=== PATIENT | male | born 1930 | race Caucasian/White ===

== ENCOUNTER → 2016-12-07 | Outpatient (CLI) | payer MEDICARE, MEDICAID | LOC: RAD 12:40 | PROVIDERS: ATTEND Internal Medicine | DX: D41.02 Neoplasm of uncertain behavior of left kidney (principal) | CPT/HCPCS: 74177; 82565 ==

== ENCOUNTER 2017-02-22 13:03 | Observation (INO) | payer MEDICARE, MEDICAID ==
[2017-02-22 14:39] LABS: ALANINE AMINOTRANSFERASE 21 U/L (21-72); ALBUMIN 3.6 g/dL (3.5-5.0); ALKALINE PHOSPHATASE 105 U/L (38-126); ANION GAP 10 (5-19); ASPARTATE AMINO TRANSFERASE 20 U/L (17-59); BILIRUBIN,DIRECT 0.3 mg/dL (0.0-0.4); BILIRUBIN,TOTAL 0.6 mg/dL (0.2-1.3); BLOOD UREA NITROGEN 12 mg/dL (7-20); CALCIUM 8.3 mg/dL (8.4-10.2); CARBON DIOXIDE 22 mmol/L (22-30); CHLORIDE 107 mmol/L (98-107); CREATINE KINASE 66 U/L (55-170); CREATININE RESULT 0.98 mg/dL (0.52-1.25); GLUCOSE 129 mg/dL (75-110); POTASSIUM 4.2 mmol/L (3.6-5.0); SODIUM 138.8 mmol/L (137-145); TOTAL PROTEIN 6.8 g/dL (6.3-8.2)
[2017-02-22 14:41] LABS: ABSOLUTE BASOPHILS # (AUTO) 0.1 10^3/uL (0.0-0.2); ABSOLUTE EOSINOPHILS # (AUTO) 0.3 10^3/uL (0.0-0.6); ABSOLUTE LYMPHOCYTES (AUTO) 1.8 10^3/uL (0.5-4.7); ABSOLUTE MONOCYTES (AUTO) 0.8 10^3/uL (0.1-1.4); ABSOLUTE NEUT (AUTO) 5.7 10^3/uL (1.7-8.2); BASOPHILS % (AUTO) 0.7 % (0-2); EOSINOPHILS % (AUTO) 3.5 % (0-6); HEMATOCRIT 38.1 % (37.9-51.0); HEMOGLOBIN 13.4 g/dL (13.5-17.0); HGB HCT DIFFERENCE 2.1; LYMPHOCYTES % (AUTO) 21.3 % (13-45); MEAN CORPUSCULAR HEMOGLOBIN 32.1 pg (27.0-33.4); MEAN CORPUSCULAR HGB CONC 35.3 g/dL (32.0-36.0); MEAN CORPUSCULAR VOLUME 91 fl (80-97); MONOCYTES % (AUTO) 8.6 % (3-13); RED BLOOD COUNT 4.19 10^6/uL (4.35-5.55); RED CELL DISTRIBUTION WIDTH 13.9 % (11.5-14.0); SEGMENTED NEUTROPHILS % (AUTO) 65.9 % (42-78); WHITE BLOOD COUNT 8.7 10^3/uL (4.0-10.5)
--- NOTE | 2017-02-22 14:58 | RADIOLOGY REPORT (SQ) ---
EXAM DESCRIPTION: CHEST SINGLE VIEW COMPLETED DATE/TIME: 02/22/2017 2:43 pm REASON FOR STUDY: chest pain COMPARISON: July 2016 EXAM PARAMETERS: NUMBER OF VIEWS: One view. TECHNIQUE: Single frontal radiographic view of the chest acquired. RADIATION DOSE: NA LIMITATIONS: None. FINDINGS: LUNGS AND PLEURA: No opacities, masses or pneumothorax. No pleural effusion. MEDIASTINUM AND HILAR STRUCTURES: No masses. Contour normal. HEART AND VASCULAR STRUCTURES: Heart normal in size. Normal vasculature. BONES: No acute findings. HARDWARE: None in the chest. OTHER: No other significant finding. IMPRESSION: NO ACUTE RADIOGRAPHIC FINDING IN THE CHEST. TECHNICAL DOCUMENTATION: JOB ID: [id number]
--- NOTE | 2017-02-22 15:31 | ER Document Report ---
ED General - General Chief Complaint: Chest Pain Stated Complaint: CHEST PAIN Time Seen by Provider: 02/22/17 13:17 Mode of Arrival: Ambulatory Information source: Patient Notes: 86-year-old male history of 4 previous cardiac stents presents with complaints of chest pain. Patient also notes that he has a buttocks abscess on the right. Patient notes his chest pain is what brought him in a while is here he would like his abscess evaluated as well. Patient denies any shortness of breath difficulty breathing denies this feeling like previous heart attacks TRAVEL OUTSIDE OF THE [place] IN LAST 30 DAYS: No - HPI Onset: Just prior to arrival Onset/Duration: Persistent Quality of pain: Achy Severity: Mild Pain Level: 1 Associated symptoms: Chest pain, Other Exacerbated by: Movement, Walking - Puts pressure on his right buttocks abscess Relieved by: Other - Chest pain improved with nitroglycerin Similar symptoms previously: Yes Recently seen / treated by doctor: Yes - Related Data Allergies/Adverse Reactions: Sulfa (Sulfonamide Antibiotics) Allergy (Unknown, Verified 02/22/17 13:23) RASH Past Medical History - Social History Smoking Status: Current Some Day Smoker Cigarette use (# per day): Yes Chew tobacco use (# tins/day): No Smoking Education Provided: No Frequency of alcohol use: "former drinker" Drug Abuse: None Family History: Reviewed & Not Pertinent, CAD - Past Medical History Cardiac Medical History: Reports: Hx Coronary Artery Disease, Hx Heart Attack, Hx Hypercholesterolemia, Hx Hypertension Denies: Hx Atrial Fibrillation, Hx Congestive Heart Failure, Hx Peripheral Vascular Disease, Hx Pulmonary Embolism, Hx Heart Murmur Pulmonary Medical History: Reports: Hx Bronchitis, Hx Pneumonia Denies: Hx Asthma, Hx COPD, Hx Respiratory Failure, Hx Sleep Apnea, Hx Tuberculosis Neurological Medical History: Reports: Hx Cerebrovascular Accident - L SIDE WEAKNESS. Denies: Hx Seizures Endocrine Medical History: Denies: Hx Graves' Disease, Hx Hyperthyroidism, Hx Hypothyroidism Renal/ Medical History: Denies: Hx Benign Prostatic Hyperplasia, Hx End Stage Renal Disease, Hx Kidney Stones, Hx Peritoneal Dialysis Malignancy Medical History: Denies Hx Leukemia, Denies Hx Lung Cancer GI Medical History: Reports: Hx Gastroesophageal Reflux Disease, Hx Hepatitis. Denies: Hx Crohn's Disease, Hx Hiatal Hernia, Hx Irritable Bowel, Hx Liver Failure, Hx Ulcer Musculoskeltal Medical History: Reports Hx Arthritis, Denies Hx Fibromyalgia, Denies Hx Multiple Sclerosis, Denies Hx Muscular Dystrophy Skin Medical History: Reports Hx MRSA Psychiatric Medical History: Reports: Hx Anxiety, Hx Dementia, Hx Depression Denies: Hx Bipolar Disorder, Hx Post Traumatic Stress Disorder, Hx Schizophrenia Traumatic Medical History: Reports: Hx Fractures Infectious Medical History: Reports: Hx Hepatitis. Denies: Hx HIV Past Surgical History: Reports: Hx Abdominal Surgery, Hx Appendectomy, Hx Cardiac Catheterization, Hx Cardiac Surgery - x4, Hx Coronary Stent - X 4. Denies: Hx Bowel Surgery, Hx Cholecystectomy, Hx Colostomy, Hx Coronary Artery Bypass Graft, Hx Gastric Bypass Surgery, Hx Herniorrhaphy, Hx Open Heart Surgery , Hx Pacemaker, Hx Tonsillectomy - Immunizations Immunizations up to date: Yes Hx Diphtheria, Pertussis, Tetanus Vaccination: Yes Hx Pneumococcal Vaccination: 08/05/10 Review of Systems - Review of Systems Notes: REVIEW OF SYSTEMS: CONSTITUTIONAL : Denies fever, chills, or sweats. Denies recent illness. EENT: Denies eye, ear, throat, or mouth pain or symptoms. Denies nasal or sinus congestion or discharge. Denies throat, tongue, or mouth swelling or difficulty swallowing. CARDIOVASCULAR: Admits to chest pain RESPIRATORY: Denies cough, cold, or chest congestion. Denies shortness of breath, difficulty breathing, or wheezing. GASTROINTESTINAL: Denies abdominal pain or distention. Denies nausea, vomiting , or diarrhea. Denies blood in vomitus, stools, or per rectum. Denies black, tarry stools. Denies constipation. GENITOURINARY: Denies difficulty urinating, painful urination, burning, frequency, blood in urine, or discharge. MUSCULOSKELETAL: Denies back or neck pain or stiffness. Denies joint pain or swelling. SKIN: Admits to buttocks abscess HEMATOLOGIC : Denies easy bruising or bleeding. LYMPHATIC: Denies swollen, enlarged glands. NEUROLOGICAL: Denies confusion or altered mental status. Denies passing out or loss of consciousness. Denies dizziness or lightheadedness. Denies headache. Denies weakness or paralysis or loss of use of either side. Denies problems with gait or speech. Denies sensory loss, numbness, or tingling. Denies seizures. PSYCHIATRIC: Denies anxiety or stress. Denies depression, suicidal ideation, or homicidal ideation. ALL OTHER SYSTEMS REVIEWED AND NEGATIVE. Dictation was performed using Dragon voice recognition software PHYSICAL EXAMINATION: GENERAL: Well-appearing, well-nourished and in no acute distress. HEAD: Atraumatic, normocephalic. EYES: Pupils equal round and reactive to light, extraocular movements intact, sclera anicteric, conjunctiva are normal. ENT: Nares patent, oropharynx clear without exudates. Moist mucous membranes. NECK: Normal range of motion, supple without lymphadenopathy LUNGS: Breath sounds clear to auscultation bilaterally and equal. No wheezes rales or rhonchi. HEART: Regular rate and rhythm without murmurs ABDOMEN: Soft, nontender, nondistended abdomen. No guarding, no rebound. No masses appreciated. Musculoskeletal: Normal range of motion, no pitting or edema. No cyanosis. NEUROLOGICAL: Cranial nerves grossly intact. Normal speech, normal gait. Normal sensory, motor exams PSYCH: Normal mood, normal affect. SKIN: 2 x 3 cm abscess of the right buttocks with area of cellulitis 5 mm around Physical Exam - Vital signs Vitals: Resp Pulse Ox 13 97 02/22/17 13:13 02/22/17 13:13 Course - Re-evaluation Re-evalutation: 02/22/17 15:30 Area was anesthetized in size mild amount of pus was drained, patient does have normal cardiac enzymes paged 02/22/17 16:00 Cardiac enzymes were negative patient will be observed by primary care physician - Vital Signs Vital signs: Temp Pulse Resp BP Pulse Ox 12 125/68 97 02/22/17 13:19 02/22/17 13:19 02/22/17 13:19 - Laboratory Result Diagrams: 02/22/17 13:18 02/22/17 13:18 Laboratory results interpreted by me: 02/22/17 02/22/17 13:18 13:18 RBC 4.19 L Hgb 13.4 L Glucose 129 H Calcium 8.3 L - Diagnostic Test Radiology reviewed: Image reviewed, Reports reviewed - EKG Interpretation by Me EKG shows normal: Sinus rhythm, Branch, Intervals, QRS Complexes Discharge - Discharge Clinical Impression: Abscess Coronary artery disease Qualifiers: Coronary Disease-Associated Artery/Lesion type: unspecified vessel or lesion type [place] vs. transplanted heart: [place] heart Associated angina: without angina Qualified Code(s): I25.10 - Atherosclerotic heart disease of [place] coronary artery without angina pectoris Chest pain Qualifiers: Chest pain type: unspecified Qualified Code(s): R07.9 - Chest pain, unspecified Condition: Stable Disposition: ADMITTED OBSERVATION Admitting Provider: Alejandra Instructions: Abscess ([facility])
[2017-02-22] MEDS ORDERED: (PENDING PHARMACY ID) (Oxycodone Hcl/Acetaminophen [Oxycodone-Acetaminophen 10-325] 1 TAB) PO PRN (21:41)
[2017-02-22] MEDS ORDERED: OXYCODONE-ACETAMINOPHEN 5-325 MG TABLET PO PRN (21:46)
[2017-02-22] MEDS ORDERED: OXYCODONE HCL IR 5 MG TABLET PO PRN (21:47)
[2017-02-22] MEDS ORDERED: (PENDING PHARMACY ID) (Buspirone Hcl [Buspar 15 Mg Tablet] 7.5 MG) PO SCH (22:00)
[2017-02-22] MEDS ORDERED: (PENDING PHARMACY ID) (Donepezil Hcl [Aricept] 10 MG) PO SCH (22:00)
[2017-02-22] MEDS ORDERED: DONEPEZIL HCL 5 MG TABLET PO SCH (22:00)
[2017-02-22] MEDS ORDERED: ATORVASTATIN CALCIUM 10 MG TABLET PO SCH (22:00)
[2017-02-22] MEDS ORDERED: (PENDING PHARMACY ID) (Pravastatin Sodium [Pravachol] 40 MG) PO SCH (22:00)
[2017-02-22] MEDS ORDERED: RANITIDINE HCL 150 MG PO SCH (22:00)
[2017-02-22] MEDS ORDERED: ALBUTEROL SULFATE HFA (90 MCG/PUFF) 200 PUFF/8.5 GM MDI IH PRN (22:16)
[2017-02-22 22:20] LABS: CREATINE KINASE MB 0.99 ng/mL (<4.55)
[2017-02-22 22:23] LABS: TROPONIN I < 0.012 ng/mL
[2017-02-22] MEDS ORDERED: VALSARTAN 40 MG TABLET ONE (23:35)
[2017-02-22] MEDS: VALSARTAN 40 MG TABLET PO SCH (23:36)
[2017-02-22] MEDS: CARVEDILOL 3.125 MG TABLET PO SCH (23:36)
[2017-02-22] MEDS: FAMOTIDINE 20 MG TABLET PO SCH (23:37)
[2017-02-23 07:44] LABS: CREATINE KINASE MB 0.98 ng/mL (<4.55)
[2017-02-23 07:45] LABS: TROPONIN I < 0.012 ng/mL
[2017-02-23] MEDS ORDERED: ASPIRIN 81 MG TABLET, CHEWABLE PO SCH (10:00)
[2017-02-23] MEDS ORDERED: CLOPIDOGREL BISULFATE 75 MG TABLET PO SCH (10:00)
[2017-02-23] MEDS: CARVEDILOL 3.125 MG TABLET PO SCH (11:15)
[2017-02-23] MEDS: FAMOTIDINE 20 MG TABLET PO SCH (11:15)
[2017-02-23] MEDS: VALSARTAN 40 MG TABLET PO SCH (11:22)
[2017-02-23 13:17] VITALS: BP 126/69
--- NOTE | 2017-02-23 14:29 | PDOC H&P ---
History of Present Illness Admission Date/PCP: 02/22/17 21:08 STEVEN PÉREZ MD History of Present Illness: JERRY PELAEZ is a 86 year old male, Patient is well-known to me he has a history of coronary artery disease, he came to the emergency room for evaluation of an abscess in the buttock, he was evaluated in the emergency room incision and drainage of the abscess was done. He complained of chest pain, because of the underlying history of coronary artery disease the emergency room physician is recommending hospital admission for observation to rule out acute coronary syndrome. He was admitted for 24 hours the cardiac enzymes were negative for any acute myocardial infarction, the chest pain is atypical in character, the pretest probability for ischemic chest pain is very low. Past Medical History Cardiac Medical History: Reports: Coronary Artery Disease, Myocardial Infarction , Hyperlipidema, Hypertension Pulmonary Medical History: Reports: Bronchitis, Pneumonia Malignancy Medical History: Reports: Renal (Kidney) Cancer GI Medical History: Reports: Gastroesophageal Reflux Disease, Hepatitis Musculoskeltal Medical History: Reports: Arthritis Denies: Fibromyalgia Psychiatric Medical History: Reports: Dementia, Depression Past Surgical History Past Surgical History: Reports: Appendectomy, Cardiac Catheterization, Coronary Stent - X 4 Social History Smoking Status: Former Smoker Last Time Smoked: unknown Frequency of Alcohol Use: None Hx Recreational Drug Use: No Drugs: None Hx Prescription Drug Abuse: No Family History Family History: Reviewed & Not Pertinent, CAD Parental Family History Reviewed: Yes Children Family History Reviewed: Yes Sibling(s) Family History Reviewed.: Yes Medication/Allergy Home Medications: Albuterol Sulfate [Proair HFA] 2 puff IH Q4 PRN 02/22/17 Aspirin [Aspirin 81 mg Chewable Tablet] 81 mg PO DAILY 02/22/17 Buspirone HCl [Buspar 15 mg Tablet] 7.5 mg PO Q12 02/22/17 Carvedilol [Coreg 3.125 mg Tablet] 3.125 mg PO Q12 02/22/17 Clopidogrel Bisulfate [Clopidogrel] 75 mg PO DAILY 02/22/17 Donepezil HCl [Aricept] 10 mg PO QHS 02/22/17 Oxycodone HCl/Acetaminophen [Oxycodone-Acetaminophen 10-325] 1 tab PO Q6HP PRN 02/22/17 Pravastatin Sodium [Pravachol] 40 mg PO QHS 07/21/17 Ranitidine HCl [Zantac 75 mg Tablet] 150 mg PO Q12 02/22/17 Valsartan [Diovan 40 mg Tablet] 40 mg PO Q12 02/22/17 Allergies/Adverse Reactions: Sulfa (Sulfonamide Antibiotics) Allergy (Unknown, Verified 02/22/17 13:23) RASH Review of Systems Constitutional: ABSENT: chills, fever(s), headache(s), weight gain, weight loss Eyes: ABSENT: visual disturbances Ears: ABSENT: hearing changes Cardiovascular: PRESENT: chest pain Respiratory: ABSENT: cough, hemoptysis Gastrointestinal: ABSENT: abdominal pain, constipation, diarrhea, hematemesis, hematochezia, nausea, vomiting Genitourinary: ABSENT: dysuria, hematuria Musculoskeletal: ABSENT: joint swelling Integumentary: ABSENT: rash, wounds Neurological: ABSENT: abnormal gait, abnormal speech, confusion, dizziness, focal weakness, syncope Psychiatric: ABSENT: anxiety, depression, homidical ideation, suicidal ideation Endocrine: ABSENT: cold intolerance, heat intolerance, menstrual abnormalities, polydipsia, polyuria Hematologic/Lymphatic: ABSENT: easy bleeding, easy bruising, lymphadenopathy Physical Exam Vital Signs: Temp Pulse Resp BP Pulse Ox 98.1 F 59 L 17 126/69 H 97 02/23/17 13:06 02/23/17 13:06 02/23/17 13:06 02/23/17 13:06 02/23/17 13:06 Intake & Output 02/22/17 02/23/17 02/24/17 06:59 06:59 06:59 Intake Total 500 Output Total 460 Balance 40 General appearance: PRESENT: no acute distress, well-developed, well-nourished Head exam: PRESENT: atraumatic, normocephalic Eye exam: PRESENT: conjunctiva pink, EOMI, PERRLA Mouth exam: PRESENT: moist, tongue midline Neck exam: PRESENT: full ROM Respiratory exam: PRESENT: clear to auscultation alicia Cardiovascular exam: PRESENT: RRR, +S1, +S2 Pulses: PRESENT: normal dorsalis pedis pul, +2 pedal pulses bilateral Vascular exam: PRESENT: normal capillary refill GI/Abdominal exam: PRESENT: normal bowel sounds, soft Rectal exam: PRESENT: deferred Neurological exam: PRESENT: alert, awake, oriented to person, oriented to place , oriented to time, oriented to situation, CN II-XII grossly intact. ABSENT: motor sensory deficit Psychiatric exam: PRESENT: appropriate affect, normal mood. ABSENT: homicidal ideation, suicidal ideation Skin exam: PRESENT: dry, intact, warm, other - There is incised abscess in the buttock. ABSENT: cyanosis, rash Results Laboratory Results: 02/22/17 02/22/17 02/23/17 21:40 21:40 05:50 Creatine Kinase 58 59 CK-MB (CK-2) 0.99 Troponin I < 0.012 02/23/17 05:50 Creatine Kinase CK-MB (CK-2) 0.98 Troponin I < 0.012 Impressions: Chest X-Ray 02/22/17 14:02 IMPRESSION: NO ACUTE RADIOGRAPHIC FINDING IN THE CHEST. Assessment & Plan - Diagnosis (1) Chest pain Qualifiers: Chest pain type: unspecified Qualified Code(s): R07.9 - Chest pain, unspecified Is this a current diagnosis for this admission?: Yes (2) Abscess of buttock, right Is this a current diagnosis for this admission?: Yes
[2017-02-23] MEDS ORDERED: CLINDAMYCIN HCL 150 MG CAPSULE PO SCH (14:30)
--- NOTE | 2017-02-23 14:36 | PDOC DISCHARGE SUMMARY ---
General - Admit/Disc Date/PCP Admission Date/Primary Care Provider: 02/22/17 21:08 STEVEN PÉREZ MD Discharge Date: 02/23/17 - Discharge Diagnosis (1) Chest pain Is this a current diagnosis for this admission?: Yes (2) Abscess of buttock, right Is this a current diagnosis for this admission?: Yes - Additional Information Discharge Diet: As Tolerated Discharge Activity: Activity As Tolerated Home Medications: Albuterol Sulfate [Proair HFA] 2 puff IH Q4 PRN 02/22/17 Aspirin [Aspirin 81 mg Chewable Tablet] 81 mg PO DAILY 02/22/17 Buspirone HCl [Buspar 15 mg Tablet] 7.5 mg PO Q12 02/22/17 Carvedilol [Coreg 3.125 mg Tablet] 3.125 mg PO Q12 02/22/17 Clopidogrel Bisulfate [Clopidogrel] 75 mg PO DAILY 02/22/17 Donepezil HCl [Aricept] 10 mg PO QHS 02/22/17 Oxycodone HCl/Acetaminophen [Oxycodone-Acetaminophen 10-325] 1 tab PO Q6HP PRN 02/22/17 Pravastatin Sodium [Pravachol] 40 mg PO QHS 02/22/17 Ranitidine HCl [Zantac 75 mg Tablet] 150 mg PO Q12 02/22/17 Valsartan [Diovan 40 mg Tablet] 40 mg PO Q12 02/22/17 Clindamycin HCl 300 mg PO Q8 #30 capsule 02/23/17 History of Present Illness History of Present Illness: JERRY PELAEZ is a 86 year old male, Patient is well-known to me he has a history of coronary artery disease, he came to the emergency room for evaluation of an abscess in the buttock, he was evaluated in the emergency room incision and drainage of the abscess was done. He complained of chest pain, because of the underlying history of coronary artery disease the emergency room physician is recommending hospital admission for observation to rule out acute coronary syndrome. He was admitted for 24 hours the cardiac enzymes were negative for any acute myocardial infarction, the chest pain is atypical in character, the pretest probability for ischemic chest pain is very low. Hospital Course Hospital Course: Patient was admitted for management of chest pain, the chest pain is atypical most likely is musculoskeletal chest pain, series of cardiac enzymes were drawn there were negative for acute ID. He came to the emergency room originally for evaluation of an abscess in the right buttock, the abscess was I&D in the emergency room. He complaint of chest pain in the ER, the ED physician is requesting, recommending that patient be admitted to ensure there is no ongoing acute coronary syndrome because of the underlining coronary artery disease. Physical Exam Vital Signs: Temp Pulse Resp BP Pulse Ox 98.1 F 59 L 17 126/69 H 97 02/23/17 13:06 02/23/17 13:06 02/23/17 13:06 02/23/17 13:06 02/23/17 13:06 Intake & Output 02/22/17 02/23/17 02/24/17 06:59 06:59 06:59 Intake Total 500 Output Total 460 Balance 40 General appearance: PRESENT: no acute distress, well-developed, well-nourished Head exam: PRESENT: atraumatic, normocephalic Eye exam: PRESENT: conjunctiva pink, EOMI, PERRLA Neck exam: PRESENT: full ROM Respiratory exam: PRESENT: clear to auscultation alicia Cardiovascular exam: PRESENT: RRR, +S1, +S2 Pulses: PRESENT: normal dorsalis pedis pul, +2 pedal pulses bilateral Vascular exam: PRESENT: normal capillary refill GI/Abdominal exam: PRESENT: normal bowel sounds, soft Rectal exam: PRESENT: deferred Neurological exam: PRESENT: alert, awake, oriented to person, oriented to place , oriented to time, oriented to situation, CN II-XII grossly intact. ABSENT: motor sensory deficit Psychiatric exam: PRESENT: appropriate affect, normal mood Skin exam: PRESENT: dry, intact, warm Results Laboratory Results: 02/22/17 02/22/17 02/23/17 21:40 21:40 05:50 Creatine Kinase 58 59 CK-MB (CK-2) 0.99 Troponin I < 0.012 02/23/17 05:50 Creatine Kinase CK-MB (CK-2) 0.98 Troponin I < 0.012 Impressions: Chest X-Ray 02/22/17 14:02 IMPRESSION: NO ACUTE RADIOGRAPHIC FINDING IN THE CHEST.
--- NOTE | 2017-02-24 13:46 | EKG REPORT ---
SEVERITY:- NORMAL ECG - SINUS RHYTHM : Confirmed by: Marta Jules MD 24-Feb-2017 13:45:25
== END 2017-02-23 14:32 | disposition home or self-care (01) ==
LOC: ER 13:03 → EH 16:35 → UNDOADMOB 16:35 → INTOOBSV 16:35 → OBSVTOIN 16:35 → 4N 19:55 → EH 19:55 → OBSVTOIN 21:08 → EH 21:08 → 4N 21:08 → INTOOBSV 21:08
PROVIDERS: ADMIT Internal Medicine; ATTEND Internal Medicine
PROC: 0H98XZZ Drainage of Buttock Skin, External Approach (ICD-10-PCS; principal; 2017-02-22)
DX: R07.89 Other chest pain (principal); L02.31 Cutaneous abscess of buttock; I25.10 Atherosclerotic heart disease of native coronary artery without angina pectoris; I10 Essential (primary) hypertension; F03.90 Unspecified dementia, unspecified severity, without behavioral disturbance, psychotic disturbance, mood disturbance, and anxiety; K21.9 Gastro-esophageal reflux disease without esophagitis; I69.354 Hemiplegia and hemiparesis following cerebral infarction affecting left non-dominant side; Z79.899 Other long term (current) drug therapy; Z79.82 Long term (current) use of aspirin; Z79.02 Long term (current) use of antithrombotics/antiplatelets; Z95.5 Presence of coronary angioplasty implant and graft; Z85.528 Personal history of other malignant neoplasm of kidney; Z90.49 Acquired absence of other specified parts of digestive tract; Z87.891 Personal history of nicotine dependence; Z82.49 Family history of ischemic heart disease and other diseases of the circulatory system; Z86.14 Personal history of Methicillin resistant Staphylococcus aureus infection
CPT/HCPCS: 93005; 99285; 36415 ×2; 82553 ×2; 82550 ×2; 85025; 80053; 84484 ×2; 71010; 93010; 10060; A9270 ×12; J3490

== ENCOUNTER → 2017-04-04 | Outpatient (CLI) | payer MEDICARE, MEDICAID ==
[2017-04-04 18:31] LABS: CREATININE RESULT 0.93 mg/dL (0.52-1.25)
== END ==
LOC: LAB 17:42
DX: N28.89 Other specified disorders of kidney and ureter (principal)
CPT/HCPCS: 36415; 82565

== ENCOUNTER 2017-09-13 11:37 | Observation (INO) | payer MEDICARE, MEDICAID ==
[2017-09-13 11:58] LABS: ABSOLUTE BASOPHILS # (AUTO) 0.1 10^3/uL (0.0-0.2); ABSOLUTE EOSINOPHILS # (AUTO) 0.2 10^3/uL (0.0-0.6); ABSOLUTE MONOCYTES (AUTO) 0.6 10^3/uL (0.1-1.4); ABSOLUTE NEUT (AUTO) 3.7 10^3/uL (1.7-8.2); BASOPHILS % (AUTO) 0.9 % (0-2); EOSINOPHILS % (AUTO) 3.7 % (0-6); HEMATOCRIT 41.5 % (37.9-51.0); HEMOGLOBIN 14.2 g/dL (13.5-17.0); MEAN CORPUSCULAR HEMOGLOBIN 30.9 pg (27.0-33.4); MEAN CORPUSCULAR HGB CONC 34.2 g/dL (32.0-36.0); MEAN CORPUSCULAR VOLUME 90 fl (80-97); MONOCYTES % (AUTO) 9.2 % (3-13); PLATELET COUNT 286 10^3/uL (150-450); RED CELL DISTRIBUTION WIDTH 14.2 % (11.5-14.0); SEGMENTED NEUTROPHILS % (AUTO) 56.2 % (42-78); TOTAL CELLS COUNTED % (AUTO) 100 %; WHITE BLOOD COUNT 6.7 10^3/uL (4.0-10.5)
[2017-09-13 12:13] LABS: ALANINE AMINOTRANSFERASE 25 U/L (21-72); ALBUMIN 4.2 g/dL (3.5-5.0); ALKALINE PHOSPHATASE 95 U/L (38-126); ANION GAP 10 (5-19); ASPARTATE AMINO TRANSFERASE 20 U/L (17-59); BILIRUBIN,DIRECT 0.1 mg/dL (0.0-0.4); BILIRUBIN,TOTAL 0.5 mg/dL (0.2-1.3); BLOOD UREA NITROGEN 15 mg/dL (7-20); CALCIUM 9.1 mg/dL (8.4-10.2); CARBON DIOXIDE 27 mmol/L (22-30); CHLORIDE 102 mmol/L (98-107); CREATINE KINASE 55 U/L (55-170); GLUCOSE 109 mg/dL (75-110); POTASSIUM 4.1 mmol/L (3.6-5.0); SODIUM 139.3 mmol/L (137-145); TOTAL PROTEIN 6.8 g/dL (6.3-8.2)
--- NOTE | 2017-09-13 12:22 | RADIOLOGY REPORT (SQ) ---
EXAM DESCRIPTION: CHEST SINGLE VIEW COMPLETED DATE/TIME: 09/13/2017 12:13 pm REASON FOR STUDY: chest pain COMPARISON: None. EXAM PARAMETERS: NUMBER OF VIEWS: One view. TECHNIQUE: Single frontal radiographic view of the chest acquired. RADIATION DOSE: NA LIMITATIONS: None. FINDINGS: LUNGS AND PLEURA: No acute infiltrates. MEDIASTINUM AND HILAR STRUCTURES: No masses. Contour normal. HEART AND VASCULAR STRUCTURES: The heart is normal with aortic atherosclerosis. The pulmonary vascul ature normal. BONES: No acute findings. OTHER: Chest leads in place. IMPRESSION: NO ACUTE DISEASE. TECHNICAL DOCUMENTATION: JOB ID: [id number] [id number] [employer]- All Rights Reserved
--- NOTE | 2017-09-13 13:01 | ER Document Report ---
ED Cardiac - General Chief Complaint: Chest Pain Stated Complaint: CHEST PAIN Time Seen by Provider: 09/13/17 11:50 Notes: The patient is an 86-year-old male, past medical history CAD, hypertension, presents with 3 hours of left upper chest pain that resolved after a nitro and 325 mg aspirin by EMS prior to arrival. He is also having mild right upper chest pain with radiation to his shoulder yesterday and this morning. He saw his primary care physician, Dr. Roberts, 2 days ago. Patient denies current chest pain, shortness of breath, nausea, vomiting, back pain, fevers, leg swelling, abdominal pain, numbness, tingling or rash. TRAVEL OUTSIDE OF THE [place] IN LAST 30 DAYS: No - Related Data Allergies/Adverse Reactions: Sulfa (Sulfonamide Antibiotics) Allergy (Unknown, Verified 09/13/17 11:49) RASH Past Medical History - General Information source: Patient - Social History Smoking Status: Unknown if Ever Smoked Family History: Reviewed & Not Pertinent, CAD Patient has suicidal ideation: No Patient has homicidal ideation: No - Past Medical History Cardiac Medical History: Reports: Hx Coronary Artery Disease, Hx Heart Attack, Hx Hypercholesterolemia, Hx Hypertension Denies: Hx Atrial Fibrillation, Hx Congestive Heart Failure, Hx Peripheral Vascular Disease, Hx Pulmonary Embolism, Hx Heart Murmur Pulmonary Medical History: Reports: Hx Bronchitis, Hx Pneumonia Denies: Hx Asthma, Hx COPD, Hx Respiratory Failure, Hx Sleep Apnea, Hx Tuberculosis Neurological Medical History: Reports: Hx Cerebrovascular Accident - L SIDE WEAKNESS. Denies: Hx Seizures Endocrine Medical History: Denies: Hx Graves' Disease, Hx Hyperthyroidism, Hx Hypothyroidism Renal/ Medical History: Denies: Hx Benign Prostatic Hyperplasia, Hx End Stage Renal Disease, Hx Kidney Stones, Hx Peritoneal Dialysis Malignancy Medical History: Denies Hx Leukemia, Denies Hx Lung Cancer, Reports Hx Renal (Kidney) Cancer GI Medical History: Reports: Hx Gastroesophageal Reflux Disease, Hx Hepatitis. Denies: Hx Crohn's Disease, Hx Hiatal Hernia, Hx Irritable Bowel, Hx Liver Failure, Hx Pancreatitis, Hx Ulcer Musculoskeltal Medical History: Reports Hx Arthritis, Denies Hx Fibromyalgia, Denies Hx Multiple Sclerosis, Denies Hx Muscular Dystrophy Skin Medical History: Reports Hx MRSA Psychiatric Medical History: Reports: Hx Anxiety, Hx Dementia, Hx Depression Denies: Hx Bipolar Disorder, Hx Post Traumatic Stress Disorder, Hx Schizophrenia Traumatic Medical History: Reports: Hx Fractures Infectious Medical History: Reports: Hx Hepatitis. Denies: Hx HIV Past Surgical History: Reports: Hx Abdominal Surgery, Hx Appendectomy, Hx Cardiac Catheterization, Hx Cardiac Surgery - x4, Hx Coronary Stent - X 4. Denies: Hx Bowel Surgery, Hx Cholecystectomy, Hx Colostomy, Hx Coronary Artery Bypass Graft, Hx Gastric Bypass Surgery, Hx Herniorrhaphy, Hx Open Heart Surgery , Hx Pacemaker, Hx Tonsillectomy - Immunizations Immunizations up to date: Yes Hx Diphtheria, Pertussis, Tetanus Vaccination: Yes Hx Pneumococcal Vaccination: 08/05/10 Review of Systems - Review of Systems Notes: REVIEW OF SYSTEMS: CONSTITUTIONAL: -fevers, -chills EENT: -eye pain, -difficulty swallowing, -nasal congestion CARDIOVASCULAR: +chest pain, -syncope. RESPIRATORY: -cough, -SOB GASTROINTESTINAL: -abdominal pain, -nausea, -vomiting, -diarrhea GENITOURINARY: -dysuria, -hematuria MUSCULOSKELETAL: -back pain, -neck pain SKIN: -rash or skin lesions. HEMATOLOGIC: -easy bruising or bleeding. LYMPHATIC: -swollen, enlarged glands. NEUROLOGICAL: -altered mental status or loss of consciousness, -headache, - neurologic symptoms PSYCHIATRIC: -anxiety, -depression. ALL OTHER SYSTEMS REVIEWED AND NEGATIVE. Physical Exam - Vital signs Vitals: Temp 98.0 F 09/13/17 11:49 - Notes Notes: PHYSICAL EXAMINATION: GENERAL: Well-appearing, well-nourished and in no acute distress. HEAD: Atraumatic, normocephalic. EYES: Pupils equal round and reactive to light, extraocular movements intact, sclera anicteric, conjunctiva are normal. ENT: nares patent, oropharynx clear without exudates. Moist mucous membranes. NECK: Normal range of motion, supple without lymphadenopathy LUNGS: Breath sounds clear to auscultation bilaterally and equal. No wheezes rales or rhonchi. HEART: Regular rate and rhythm without murmurs ABDOMEN: Soft, nontender, normoactive bowel sounds. No guarding, no rebound. No masses appreciated. EXTREMITIES: Normal range of motion, no pitting or edema. No cyanosis. NEUROLOGICAL: Cranial nerves grossly intact. Normal speech, normal gait. Normal sensory and motor exams. PSYCH: Normal mood, normal affect. SKIN: Warm, Dry, normal turgor, no rashes or lesions noted. Course - Re-evaluation Re-evalutation: Patient is chest pain-free. His EKG does not show any acute changes, chest x- ray is negative for any acute findings and troponins are negative. Mina multiple cardiac risk factors, stress test was attempted to be obtained from the ER, but unable to perform at this time. His HEART score is 7. Symptoms are atypical for aortic dissection or PE at this time and he has remained chest pain -free while in the ER. 09/13/17 15:31 Spoke to his PMD, Dr. Roberts, and he agrees patient requires observation overnight and further evaluation of his chest pain due to his HEART score of 7. - Vital Signs Vital signs: Temp Pulse Resp BP Pulse Ox 98.0 F 96 09/13/17 11:49 09/13/17 11:56 - Laboratory Result Diagrams: 09/13/17 11:41 09/13/17 11:41 Laboratory results interpreted by me: 09/13/17 11:41 RDW 14.2 H - Diagnostic Test Radiology reviewed: Image reviewed, Reports reviewed Radiology results interpreted by me: CXR: NAD - EKG Interpretation by Mo EKG shows normal: Sinus rhythm, [place], Intervals, QRS Complexes, ST-T Waves Rate: Normal When compared to previous EKG there are: No significant change Discharge - Discharge Clinical Impression: Chest pain Qualifiers: Chest pain type: unspecified Qualified Code(s): R07.9 - Chest pain, unspecified Condition: Stable Disposition: ADMITTED OBSERVATION Admitting Provider: Alejandra Unit Admitted: Telemetry
[2017-09-13 16:18] VITALS: BP 152/77
[2017-09-13] MEDS ORDERED: (PENDING PHARMACY ID) (Oxycodone Hcl/Acetaminophen [Percocet 10-325 Mg Tablet] 1 TAB) PO PRN (17:27)
[2017-09-13] MEDS ORDERED: (PENDING PHARMACY ID) (Pravastatin Sodium [Pravachol] 40 MG) PO SCH (17:30)
[2017-09-13] MEDS ORDERED: OXYCODONE-ACETAMINOPHEN 5-325 MG TABLET PO PRN (17:40)
[2017-09-13] MEDS ORDERED: OXYCODONE HCL IR 5 MG TABLET PO PRN (17:41)
[2017-09-13] MEDS ORDERED: ALBUTEROL SULFATE HFA (90 MCG/PUFF) 200 PUFF/8.5 GM MDI IH PRN (17:45)
[2017-09-13] MEDS ORDERED: CLOPIDOGREL BISULFATE 75 MG TABLET PO SCH (18:00)
[2017-09-13] MEDS ORDERED: (PENDING PHARMACY ID) (Ranitidine Hcl [Zantac 150 Mg Tablet] 150 MG) PO SCH (18:00)
[2017-09-13] MEDS ORDERED: MONTELUKAST SODIUM 10 MG TABLET PO SCH (18:00)
[2017-09-13] MEDS ORDERED: ASPIRIN 81 MG TABLET, CHEWABLE PO SCH (18:00)
[2017-09-13] MEDS ORDERED: (PENDING PHARMACY ID) (Buspirone Hcl [Buspar 15 Mg Tablet] 7.5 MG) PO SCH (18:00)
[2017-09-13] MEDS ORDERED: BUSPIRONE HCL 10 MG TABLET PO SCH (22:00)
[2017-09-13] MEDS ORDERED: CARVEDILOL 3.125 MG TABLET PO SCH (22:00)
[2017-09-13] MEDS ORDERED: FAMOTIDINE 20 MG TABLET PO SCH (22:00)
[2017-09-13] MEDS ORDERED: DONEPEZIL HCL 5 MG TABLET PO SCH (22:00)
[2017-09-13] MEDS ORDERED: ATORVASTATIN CALCIUM 10 MG TABLET PO SCH (22:00)
[2017-09-13] MEDS ORDERED: (PENDING PHARMACY ID) (Donepezil Hcl [Aricept] 10 MG) PO SCH (22:00)
[2017-09-13] MEDS ORDERED: VALSARTAN 40 MG TABLET PO SCH (22:00)
--- NOTE | 2017-09-13 22:08 | EKG REPORT ---
SEVERITY:- NORMAL ECG - SINUS RHYTHM : Confirmed by: Austin Mcnulty 13-Sep-2017 22:07:20
== END 2017-09-13 17:05 | disposition left against medical advice (07) ==
LOC: ER 11:37 → EH 15:58
PROVIDERS: ADMIT Internal Medicine; ATTEND Internal Medicine
DX: R07.9 Chest pain, unspecified (principal); I25.10 Atherosclerotic heart disease of native coronary artery without angina pectoris; Z53.21 Procedure and treatment not carried out due to patient leaving prior to being seen by health care provider; I69.354 Hemiplegia and hemiparesis following cerebral infarction affecting left non-dominant side; Z82.49 Family history of ischemic heart disease and other diseases of the circulatory system; Z95.5 Presence of coronary angioplasty implant and graft; Z90.49 Acquired absence of other specified parts of digestive tract
CPT/HCPCS: 36415; 71045; 80053; 82550; 84484; 85025; 93005; 93010; 99285; J3490

== ENCOUNTER 2017-11-19 11:47 | Observation (INO) | payer MEDICARE, MEDICAID ==
[2017-11-19] MEDS ORDERED: ASPIRIN 81 MG TABLET, CHEWABLE PO ONE (13:20)
[2017-11-19 13:46] LABS: ABSOLUTE BASOPHILS # (AUTO) 0.1 10^3/uL (0.0-0.2); ABSOLUTE EOSINOPHILS # (AUTO) 0.3 10^3/uL (0.0-0.6); ABSOLUTE LYMPHOCYTES (AUTO) 2.4 10^3/uL (0.5-4.7); ABSOLUTE NEUT (AUTO) 5.3 10^3/uL (1.7-8.2); EOSINOPHILS % (AUTO) 2.8 % (0-6); HEMATOCRIT 43.4 % (37.9-51.0); HEMOGLOBIN 14.8 g/dL (13.5-17.0); LYMPHOCYTES % (AUTO) 26.8 % (13-45); MEAN CORPUSCULAR HEMOGLOBIN 30.9 pg (27.0-33.4); MEAN CORPUSCULAR HGB CONC 34.1 g/dL (32.0-36.0); MEAN CORPUSCULAR VOLUME 91 fl (80-97); MONOCYTES % (AUTO) 10.9 % (3-13); PLATELET COUNT 283 10^3/uL (150-450); RED BLOOD COUNT 4.79 10^6/uL (4.35-5.55); RED CELL DISTRIBUTION WIDTH 13.9 % (11.5-14.0); SEGMENTED NEUTROPHILS % (AUTO) 58.5 % (42-78); TOTAL CELLS COUNTED % (AUTO) 100 %
[2017-11-19 13:47] LABS: ALANINE AMINOTRANSFERASE 16 U/L (21-72); ALBUMIN 4.3 g/dL (3.5-5.0); ALKALINE PHOSPHATASE 101 U/L (38-126); ANION GAP 10 (5-19); ASPARTATE AMINO TRANSFERASE 31 U/L (17-59); BILIRUBIN,DIRECT 0.5 mg/dL (0.0-0.4); BILIRUBIN,TOTAL 0.7 mg/dL (0.2-1.3); BLOOD UREA NITROGEN 15 mg/dL (7-20); CALCIUM 9.5 mg/dL (8.4-10.2); CARBON DIOXIDE 29 mmol/L (22-30); CHLORIDE 101 mmol/L (98-107); CREATINE KINASE 59 U/L (55-170); GLUCOSE 100 mg/dL (75-110); POTASSIUM 4.6 mmol/L (3.6-5.0); SODIUM 139.5 mmol/L (137-145); TOTAL PROTEIN 8.3 g/dL (6.3-8.2)
[2017-11-19 13:58] LABS: CREATINE KINASE MB 0.91 ng/mL (<4.55)
[2017-11-19 13:59] LABS: TROPONIN I < 0.012 ng/mL
--- NOTE | 2017-11-19 14:14 | RADIOLOGY REPORT (SQ) ---
EXAM DESCRIPTION: CHEST SINGLE VIEW COMPLETED DATE/TIME: 11/19/2017 2:02 pm REASON FOR STUDY: chest pain COMPARISON: CT chest 10/02/2015 Chest films 08/26/2017, 02/22/2017 EXAM PARAMETERS: NUMBER OF VIEWS: One view. TECHNIQUE: Single frontal radiographic view of the chest acquired. RADIATION DOSE: NA LIMITATIONS: None. FINDINGS: LUNGS AND PLEURA: No opacities, masses or pneumothorax. No pleural effusion. MEDIASTINUM AND HILAR STRUCTURES: No masses. Contour normal. HEART AND VASCULAR STRUCTURES: Heart normal in size. Normal vasculature. BONES: Osteopenic. No acute changes HARDWARE: None in the chest. OTHER: No other significant finding. IMPRESSION: NO ACUTE RADIOGRAPHIC FINDING IN THE CHEST. TECHNICAL DOCUMENTATION: JOB ID: [id number] [employer]- All Rights Reserved Reading location - IP/workstation name: [email or web address]
--- NOTE | 2017-11-19 15:10 | ER Document Report ---
ED General - General Chief Complaint: Chest Pain Stated Complaint: CHEST PAIN Time Seen by Provider: 11/19/17 13:20 Mode of Arrival: Medic Information source: Patient, [facility] Records Notes: 87-year-old male history of 5 previous cardiac stents 4 MIs presents with complaints with chest pain . Patient notes it was a pressure sensation midsternal radiating around. Patient denies any fevers or chills denies any nausea or vomiting. Patient denies any swelling in extremities TRAVEL OUTSIDE OF THE [place] IN LAST 30 DAYS: No - HPI Onset: Just prior to arrival Onset/Duration: Sudden Quality of pain: Pressure Severity: Mild Pain Level: 1 Associated symptoms: Chest pain Exacerbated by: Denies Relieved by: Denies Similar symptoms previously: Yes Recently seen / treated by doctor: Yes - Related Data Allergies/Adverse Reactions: Sulfa (Sulfonamide Antibiotics) Allergy (Unknown, Verified 09/13/17 11:49) RASH Home Medications: aspirin. buspirone. carvedilol. clopidogrel. donepezil. pravastatin. ranitidine. valsartan Past Medical History - Social History Smoking Status: Never Smoker Cigarette use (# per day): No Chew tobacco use (# tins/day): No Smoking Education Provided: No Frequency of alcohol use: None Drug Abuse: None Family History: Reviewed & Not Pertinent, CAD Patient has suicidal ideation: No Patient has homicidal ideation: No - Past Medical History Cardiac Medical History: Reports: Hx Coronary Artery Disease, Hx Heart Attack, Hx Hypercholesterolemia, Hx Hypertension Denies: Hx Atrial Fibrillation, Hx Congestive Heart Failure, Hx Peripheral Vascular Disease, Hx Pulmonary Embolism, Hx Heart Murmur Pulmonary Medical History: Reports: Hx Bronchitis, Hx Pneumonia Denies: Hx Asthma, Hx COPD, Hx Respiratory Failure, Hx Sleep Apnea, Hx Tuberculosis Neurological Medical History: Reports: Hx Cerebrovascular Accident - L SIDE WEAKNESS. Denies: Hx Seizures Endocrine Medical History: Denies: Hx Graves' Disease, Hx Hyperthyroidism, Hx Hypothyroidism Renal/ Medical History: Denies: Hx Benign Prostatic Hyperplasia, Hx End Stage Renal Disease, Hx Kidney Stones, Hx Peritoneal Dialysis Malignancy Medical History: Denies Hx Leukemia, Denies Hx Lung Cancer, Reports Hx Renal (Kidney) Cancer GI Medical History: Reports: Hx Gastroesophageal Reflux Disease, Hx Hepatitis. Denies: Hx Crohn's Disease, Hx Hiatal Hernia, Hx Irritable Bowel, Hx Liver Failure, Hx Pancreatitis, Hx Ulcer Musculoskeltal Medical History: Reports Hx Arthritis, Denies Hx Fibromyalgia, Denies Hx Multiple Sclerosis, Denies Hx Muscular Dystrophy Skin Medical History: Reports Hx MRSA Psychiatric Medical History: Reports: Hx Anxiety, Hx Dementia, Hx Depression Denies: Hx Bipolar Disorder, Hx Post Traumatic Stress Disorder, Hx Schizophrenia Traumatic Medical History: Reports: Hx Fractures Infectious Medical History: Reports: Hx Hepatitis. Denies: Hx HIV Past Surgical History: Reports: Hx Abdominal Surgery, Hx Appendectomy, Hx Cardiac Catheterization, Hx Cardiac Surgery - x4, Hx Coronary Stent - X 4. Denies: Hx Bowel Surgery, Hx Cholecystectomy, Hx Colostomy, Hx Coronary Artery Bypass Graft, Hx Gastric Bypass Surgery, Hx Herniorrhaphy, Hx Open Heart Surgery , Hx Pacemaker, Hx Tonsillectomy - Immunizations Immunizations up to date: Yes Hx Diphtheria, Pertussis, Tetanus Vaccination: Yes Hx Pneumococcal Vaccination: 08/05/10 Review of Systems - Review of Systems Notes: REVIEW OF SYSTEMS: CONSTITUTIONAL : Denies fever, chills, or sweats. Denies recent illness. EENT: Denies eye, ear, throat, or mouth pain or symptoms. Denies nasal or sinus congestion or discharge. Denies throat, tongue, or mouth swelling or difficulty swallowing. CARDIOVASCULAR: chest pain RESPIRATORY: Denies cough, cold, or chest congestion. Denies shortness of breath, difficulty breathing, or wheezing. GASTROINTESTINAL: Denies abdominal pain or distention. Denies nausea, vomiting , or diarrhea. Denies blood in vomitus, stools, or per rectum. Denies black, tarry stools. Denies constipation. GENITOURINARY: Denies difficulty urinating, painful urination, burning, frequency, blood in urine, or discharge. MUSCULOSKELETAL: Denies back or neck pain or stiffness. Denies joint pain or swelling. SKIN: Denies rash, lesions or sores. HEMATOLOGIC : Denies easy bruising or bleeding. LYMPHATIC: Denies swollen, enlarged glands. NEUROLOGICAL: Denies confusion or altered mental status. Denies passing out or loss of consciousness. Denies dizziness or lightheadedness. Denies headache. Denies weakness or paralysis or loss of use of either side. Denies problems with gait or speech. Denies sensory loss, numbness, or tingling. Denies seizures. PSYCHIATRIC: Denies anxiety or stress. Denies depression, suicidal ideation, or homicidal ideation. ALL OTHER SYSTEMS REVIEWED AND NEGATIVE. Dictation was performed using [employer] voice recognition software PHYSICAL EXAMINATION: GENERAL: Well-appearing, well-nourished and in no acute distress. HEAD: Atraumatic, normocephalic. EYES: Pupils equal round and reactive to light, extraocular movements intact, sclera anicteric, conjunctiva are normal. ENT: Nares patent, oropharynx clear without exudates. Moist mucous membranes. NECK: Normal range of motion, supple without lymphadenopathy LUNGS: Breath sounds clear to auscultation bilaterally and equal. No wheezes rales or rhonchi. HEART: Regular rate and rhythm without murmurs ABDOMEN: Soft, nontender, nondistended abdomen. No guarding, no rebound. No masses appreciated. Musculoskeletal: Normal range of motion, no pitting or edema. No cyanosis. NEUROLOGICAL: Cranial nerves grossly intact. Normal speech, normal gait. Normal sensory, motor exams PSYCH: Normal mood, normal affect. SKIN: Warm, Dry, normal turgor, no rashes or lesions noted. Physical Exam - Vital signs Vitals: Temp Pulse Resp BP Pulse Ox 98.8 F 77 12 159/78 H 99 11/19/17 11:56 11/19/17 11:56 11/19/17 11:56 11/19/17 11:56 11/19/17 11:56 Course - Re-evaluation Re-evalutation: 11/19/17 15:59 This is a this is an overall well-appearing elderly male in no acute distress who presents with complaints of chest pain. Patient notes chest pain has since resolved he is unsure if this is more anxiety related or not however given his extensive cardiac history I do believe an ACS rule out is appropriate. I did speak with the patient's primary care physician he will observe the patient in the emergency department in the hospital overnight - Vital Signs Vital signs: Temp Pulse Resp BP Pulse Ox 98.8 F 77 19 148/84 H 93 11/19/17 11:56 11/19/17 11:56 11/19/17 15:01 11/19/17 15:01 11/19/17 15:01 - Laboratory Result Diagrams: 11/19/17 11:54 11/19/17 11:54 Laboratory results interpreted by me: 11/19/17 11:54 Direct Bilirubin 0.5 H ALT 16 L Total Protein 8.3 H - Diagnostic Test Radiology reviewed: Image reviewed - 2 view chest x-ray notes no acute abnormality, Reports reviewed - EKG Interpretation by Me EKG shows normal: Sinus rhythm, [place], Intervals, QRS Complexes When compared to previous EKG there are: No significant change Discharge - Discharge Clinical Impression: Chest pain in adult Coronary artery disease Qualifiers: Coronary Disease-Associated Artery/Lesion type: unspecified vessel or lesion type [place] vs. transplanted heart: [place] heart Associated angina: angina presence unspecified Qualified Code(s): I25.10 - Atherosclerotic heart disease of [place] coronary artery without angina pectoris Condition: Stable Disposition: ADMITTED OBSERVATION Admitting Provider: [facility] Unit Admitted: Telemetry Referrals: EMMANUEL GAMBLE MD [Primary Care Provider] - Follow up as needed
[2017-11-19] MEDS ORDERED: (PENDING PHARMACY ID) (Ranitidine Hcl [Zantac 150 Mg Tablet] 150 MG) PO SCH (18:15)
[2017-11-19] MEDS ORDERED: VALSARTAN 40 MG TABLET PO SCH ×2 (18:15→22:00)
[2017-11-19] MEDS ORDERED: (PENDING PHARMACY ID) (Buspirone Hcl [Buspar 15 Mg Tablet] 7.5 MG) PO SCH (18:15)
[2017-11-19] MEDS ORDERED: (PENDING PHARMACY ID) (Pravastatin Sodium [Pravachol] 40 MG) PO SCH (18:15)
[2017-11-19] MEDS ORDERED: CARVEDILOL 3.125 MG TABLET PO SCH ×2 (19:00→22:00)
[2017-11-19] MEDS ORDERED: CLOPIDOGREL BISULFATE 75 MG TABLET PO ONE (19:00)
[2017-11-19 19:06] LABS: CREATINE KINASE MB 0.83 ng/mL (<4.55)
[2017-11-19 19:13] LABS: TROPONIN I < 0.012 ng/mL
--- NOTE | 2017-11-19 21:36 | EKG REPORT ---
SEVERITY:- NORMAL ECG - SINUS RHYTHM : Confirmed by: Austin Mcnulty 19-Nov-2017 21:35:43
[2017-11-19] MEDS ORDERED: FAMOTIDINE 20 MG TABLET PO SCH (22:00)
[2017-11-19] MEDS ORDERED: ATORVASTATIN CALCIUM 10 MG TABLET PO SCH (22:00)
[2017-11-19] MEDS ORDERED: DONEPEZIL HCL 5 MG TABLET PO SCH (22:00)
[2017-11-19] MEDS ORDERED: (PENDING PHARMACY ID) (Donepezil Hcl [Aricept] 10 MG) PO SCH (22:00)
[2017-11-20 03:24] LABS: CREATINE KINASE MB 0.69 ng/mL (<4.55)
[2017-11-20 03:25] LABS: TROPONIN I < 0.012 ng/mL
[2017-11-20 07:58] VITALS: BP 118/67
[2017-11-20] MEDS ORDERED: ASPIRIN 81 MG TABLET, CHEWABLE PO SCH (10:00)
[2017-11-20] MEDS ORDERED: CLOPIDOGREL BISULFATE 75 MG TABLET PO SCH (10:00)
--- NOTE | 2017-11-20 14:11 | PDOC H&P ---
History of Present Illness Admission Date/PCP: 11/19/17 15:59 EMMANUEL GAMBLE History of Present Illness: JERRY PELAEZ is a 87 year old male, he has a history of coronary artery disease, he came to the emergency room for evaluation of chest pain the chest pain is atypical but because of his history of ischemic heart disease was admitted for observation, 3 sets of cardiac enzymes were done negative for acute DC Past Medical History Cardiac Medical History: Reports: Coronary Artery Disease, Myocardial Infarction - x4, Hyperlipidema, Hypertension Pulmonary Medical History: Reports: Asthma, Bronchitis, Pneumonia Malignancy Medical History: Reports: Renal (Kidney) Cancer GI Medical History: Reports: Gastroesophageal Reflux Disease, Hepatitis Musculoskeltal Medical History: Reports: Arthritis Psychiatric Medical History: Reports: Dementia, Depression Past Surgical History Past Surgical History: Reports: Appendectomy, Cardiac Catheterization, Coronary Stent - X 4 Social History Smoking Status: Former Smoker Frequency of Alcohol Use: None Hx Recreational Drug Use: No Drugs: None Hx Prescription Drug Abuse: No Family History Family History: Reviewed & Not Pertinent, CAD Parental Family History Reviewed: Yes Children Family History Reviewed: Yes Sibling(s) Family History Reviewed.: Yes Medication/Allergy Home Medications: Albuterol Sulfate [Ventolin Hfa] 2 puff IH Q4HP PRN 11/19/17 Aspirin [Aspirin 81 mg Chewable Tablet] 81 mg PO DAILY 11/19/17 Buspirone HCl [Buspar 15 mg Tablet] 7.5 mg PO BID 11/19/17 Carvedilol [Coreg 3.125 mg Tablet] 3.125 mg PO Q12 11/19/17 Clopidogrel Bisulfate [Plavix 75 mg Tablet] 75 mg PO DAILY 11/19/17 Donepezil HCl [Aricept] 10 mg PO QHS 11/19/17 Oxycodone HCl/Acetaminophen [Percocet 10-325 mg Tablet] 1 tab PO Q6HP PRN Pravastatin Sodium [Pravachol] 40 mg PO DAILY 11/19/17 Ranitidine HCl [Zantac 150 mg Tablet] 150 mg PO BID 11/19/17 Silver Sulfadiazine [Ssd] 1 applic TP DAILY 11/19/17 Valsartan [Diovan 40 mg Tablet] 40 mg PO BID 11/19/17 Allergies/Adverse Reactions: Sulfa (Sulfonamide Antibiotics) Allergy (Unknown, Verified 09/13/17 11:49) RASH Review of Systems Constitutional: ABSENT: chills, fever(s), headache(s), weight gain, weight loss Eyes: ABSENT: visual disturbances Ears: ABSENT: hearing changes Cardiovascular: PRESENT: chest pain Respiratory: ABSENT: cough, hemoptysis Gastrointestinal: ABSENT: abdominal pain, constipation, diarrhea, hematemesis, hematochezia, nausea, vomiting Genitourinary: ABSENT: dysuria, hematuria Musculoskeletal: ABSENT: joint swelling Integumentary: ABSENT: rash, wounds Neurological: ABSENT: abnormal gait, abnormal speech, confusion, dizziness, focal weakness, syncope Psychiatric: ABSENT: anxiety, depression, homidical ideation, suicidal ideation Endocrine: ABSENT: cold intolerance, heat intolerance, menstrual abnormalities, polydipsia, polyuria Hematologic/Lymphatic: ABSENT: easy bleeding, easy bruising, lymphadenopathy Physical Exam Vital Signs: Temp Pulse Resp BP Pulse Ox 97.6 F 71 18 118/67 97 11/20/17 07:58 11/20/17 07:58 11/20/17 07:58 11/20/17 07:58 11/20/17 07:58 Intake & Output 11/19/17 11/20/17 11/21/17 06:59 06:59 06:59 Intake Total 400 Output Total 275 Balance 125 Weight 79.5 kg General appearance: PRESENT: no acute distress, well-developed, well-nourished Head exam: PRESENT: atraumatic, normocephalic Eye exam: PRESENT: conjunctiva pink, EOMI, PERRLA Ear exam: PRESENT: normal external ear exam Mouth exam: PRESENT: moist, tongue midline Neck exam: PRESENT: full ROM Respiratory exam: PRESENT: clear to auscultation alicia Cardiovascular exam: PRESENT: RRR, +S1, +S2 Pulses: PRESENT: normal dorsalis pedis pul, +2 pedal pulses bilateral Vascular exam: PRESENT: normal capillary refill GI/Abdominal exam: PRESENT: normal bowel sounds, soft Rectal exam: PRESENT: deferred Neurological exam: PRESENT: alert, awake, oriented to person, oriented to place , oriented to time, oriented to situation, CN II-XII grossly intact Psychiatric exam: PRESENT: appropriate affect, normal mood Skin exam: PRESENT: dry, intact, warm. ABSENT: cyanosis, rash Results Laboratory Results: 11/19/17 11/19/17 11/19/17 17:16 18:33 18:33 Creatine Kinase 43 L CK-MB (CK-2) 0.83 Troponin I < 0.012 < 0.012 11/20/17 11/20/17 02:24 02:24 Creatine Kinase 40 L CK-MB (CK-2) 0.69 Troponin I < 0.012 Impressions: Chest X-Ray 11/19/17 13:20 IMPRESSION: NO ACUTE RADIOGRAPHIC FINDING IN THE CHEST. Assessment & Plan - Diagnosis (1) Chest pain Qualifiers: Chest pain type: unspecified Qualified Code(s): R07.9 - Chest pain, unspecified Is this a current diagnosis for this admission?: Yes Plan: Patient was admitted for observation and management (2) Coronary artery disease Qualifiers: Coronary Disease-Associated Artery/Lesion type: unspecified vessel or lesion type [place] vs. transplanted heart: [place] heart Associated angina: angina presence unspecified Qualified Code(s): I25.10 - Atherosclerotic heart disease of [place] coronary artery without angina pectoris Is this a current diagnosis for this admission?: Yes
--- NOTE | 2017-11-20 14:13 | PDOC DISCHARGE SUMMARY ---
General - Admit/Disc Date/PCP Admission Date/Primary Care Provider: 11/19/17 15:59 EMMANUEL OSUNKOYA Discharge Date: 11/20/17 - Discharge Diagnosis (1) Chest pain Is this a current diagnosis for this admission?: Yes (2) Coronary artery disease Is this a current diagnosis for this admission?: Yes - Additional Information Home Medications: Albuterol Sulfate [Ventolin Hfa] 2 puff IH Q4HP PRN 11/19/17 Aspirin [Aspirin 81 mg Chewable Tablet] 81 mg PO DAILY 11/19/17 Buspirone HCl [Buspar 15 mg Tablet] 7.5 mg PO BID 11/19/17 Carvedilol [Coreg 3.125 mg Tablet] 3.125 mg PO Q12 11/19/17 Clopidogrel Bisulfate [Plavix 75 mg Tablet] 75 mg PO DAILY 11/19/17 Donepezil HCl [Aricept] 10 mg PO QHS 11/19/17 Oxycodone HCl/Acetaminophen [Percocet 10-325 mg Tablet] 1 tab PO Q6HP PRN Pravastatin Sodium [Pravachol] 40 mg PO DAILY 11/19/17 Ranitidine HCl [Zantac 150 mg Tablet] 150 mg PO BID 11/19/17 Silver Sulfadiazine [Ssd] 1 applic TP DAILY 11/19/17 Valsartan [Diovan 40 mg Tablet] 40 mg PO BID 11/19/17 History of Present Illness History of Present Illness: JERRY PELAEZ is a 87 year old male, he has a history of coronary artery disease, he came to the emergency room for evaluation of chest pain the chest pain is atypical but because of his history of ischemic heart disease was admitted for observation, 3 sets of cardiac enzymes were done negative for acute NV Hospital Course Hospital Course: He was admitted for observation, 3 sets of enzymes were negative for acute NV, he left AMA before care was complete Physical Exam Vital Signs: Temp Pulse Resp BP Pulse Ox 97.6 F 71 18 118/67 97 11/20/17 07:58 11/20/17 07:58 11/20/17 07:58 11/20/17 07:58 11/20/17 07:58 Intake & Output 11/19/17 11/20/17 11/21/17 06:59 06:59 06:59 Intake Total 400 Output Total 275 Balance 125 Weight 79.5 kg General appearance: PRESENT: no acute distress Respiratory exam: PRESENT: clear to auscultation alicia Cardiovascular exam: PRESENT: +S1, +S2 Neurological exam: PRESENT: alert Results Laboratory Results: 11/19/17 11/19/17 11/19/17 17:16 18:33 18:33 Creatine Kinase 43 L CK-MB (CK-2) 0.83 Troponin I < 0.012 < 0.012 11/20/17 11/20/17 02:24 02:24 Creatine Kinase 40 L CK-MB (CK-2) 0.69 Troponin I < 0.012 Impressions: Chest X-Ray 11/19/17 13:20 IMPRESSION: NO ACUTE RADIOGRAPHIC FINDING IN THE CHEST. Qualifiers - * PATEINT BEING DISCHARGED WITH ANY OF THE FOLLOWING DIAGNOSIS?: No Plan Discharge Plan: Patient left AMA before care was complete
== END 2017-11-20 08:55 | disposition left against medical advice (07) ==
LOC: ER 11:47 → EH 15:59 → 5 20:38
PROVIDERS: ADMIT Internal Medicine; ATTEND Internal Medicine
DX: R07.89 Other chest pain (principal); I25.10 Atherosclerotic heart disease of native coronary artery without angina pectoris; Z53.21 Procedure and treatment not carried out due to patient leaving prior to being seen by health care provider; F03.90 Unspecified dementia, unspecified severity, without behavioral disturbance, psychotic disturbance, mood disturbance, and anxiety; K21.9 Gastro-esophageal reflux disease without esophagitis; E78.5 Hyperlipidemia, unspecified; I10 Essential (primary) hypertension; J45.909 Unspecified asthma, uncomplicated; I25.2 Old myocardial infarction; I69.954 Hemiplegia and hemiparesis following unspecified cerebrovascular disease affecting left non-dominant side; Z79.899 Other long term (current) drug therapy; Z79.02 Long term (current) use of antithrombotics/antiplatelets; Z79.82 Long term (current) use of aspirin; Z85.528 Personal history of other malignant neoplasm of kidney; Z95.5 Presence of coronary angioplasty implant and graft; Z90.49 Acquired absence of other specified parts of digestive tract; Z87.891 Personal history of nicotine dependence; Z82.49 Family history of ischemic heart disease and other diseases of the circulatory system
CPT/HCPCS: 93005; 99285; 36415 ×2; 82553 ×2; 82550 ×2; 85025; 80053; 84484 ×2; 71045; 93010; G0378 ×3; A9270 ×7

== ENCOUNTER 2017-12-01 11:13 | Emergency (ER) | payer MEDICARE, MEDICAID ==
--- NOTE | 2017-12-01 12:16 | ER Document Report ---
ED Medical Screen (RME) - General Chief Complaint: Constipation Stated Complaint: CONSTIPATED Time Seen by Provider: 12/01/17 12:13 Notes: Patient says that he is been constipated and not had a bowel movement for a couple of days. He tried to go this morning and was straining when he felt pains in his chest. He did have some chest pressure and discomfort during the night. Says he is also unable to pass his urine. Has home O2 if he needs it, but has not felt short of breath. History of coronary stents. TRAVEL OUTSIDE OF THE [place] IN LAST 30 DAYS: No - Related Data Allergies/Adverse Reactions: Sulfa (Sulfonamide Antibiotics) Allergy (Unknown, Verified 12/01/17 11:13) RASH Past Medical History - Social History Chew tobacco use (# tins/day): No Frequency of alcohol use: quit 5 yrs ago Drug Abuse: None - Past Medical History Cardiac Medical History: Reports: Hx Coronary Artery Disease, Hx Heart Attack - x4, Hx Hypercholesterolemia, Hx Hypertension Denies: Hx Atrial Fibrillation, Hx Congestive Heart Failure, Hx Peripheral Vascular Disease, Hx Pulmonary Embolism, Hx Heart Murmur Pulmonary Medical History: Reports: Hx Asthma, Hx Bronchitis, Hx Pneumonia Denies: Hx COPD, Hx Respiratory Failure, Hx Sleep Apnea, Hx Tuberculosis Neurological Medical History: Reports: Hx Cerebrovascular Accident - L SIDE WEAKNESS. Denies: Hx Seizures Endocrine Medical History: Denies: Hx Graves' Disease, Hx Hyperthyroidism, Hx Hypothyroidism Renal/ Medical History: Denies: Hx Benign Prostatic Hyperplasia, Hx End Stage Renal Disease, Hx Kidney Stones, Hx Peritoneal Dialysis Malignancy Medical History: Denies Hx Leukemia, Denies Hx Lung Cancer, Reports Hx Renal (Kidney) Cancer GI Medical History: Reports: Hx Gastroesophageal Reflux Disease, Hx Hepatitis. Denies: Hx Crohn's Disease, Hx Hiatal Hernia, Hx Irritable Bowel, Hx Liver Failure, Hx Pancreatitis, Hx Ulcer Musculoskeltal Medical History: Reports Hx Arthritis, Denies Hx Fibromyalgia, Denies Hx Multiple Sclerosis, Denies Hx Muscular Dystrophy Skin Medical History: Reports Hx MRSA Psychiatric Medical History: Reports: Hx Anxiety, Hx Dementia, Hx Depression Denies: Hx Bipolar Disorder, Hx Post Traumatic Stress Disorder, Hx Schizophrenia Traumatic Medical History: Reports: Hx Fractures Infectious Medical History: Reports: Hx Hepatitis. Denies: Hx HIV Past Surgical History: Reports: Hx Abdominal Surgery, Hx Appendectomy, Hx Cardiac Catheterization, Hx Cardiac Surgery - x4, Hx Coronary Stent - X 4. Denies: Hx Bowel Surgery, Hx Cholecystectomy, Hx Colostomy, Hx Coronary Artery Bypass Graft, Hx Gastric Bypass Surgery, Hx Herniorrhaphy, Hx Open Heart Surgery , Hx Pacemaker, Hx Tonsillectomy - Immunizations Immunizations up to date: Yes Hx Diphtheria, Pertussis, Tetanus Vaccination: No History of Influenza Vaccine for 05/2017 - 10/2017 Season: Yes Influenza Administration Date for 05/2017 - 10/2017 Season: 07/17/17 Physical Exam - Vital signs Vitals: Temp Pulse Resp BP Pulse Ox 98.0 F 76 18 137/76 H 97 12/01/17 11:21 12/01/17 11:21 12/01/17 11:21 12/01/17 11:21 12/01/17 11:21 Course - Vital Signs Vital signs: Temp Pulse Resp BP Pulse Ox 98.0 F 76 18 137/76 H 97 12/01/17 11:21 12/01/17 11:21 12/01/17 11:21 12/01/17 11:21 12/01/17 11:21 Doctor's Discharge - Discharge Referrals: STEVEN PÉREZ MD [Primary Care Provider] - Follow up as needed
[2017-12-01 12:42] LABS: ABSOLUTE BASOPHILS # (AUTO) 0.1 10^3/uL (0.0-0.2); ABSOLUTE EOSINOPHILS # (AUTO) 0.3 10^3/uL (0.0-0.6); ABSOLUTE LYMPHOCYTES (AUTO) 1.9 10^3/uL (0.5-4.7); ABSOLUTE MONOCYTES (AUTO) 0.7 10^3/uL (0.1-1.4); ABSOLUTE NEUT (AUTO) 6.5 10^3/uL (1.7-8.2); BASOPHILS % (AUTO) 0.9 % (0-2); EOSINOPHILS % (AUTO) 3.3 % (0-6); HEMATOCRIT 47.8 % (37.9-51.0); HEMOGLOBIN 16.6 g/dL (13.5-17.0); LYMPHOCYTES % (AUTO) 19.9 % (13-45); MEAN CORPUSCULAR HEMOGLOBIN 31.3 pg (27.0-33.4); MEAN CORPUSCULAR HGB CONC 34.7 g/dL (32.0-36.0); MEAN CORPUSCULAR VOLUME 90 fl (80-97); PLATELET COUNT 318 10^3/uL (150-450); RED BLOOD COUNT 5.29 10^6/uL (4.35-5.55); RED CELL DISTRIBUTION WIDTH 14.1 % (11.5-14.0); SEGMENTED NEUTROPHILS % (AUTO) 68.9 % (42-78); TOTAL CELLS COUNTED % (AUTO) 100 %; WHITE BLOOD COUNT 9.4 10^3/uL (4.0-10.5)
--- NOTE | 2017-12-01 13:02 | RADIOLOGY REPORT (SQ) ---
EXAM DESCRIPTION: ABDOMEN 2 VIEWS COMPLETED DATE/TIME: 12/01/2017 12:43 pm REASON FOR STUDY: Constipated? COMPARISON: None. NUMBER OF VIEWS: Two views. TECHNIQUE: Supine and erect/decubitus radiographic images of the abdomen acquired. LIMITATIONS: None. FINDINGS: FREE AIR: None. No abnormal gas collections. LUNG BASES: Clear. BOWEL GAS PATTERN: Nonobstructive pattern. No dilated loops or air fluid levels. CALCIFICATIONS: No suspicious calcifications. SOFT TISSUES: No gross mass or suggestion of organomegaly. HARDWARE: None in the abdomen. BONES: No acute fracture. No worrisome bone lesions. OTHER: No other significant finding. IMPRESSION: NO RADIOGRAPHIC EVIDENCE FOR ACUTE ABDOMINAL DISEASE. TECHNICAL DOCUMENTATION: JOB ID: [id number] [employer]- All Rights Reserved Reading location - IP/workstation name: [email or web address]
[2017-12-01 13:03] LABS: ALANINE AMINOTRANSFERASE 29 U/L (21-72); ALBUMIN 4.7 g/dL (3.5-5.0); ALKALINE PHOSPHATASE 108 U/L (38-126); ANION GAP 16 (5-19); ASPARTATE AMINO TRANSFERASE 33 U/L (17-59); BILIRUBIN,DIRECT 0.4 mg/dL (0.0-0.4); BLOOD UREA NITROGEN 11 mg/dL (7-20); CALCIUM 9.9 mg/dL (8.4-10.2); CARBON DIOXIDE 27 mmol/L (22-30); CHLORIDE 100 mmol/L (98-107); GLUCOSE 124 mg/dL (75-110); LIPASE 88.4 U/L (23-300); POTASSIUM 4.6 mmol/L (3.6-5.0); SODIUM 142.7 mmol/L (137-145); TOTAL PROTEIN 8.4 g/dL (6.3-8.2)
[2017-12-01 13:12] LABS: CREATINE KINASE MB 1.33 ng/mL (<4.55)
[2017-12-01 13:14] LABS: TROPONIN I < 0.012 ng/mL
[2017-12-01] MEDS ORDERED: LACTULOSE SYRUP 20 GM/30 ML UDCUP PO ONE (13:44)
[2017-12-01] MEDS ORDERED: BISACODYL 5 MG TABEC PO ONE (13:45)
[2017-12-01 15:25] LABS: APPEARANCE,URINE CLEAR; BILIRUBIN,URINE NEGATIVE (NEGATIVE); COLOR,URINE YELLOW; GLUCOSE, URINE NEGATIVE (NEGATIVE); KETONES,URINE NEGATIVE (NEGATIVE); LEUKOCYTE ESTERASE,URINE NEGATIVE (NEGATIVE); NITRITE,URINE NEGATIVE (NEGATIVE); PROTEIN,URINE NEGATIVE (NEGATIVE); URINE SPECIFIC GRAVITY 1.009; UROBILINOGEN,URINE NEGATIVE mg/dL (<2.0)
--- NOTE | 2017-12-01 15:47 | ER Document Report ---
ED GI/ - General Chief Complaint: Constipation Stated Complaint: CONSTIPATED Time Seen by Provider: 12/01/17 12:13 Notes: 87-year-old male to the emergency department chief complaint of constipation. States that he has been unable to have a bowel movement today. Family members are present. States that he has dementia. Constantly has constipation. Had something like this happen once before but ended up having a heart attacks and gets really scared that he is having something more serious. States that he could not be in good and improved. TRAVEL OUTSIDE OF THE [place] IN LAST 30 DAYS: No - HPI Patient complains to provider of: Other - Obstipation. No: Abdominal pain - Related Data Allergies/Adverse Reactions: Sulfa (Sulfonamide Antibiotics) Allergy (Unknown, Verified 12/01/17 11:13) RASH Past Medical History - General Information source: Patient, [facility] Records Cannot obtain history due to: Dementia - Social History Smoking Status: Former Smoker Chew tobacco use (# tins/day): No Frequency of alcohol use: quit 5 yrs ago Drug Abuse: None Lives with: Family Family History: Reviewed & Not Pertinent, CAD Patient has suicidal ideation: No Patient has homicidal ideation: No - Past Medical History Cardiac Medical History: Reports: Hx Coronary Artery Disease, Hx Heart Attack - x4, Hx Hypercholesterolemia, Hx Hypertension Denies: Hx Atrial Fibrillation, Hx Congestive Heart Failure, Hx Peripheral Vascular Disease, Hx Pulmonary Embolism, Hx Heart Murmur Pulmonary Medical History: Reports: Hx Asthma, Hx Bronchitis, Hx Pneumonia Denies: Hx COPD, Hx Respiratory Failure, Hx Sleep Apnea, Hx Tuberculosis Neurological Medical History: Reports: Hx Cerebrovascular Accident - L SIDE WEAKNESS. Denies: Hx Seizures Endocrine Medical History: Denies: Hx Graves' Disease, Hx Hyperthyroidism, Hx Hypothyroidism Renal/ Medical History: Denies: Hx Benign Prostatic Hyperplasia, Hx End Stage Renal Disease, Hx Kidney Stones, Hx Peritoneal Dialysis Malignancy Medical History: Denies Hx Leukemia, Denies Hx Lung Cancer, Reports Hx Renal (Kidney) Cancer GI Medical History: Reports: Hx Gastroesophageal Reflux Disease, Hx Hepatitis. Denies: Hx Crohn's Disease, Hx Hiatal Hernia, Hx Irritable Bowel, Hx Liver Failure, Hx Pancreatitis, Hx Ulcer Musculoskeltal Medical History: Reports Hx Arthritis, Denies Hx Fibromyalgia, Denies Hx Multiple Sclerosis, Denies Hx Muscular Dystrophy Skin Medical History: Reports Hx MRSA Psychiatric Medical History: Reports: Hx Anxiety, Hx Dementia, Hx Depression Denies: Hx Bipolar Disorder, Hx Post Traumatic Stress Disorder, Hx Schizophrenia Traumatic Medical History: Reports: Hx Fractures Infectious Medical History: Reports: Hx Hepatitis. Denies: Hx HIV Past Surgical History: Reports: Hx Abdominal Surgery, Hx Appendectomy, Hx Cardiac Catheterization, Hx Cardiac Surgery - x4, Hx Coronary Stent - X 4. Denies: Hx Bowel Surgery, Hx Cholecystectomy, Hx Colostomy, Hx Coronary Artery Bypass Graft, Hx Gastric Bypass Surgery, Hx Herniorrhaphy, Hx Open Heart Surgery , Hx Pacemaker, Hx Tonsillectomy - Immunizations Immunizations up to date: Yes Hx Diphtheria, Pertussis, Tetanus Vaccination: No Hx Pneumococcal Vaccination: 08/05/10 Review of Systems - Review of Systems Constitutional: No symptoms reported EENT: No symptoms reported Cardiovascular: No symptoms reported Respiratory: No symptoms reported Gastrointestinal: See HPI, Constipation Genitourinary: No symptoms reported, See HPI, Retention. denies: Burning, Dysuria Male Genitourinary: No symptoms reported Musculoskeletal: No symptoms reported Skin: No symptoms reported Hematologic/Lymphatic: No symptoms reported Neurological/Psychological: No symptoms reported Physical Exam - Vital signs Vitals: Temp Pulse Resp BP Pulse Ox 98.0 F 76 18 137/76 H 97 12/01/17 11:21 12/01/17 11:21 12/01/17 11:21 12/01/17 11:21 12/01/17 11:21 Interpretation: Normal - General General appearance: Appears well, Alert - HEENT Head: Normocephalic, Atraumatic Eyes: Normal Pupils: PERRL - Respiratory Respiratory status: No respiratory distress Chest status: Nontender Breath sounds: Normal Chest palpation: Normal - Cardiovascular Rhythm: Regular Heart sounds: Normal auscultation Murmur: No - Abdominal Inspection: Normal Distension: No distension Bowel sounds: Normal Tenderness: Nontender Organomegaly: No organomegaly - Back Back: Normal, Nontender - Extremities General upper extremity: Normal inspection, Nontender, Normal color, Normal ROM , Normal temperature General lower extremity: Normal inspection, Nontender, Normal color, Normal ROM , Normal temperature, Normal weight bearing. No: Ne's sign - Neurological Neuro grossly intact: Yes Cognition: Normal Orientation: AAOx4 [place] Coma Scale Eye Opening: Spontaneous [place] Coma Scale Verbal: Oriented [place] Coma Scale Motor: Obeys Commands [place] Coma Scale Total: 15 Speech: Normal Motor strength normal: LUE, RUE, LLE, RLE Sensory: Normal - Psychological Associated symptoms: Normal affect, Normal mood - Skin Skin Temperature: Warm Skin Moisture: Dry Skin Color: Normal Course - Re-evaluation Re-evalutation: 12/01/17 15:44 Well-appearing male in no acute distress. Labs unremarkable. X-ray unremarkable. EKG with no acute signs of ischemia. EKG unchanged from prior. Patient received lactulose and bisacodyl. Had a large bowel movement. States that he feels "100% better. Denies any abdominal pain, chest pain, shortness of breath or other issues. Labs are normal. Family members are here. Comfortable at this time discharging - Vital Signs Vital signs: Temp Pulse Resp BP Pulse Ox 98.0 F 76 18 137/76 H 97 12/01/17 11:21 12/01/17 11:21 12/01/17 11:21 12/01/17 11:21 12/01/17 11:21 - Laboratory Result Diagrams: 12/01/17 12:26 12/01/17 12:26 Laboratory results interpreted by me: 12/01/17 12/01/17 12:26 12:26 RDW 14.1 H Glucose 124 H Total Protein 8.4 H - EKG Interpretation by In EKG shows normal: Sinus rhythm, [place], Intervals, QRS Complexes, ST-T Waves When compared to previous EKG there are: No significant change Discharge - Discharge Clinical Impression: Constipation Qualifiers: Constipation type: unspecified constipation type Qualified Code(s): K59.00 - Constipation, unspecified Condition: Good Disposition: HOME, SELF-CARE Instructions: Constipation ([facility]) Referrals: STEVEN PÉREZ MD [Primary Care Provider] - Follow up as needed
[2017-12-01 15:57] VITALS: BP 122/78
--- NOTE | 2017-12-01 17:57 | EKG REPORT ---
SEVERITY:- ABNORMAL ECG - SINUS RHYTHM CONSIDER POSTERIOR INFARCT : Confirmed by: Jeffrey Fair MD 01-Dec-2017 17:57:27
== END 2017-12-01 15:57 | disposition home or self-care (01) ==
LOC: ER 11:13
DX: K59.00 Constipation, unspecified (principal); F03.90 Unspecified dementia, unspecified severity, without behavioral disturbance, psychotic disturbance, mood disturbance, and anxiety; Z87.891 Personal history of nicotine dependence; I25.10 Atherosclerotic heart disease of native coronary artery without angina pectoris; I10 Essential (primary) hypertension; J45.909 Unspecified asthma, uncomplicated
CPT/HCPCS: 93005; 99284; 36415; 82553; 83690; 85025; 80053; 81001; 84484; 74019; 93010; A9270 ×2

== ENCOUNTER 2018-01-10 10:05 | Emergency (ER) | payer MEDICARE, MEDICAID ==
--- NOTE | 2018-01-10 11:20 | RADIOLOGY REPORT (SQ) ---
EXAM DESCRIPTION: CT HEAD WITHOUT COMPLETED DATE/TIME: 01/10/2018 11:03 am REASON FOR STUDY: headache COMPARISON: 06/30/2015 TECHNIQUE: Axial images acquired through the brain without intravenous contrast. Images reviewed wi th bone, brain and subdural windows. Additional sagittal and coronal reconstructions were generated. Images stored on PACS. All CT scanners at this facility use dose modulation, iterative reconstruction, and/or weight based d osing when appropriate to reduce radiation dose to as low as reasonably achievable (ALARA). [facility]: Dose Right [facility]: CareDose [facility]: Dose Right [facility]: Teradose 4D [facility]: Smart [employer] RADIATION DOSE: CT Rad equipment meets quality standard of care and radiation dose reduction techniq ues were employed. CTDIvol: 53.2 mGy. DLP: 991 mGy-cm. mGy. LIMITATIONS: None. FINDINGS: VENTRICLES: Normal size and contour. CEREBRUM: Mild cortical atrophy. No masses. No hemorrhage. No midline shift. No evidence for acut e infarction. Small areas of low density in the white matter most likely chronic small vessel ischemi c changes. CEREBELLUM: No masses. No hemorrhage. No alteration of density. No evidence for acute infarction. EXTRAAXIAL SPACES: No fluid collections. No masses. ORBITS AND GLOBE: No intra- or extraconal masses. Normal contour of globe without masses. CALVARIUM: No fracture. PARANASAL SINUSES: No fluid or mucosal thickening. SOFT TISSUES: No mass or hematoma. OTHER: No other significant finding. IMPRESSION: MILD CHRONIC MICROVASCULAR ISCHEMIA. NO ACUTE IMAGING FINDINGS IN THE BRAIN. EVIDENCE OF ACUTE STROKE: NO. COMMENT: Quality ID # [id number]: Final reports with documentation of one or more dose reduction techniques (e.g., Automated exposure control, adjustment of the mA and/or kV according to patient size, use of iterative reconstruction technique) TECHNICAL DOCUMENTATION: JOB ID: [id number]- All Rights Reserved Reading location - IP/workstation name: [email or web address]
--- NOTE | 2018-01-10 11:30 | ER Document Report ---
ED General - General Chief Complaint: Headache Stated Complaint: LEFT SIDE HEAD PAIN Time Seen by Provider: 01/10/18 10:13 Mode of Arrival: Ambulatory Information source: Patient Notes: 87-year-old male presents with complaints of a pop sensation on the left side of his face a few days prior associated with pain when he chews. Patient denies any trauma, denies any weakness. Patient can pinpoint where it hurts on his face TRAVEL OUTSIDE OF THE [place] IN LAST 30 DAYS: No - HPI Onset: Other - 2 day duration Onset/Duration: Persistent, Waxing and waning Quality of pain: Sharp Severity: Mild Pain Level: 1 Associated symptoms: Other Exacerbated by: Denies Relieved by: Denies Similar symptoms previously: No Recently seen / treated by doctor: No - Related Data Allergies/Adverse Reactions: Sulfa (Sulfonamide Antibiotics) Allergy (Unknown, Verified 01/10/18 10:08) RASH Past Medical History - Social History Smoking Status: Never Smoker Cigarette use (# per day): No Chew tobacco use (# tins/day): No Smoking Education Provided: No Family History: Reviewed & Not Pertinent, CAD Patient has suicidal ideation: No Patient has homicidal ideation: No - Past Medical History Cardiac Medical History: Reports: Hx Coronary Artery Disease, Hx Heart Attack - x4, Hx Hypercholesterolemia, Hx Hypertension Denies: Hx Atrial Fibrillation, Hx Congestive Heart Failure, Hx Peripheral Vascular Disease, Hx Pulmonary Embolism, Hx Heart Murmur Pulmonary Medical History: Reports: Hx Asthma, Hx Bronchitis, Hx Pneumonia Denies: Hx COPD, Hx Respiratory Failure, Hx Sleep Apnea, Hx Tuberculosis Neurological Medical History: Reports: Hx Cerebrovascular Accident - L SIDE WEAKNESS. Denies: Hx Seizures Endocrine Medical History: Denies: Hx Graves' Disease, Hx Hyperthyroidism, Hx Hypothyroidism Renal/ Medical History: Denies: Hx Benign Prostatic Hyperplasia, Hx End Stage Renal Disease, Hx Kidney Stones, Hx Peritoneal Dialysis Malignancy Medical History: Denies Hx Leukemia, Denies Hx Lung Cancer, Reports Hx Renal (Kidney) Cancer GI Medical History: Reports: Hx Gastroesophageal Reflux Disease, Hx Hepatitis. Denies: Hx Crohn's Disease, Hx Hiatal Hernia, Hx Irritable Bowel, Hx Liver Failure, Hx Pancreatitis, Hx Ulcer Musculoskeltal Medical History: Reports Hx Arthritis, Denies Hx Fibromyalgia, Denies Hx Multiple Sclerosis, Denies Hx Muscular Dystrophy Skin Medical History: Reports Hx MRSA Psychiatric Medical History: Reports: Hx Anxiety, Hx Dementia, Hx Depression Denies: Hx Bipolar Disorder, Hx Post Traumatic Stress Disorder, Hx Schizophrenia Traumatic Medical History: Reports: Hx Fractures Infectious Medical History: Reports: Hx Hepatitis. Denies: Hx HIV Past Surgical History: Reports: Hx Abdominal Surgery, Hx Appendectomy, Hx Cardiac Catheterization, Hx Cardiac Surgery - x4, Hx Coronary Stent - X 4. Denies: Hx Bowel Surgery, Hx Cholecystectomy, Hx Colostomy, Hx Coronary Artery Bypass Graft, Hx Gastric Bypass Surgery, Hx Herniorrhaphy, Hx Open Heart Surgery , Hx Pacemaker, Hx Tonsillectomy - Immunizations Immunizations up to date: Yes Hx Diphtheria, Pertussis, Tetanus Vaccination: No Hx Pneumococcal Vaccination: 08/05/10 Review of Systems - Review of Systems Notes: REVIEW OF SYSTEMS: CONSTITUTIONAL : Denies fever, chills, or sweats. Denies recent illness. EENT: Left facial pain CARDIOVASCULAR: Denies chest pain. Denies palpitations or racing or irregular heart beat. Denies ankle edema. RESPIRATORY: Denies cough, cold, or chest congestion. Denies shortness of breath, difficulty breathing, or wheezing. GASTROINTESTINAL: Denies abdominal pain or distention. Denies nausea, vomiting , or diarrhea. Denies blood in vomitus, stools, or per rectum. Denies black, tarry stools. Denies constipation. GENITOURINARY: Denies difficulty urinating, painful urination, burning, frequency, blood in urine, or discharge. MUSCULOSKELETAL: Denies back or neck pain or stiffness. Denies joint pain or swelling. SKIN: Denies rash, lesions or sores. HEMATOLOGIC : Denies easy bruising or bleeding. LYMPHATIC: Denies swollen, enlarged glands. NEUROLOGICAL: Denies confusion or altered mental status. Denies passing out or loss of consciousness. Denies dizziness or lightheadedness. Denies headache. Denies weakness or paralysis or loss of use of either side. Denies problems with gait or speech. Denies sensory loss, numbness, or tingling. Denies seizures. PSYCHIATRIC: Denies anxiety or stress. Denies depression, suicidal ideation, or homicidal ideation. ALL OTHER SYSTEMS REVIEWED AND NEGATIVE. Dictation was performed using [employer] voice recognition software PHYSICAL EXAMINATION: GENERAL: Well-appearing, well-nourished and in no acute distress. HEAD: Atraumatic, normocephalic. EYES: Pupils equal round and reactive to light, extraocular movements intact, sclera anicteric, conjunctiva are normal. ENT: Nares patent, oropharynx clear without exudates. Moist mucous membranes. Tenderness of the left TMJ worsened with movement NECK: Normal range of motion, supple without lymphadenopathy LUNGS: Breath sounds clear to auscultation bilaterally and equal. No wheezes rales or rhonchi. HEART: Regular rate and rhythm without murmurs ABDOMEN: Soft, nontender, nondistended abdomen. No guarding, no rebound. No masses appreciated. Musculoskeletal: Normal range of motion, no pitting or edema. No cyanosis. NEUROLOGICAL: Cranial nerves grossly intact. Normal speech, normal gait. Normal sensory, motor exams PSYCH: Normal mood, normal affect. SKIN: Warm, Dry, normal turgor, no rashes or lesions noted. Physical Exam - Vital signs Vitals: Temp Pulse Resp BP Pulse Ox 98.1 F 81 20 143/72 H 97 01/10/18 10:01/10/18 10:01/10/18 10:01/10/18 10:01/10/18 10:14 Course - Re-evaluation Re-evalutation: 01/10/18 11:30 Patient's presentation most consistent with tenderness of the TMJ, patient has no neurological deficits his pain is easily reproducible with opening of his mouth and palpation, CT of the head noted no acute abnormality, patient looks well will be given ENT follow-up for this After performing a Medical Screening Examination, I estimate there is LOW risk for INTRACRANIAL HEMORRHAGE, ISCHEMIC CVA, MALIGNANT DYSRHYTHMIA, ACUTE CORONARY SYNDROME, MENINGITIS, PULMONARY EMBOLISM, or SEPSIS thus I consider the discharge disposition reasonable. I have reevaluated this patient multiple times and no significant life threatening changes are noted. The patient and I have discussed the diagnosis and risks, and we agree with discharging home with close follow-up with the understanding that symptoms and presentations can change. We also discussed returning to the Emergency Department immediately if new or worsening symptoms occur. We have discussed the symptoms which are most concerning (e.g., changing or worsening pain, weakness, vomiting, fever) that necessitate immediate return. - Vital Signs Vital signs: Temp Pulse Resp BP Pulse Ox 98.1 F 81 20 143/72 H 97 01/10/18 10:14 01/10/18 10:14 01/10/18 10:14 01/10/18 10:14 01/10/18 10:14 - Diagnostic Test Radiology reviewed: Image reviewed - CT head without contrast notes no acute abnormality, Reports reviewed Discharge - Discharge Clinical Impression: TMJ pain dysfunction syndrome Condition: Stable Disposition: HOME, SELF-CARE Instructions: Temporomandibular Joint Injury ([facility]), Temporomandibular Joint Syndrome ([facility]) Referrals: STEVEN PÉREZ MD [Primary Care Provider] - Follow up as needed RUTHY VARGAS DO [ASSOCIATE] - Follow up tomorrow
[2018-01-10] MEDS ORDERED: IBUPROFEN 800 MG TABLET PO ONE (11:35)
[2018-01-10 12:06] VITALS: BP 152/98
== END 2018-01-10 11:50 | disposition home or self-care (01) ==
LOC: ER 10:05
DX: M26.602 Left temporomandibular joint disorder, unspecified (principal); R51 Headache; Z88.2 Allergy status to sulfonamides; Z86.14 Personal history of Methicillin resistant Staphylococcus aureus infection
CPT/HCPCS: 99284; 70450; A9270

== ENCOUNTER 2018-01-13 00:33 | Emergency (ER) | payer MEDICARE, MEDICAID ==
[2018-01-13] MEDS ORDERED: ONDANSETRON 4 MG TAB.RAPDIS ONE (00:40)
[2018-01-13 00:46] VITALS: BP 105/78
[2018-01-13] MEDS ORDERED: METOCLOPRAMIDE HCL INJ/PF 10 MG/2 ML SDV IV ONE (00:52)
[2018-01-13] MEDS ORDERED: RINGERS SOLUTION,LACTATED 500 ML IV ONE (00:52)
[2018-01-13] MEDS ORDERED: DOCUSATE SODIUM 100 MG CAPSULE RT_EAR ONE (00:53)
--- NOTE | 2018-01-13 00:55 | ER Document Report ---
ED General - General Chief Complaint: Ear Pain Stated Complaint: EAR PAIN Time Seen by Provider: 01/13/18 00:38 Notes: Patient is an 87 year old male with history of dementia, hyperlipidemia, who presents with an episode tonight which he states he woke up and felt like he could not see or hear. He states he felt very dizzy or lightheaded with this episode. EMS was contacted and he was subtotally brought to the emergency department. At time of arrival the patient notes that he feels nauseated but denies any ongoing additional symptoms. He notes that he has been having episodes of lightheadedness and dizziness for months and has been seen on several occasions for without resolution. Nothing seemed to improve or worsen his symptoms are present. He denies any focal areas of weakness or numbness. He denies any chest pain or shortness of breath. No headache. He does note fullness and decreased hearing in his right ear which has been present for several months. He has not seen his general doctor regarding today's concerns. TRAVEL OUTSIDE OF THE [place] IN LAST 30 DAYS: No - Related Data Allergies/Adverse Reactions: Sulfa (Sulfonamide Antibiotics) Allergy (Unknown, Verified 01/13/18 03:08) RASH Past Medical History - General Information source: Patient - Social History Smoking Status: Never Smoker Frequency of alcohol use: None Drug Abuse: None Lives with: Family Family History: Reviewed & Not Pertinent, CAD Patient has suicidal ideation: No Patient has homicidal ideation: No - Past Medical History Cardiac Medical History: Reports: Hx Coronary Artery Disease, Hx Heart Attack - x4, Hx Hypercholesterolemia, Hx Hypertension Denies: Hx Atrial Fibrillation, Hx Congestive Heart Failure, Hx Peripheral Vascular Disease, Hx Pulmonary Embolism, Hx Heart Murmur Pulmonary Medical History: Reports: Hx Asthma, Hx Bronchitis, Hx Pneumonia Denies: Hx COPD, Hx Respiratory Failure, Hx Sleep Apnea, Hx Tuberculosis Neurological Medical History: Reports: Hx Cerebrovascular Accident - L SIDE WEAKNESS. Denies: Hx Seizures Endocrine Medical History: Denies: Hx Graves' Disease, Hx Hyperthyroidism, Hx Hypothyroidism Renal/ Medical History: Denies: Hx Benign Prostatic Hyperplasia, Hx End Stage Renal Disease, Hx Kidney Stones, Hx Peritoneal Dialysis Malignancy Medical History: Denies Hx Leukemia, Denies Hx Lung Cancer, Reports Hx Renal (Kidney) Cancer GI Medical History: Reports: Hx Gastroesophageal Reflux Disease, Hx Hepatitis. Denies: Hx Crohn's Disease, Hx Hiatal Hernia, Hx Irritable Bowel, Hx Liver Failure, Hx Pancreatitis, Hx Ulcer Musculoskeltal Medical History: Reports Hx Arthritis, Denies Hx Fibromyalgia, Denies Hx Multiple Sclerosis, Denies Hx Muscular Dystrophy Skin Medical History: Reports Hx MRSA Psychiatric Medical History: Reports: Hx Anxiety, Hx Dementia, Hx Depression Denies: Hx Bipolar Disorder, Hx Post Traumatic Stress Disorder, Hx Schizophrenia Traumatic Medical History: Reports: Hx Fractures Infectious Medical History: Reports: Hx Hepatitis. Denies: Hx HIV Past Surgical History: Reports: Hx Abdominal Surgery, Hx Appendectomy, Hx Cardiac Catheterization, Hx Cardiac Surgery - x4, Hx Coronary Stent - X 4. Denies: Hx Bowel Surgery, Hx Cholecystectomy, Hx Colostomy, Hx Coronary Artery Bypass Graft, Hx Gastric Bypass Surgery, Hx Herniorrhaphy, Hx Open Heart Surgery , Hx Pacemaker, Hx Tonsillectomy - Immunizations Immunizations up to date: Yes Hx Diphtheria, Pertussis, Tetanus Vaccination: No Hx Pneumococcal Vaccination: 08/05/10 Review of Systems - Review of Systems Notes: Constitutional: Negative for fever. HENT: Positive for right ear fullness and pain. Eyes: Negative for visual changes. Cardiovascular: Negative for chest pain. Respiratory: Negative for shortness of breath. Gastrointestinal: Negative for abdominal pain, positive for nausea and vomiting Genitourinary: Negative for dysuria. Musculoskeletal: Negative for back pain. Skin: Negative for rash. Neurological: Negative for headaches, weakness or numbness. 10 point ROS negative except as marked above and in HPI. Physical Exam - Vital signs Vitals: Temp Pulse Resp BP Pulse Ox 98.1 F 91 18 105/78 98 01/13/18 00:39 01/13/18 00:39 01/13/18 00:39 01/13/18 00:39 01/13/18 00:39 Interpretation: Normal Notes: PHYSICAL EXAMINATION: GENERAL: Well-appearing, well-nourished and in no acute distress. HEAD: Atraumatic, normocephalic. EYES: Pupils equal round and reactive to light, extraocular movements intact, sclera anicteric, conjunctiva are normal. ENT: nares patent, oropharynx clear without exudates. Moderately dry mucous membranes. Extensive impaction of cerumen on the right ear. Left TM clear. NECK: Normal range of motion, supple without lymphadenopathy LUNGS: Breath sounds clear to auscultation bilaterally and equal. No wheezes rales or rhonchi. HEART: Regular rate and rhythm without murmurs ABDOMEN: Soft, nontender, normoactive bowel sounds. No guarding, no rebound. No masses appreciated. EXTREMITIES: no pitting or edema. No cyanosis. NEUROLOGICAL: Face symmetric. Tongue protrudes midline. Extraocular motions intact. Pupils are 2 mm and equally reactive. Normal speech, gait deferred as patient is nonambulatory at baseline. 5 out of 5 strength in both the distal and proximal upper and lower extremities bilaterally. Sensation is grossly intact throughout. Finger to nose testing normal. Pronator drift normal. PSYCH: Mildly anxious otherwise alert and oriented SKIN: Warm, Dry, normal turgor, no rashes or lesions noted. Course - Re-evaluation Re-evalutation: 01/13/18 00:54 Patient presents with an episode after he woke up states that he felt like he could not see, move, or hear, had associated panic with this. At time of evaluation he is having nausea without vomiting although is dry heaving. The patient does not have any focal neurologic deficits on examination, clinical history and exam not consistent with acute TIA or stroke. He is complaining of severe right ear pain. Otoscopic examination shows impacted cerumen which was extracted. We will also irrigate the ear after instilling colchicine into the ear. Will also obtain basic laboratories given the patient is actively dry heaving and provide IV metoclopramide and IV fluids. Will also obtain basic labs and CT of the head given his report of some confusion earlier in his clinical course. 01/13/18 02:30 CT the head is unremarkable. CBC unremarkable, CMP and troponin are hemolyzed and I am awaiting a redraw. Patient feels much better after having his ear irrigated on the right side. Does complain of some mild lightheadedness but denies any ongoing additional symptoms. His neurologic exam remains unremarkable. Repeat labs are unremarkable plan for discharge home with follow- up with primary care doctor. 01/13/18 22:59 - Vital Signs Vital signs: Temp Pulse Resp BP Pulse Ox 98.1 F 91 18 105/78 98 01/13/18 04:58 01/13/18 04:58 01/13/18 04:58 01/13/18 04:58 01/13/18 04:58 - Laboratory Result Diagrams: 01/13/18 01:32 01/13/18 02:50 Laboratory results interpreted by me: 01/13/18 02:50 Glucose 129 H - Diagnostic Test Radiology reviewed: Image reviewed, Reports reviewed Radiology results interpreted by me: 01/13/18 02:32 CT head: No acute intracranial bleed or mass - EKG Interpretation by Me Additional EKG results interpreted by me: 01/13/18 02:32 Sinus rhythm. Rate 68. No ST elevations or depressions. QTC is 456. Discharge - Discharge Clinical Impression: Lightheadedness, Impacted cerumen of right ear Nausea and vomiting Qualifiers: Vomiting type: unspecified Vomiting Intractability: non-intractable Qualified Code(s): R11.2 - Nausea with vomiting, unspecified Condition: Good Disposition: HOME, SELF-CARE Additional Instructions: The CT scan of your head and labs are normal today do not suggest a stroke and your history does not suggest a TIA. You had impacted earwax in the right ear which has been removed. This may be what caused her symptoms of dizziness. Please follow closely with your primary care physician in the next 1-3 days. Return if you pass out, have additional episodes of lightheadedness, develop weakness/numbness, have persistent vomiting, chest pain, shortness of breath or any other symptoms that are concerning to you Referrals: STEVEN PÉREZ MD [Primary Care Provider] - Follow up tomorrow
--- NOTE | 2018-01-13 01:24 | RADIOLOGY REPORT (SQ) ---
PROCEDURE: CLINICAL HISTORY: 87 years Male dizzy, vomiting, confusion COMPARISON: None. TECHNIQUE: Contiguous axial CT images obtained through the brain without IV contrast. Sagittal reformatted imaging provided. This exam was performed according to our department optimization program which includes automated exposure control, adjustment of the mA and/or kv according to patient size and/or use of iterative reconstruction technique. FINDINGS: The ventricles and sulci are prominent consistent with atrophic changes. No mass lesions. No acute hemorrhage. Atherosclerotic calcifications. No fluid or significant mucosal thickening in the visualized paranasal sinuses. No depressed calvarial fractures. IMPRESSION: No acute intracranial abnormality is identified.
[2018-01-13 01:50] LABS: ABSOLUTE BASOPHILS # (AUTO) 0.1 10^3/uL (0.0-0.2); ABSOLUTE EOSINOPHILS # (AUTO) 0.2 10^3/uL (0.0-0.6); ABSOLUTE LYMPHOCYTES (AUTO) 1.5 10^3/uL (0.5-4.7); ABSOLUTE MONOCYTES (AUTO) 0.6 10^3/uL (0.1-1.4); ABSOLUTE NEUT (AUTO) 4.7 10^3/uL (1.7-8.2); BASOPHILS % (AUTO) 1.1 % (0-2); EOSINOPHILS % (AUTO) 2.6 % (0-6); HEMATOCRIT 41.3 % (37.9-51.0); HEMOGLOBIN 14.3 g/dL (13.5-17.0); LYMPHOCYTES % (AUTO) 21.6 % (13-45); MEAN CORPUSCULAR HEMOGLOBIN 31.5 pg (27.0-33.4); MEAN CORPUSCULAR HGB CONC 34.7 g/dL (32.0-36.0); MEAN CORPUSCULAR VOLUME 91 fl (80-97); MONOCYTES % (AUTO) 8.2 % (3-13); PLATELET COUNT 241 10^3/uL (150-450); RED BLOOD COUNT 4.56 10^6/uL (4.35-5.55); RED CELL DISTRIBUTION WIDTH 13.6 % (11.5-14.0); SEGMENTED NEUTROPHILS % (AUTO) 66.5 % (42-78); TOTAL CELLS COUNTED % (AUTO) 100 %; WHITE BLOOD COUNT 7.1 10^3/uL (4.0-10.5)
[2018-01-13 04:31] LABS: ALANINE AMINOTRANSFERASE 23 U/L (21-72); ALBUMIN 3.6 g/dL (3.5-5.0); ALKALINE PHOSPHATASE 94 U/L (38-126); ANION GAP 11 (5-19); ASPARTATE AMINO TRANSFERASE 22 U/L (17-59); BILIRUBIN,DIRECT 0.3 mg/dL (0.0-0.4); BILIRUBIN,TOTAL 0.5 mg/dL (0.2-1.3); BLOOD UREA NITROGEN 13 mg/dL (7-20); CARBON DIOXIDE 27 mmol/L (22-30); CHLORIDE 105 mmol/L (98-107); GLUCOSE 129 mg/dL (75-110); POTASSIUM 4.2 mmol/L (3.6-5.0); SODIUM 142.9 mmol/L (137-145); TOTAL PROTEIN 6.6 g/dL (6.3-8.2)
--- NOTE | 2018-01-13 07:36 | EKG REPORT ---
SEVERITY:- BORDERLINE ECG - SINUS RHYTHM BORDERLINE T ABNORMALITIES, ANT-LAT LEADS : Confirmed by: Jeffrey Fair MD 13-Jan-2018 07:35:45
== END 2018-01-13 05:20 | disposition home or self-care (01) ==
LOC: ER 00:33
DX: H61.21 Impacted cerumen, right ear (principal); R42 Dizziness and giddiness; R11.2 Nausea with vomiting, unspecified; I25.10 Atherosclerotic heart disease of native coronary artery without angina pectoris; I25.2 Old myocardial infarction; I10 Essential (primary) hypertension; J45.909 Unspecified asthma, uncomplicated
CPT/HCPCS: 93005; 99284; 96374; 36415; 85025; 80053; 84484; 70450; 93010; A9270 ×2; J2765; S0119

== ENCOUNTER 2018-03-19 23:07 | Emergency (ER) | payer MEDICARE, MEDICAID ==
[2018-03-19] MEDS ORDERED: ASPIRIN 81 MG TABLET, CHEWABLE PO ONE (23:57)
[2018-03-20] MEDS ORDERED: ONDANSETRON HCL INJ/PF 4 MG/2 ML SDV IV ONE (00:02)
--- NOTE | 2018-03-20 00:05 | ER Document Report ---
ED General - General Mode of Arrival: Ambulatory Information source: Patient TRAVEL OUTSIDE OF THE [place] IN LAST 30 DAYS: No <DEWAYNE JONES - Last Filed: 03/20/18 00:20> <FITO MEADOWS - Last Filed: 03/20/18 05:03> - General Chief Complaint: Nausea/Vomiting Stated Complaint: VOMITING Time Seen by Provider: 03/19/18 23:49 Notes: Patient is an 87-year-old male with CAD, asthma, kidney cancer, dementia per [facility] records, presents to the emergency department complaining of nausea, vomiting and chest pain. Patient states that he presented to the emergency department today to get blood work drawn and began to feel nauseous and began to have chest pain. He states that yesterday he ate at [employer] where he had decreased appetite shortly after and diarrhea. He states he is currently having chest pain. At bedside patient denies any abdominal pain. Patient is reporting to [facility] on 04/04/2018 to check a "spot" on his kidneys further stating he had to get blood drawn 2 weeks prior to that visit. (DEWAYNE JONES) - Related Data Allergies/Adverse Reactions: Sulfa (Sulfonamide Antibiotics) Allergy (Unknown, Verified 01/13/18 03:08) RASH Past Medical History - General Information source: Patient - Social History Smoking Status: Unknown if Ever Smoked Family History: Reviewed & Not Pertinent, CAD Patient has suicidal ideation: No Patient has homicidal ideation: No - Past Medical History Cardiac Medical History: Reports: Hx Coronary Artery Disease, Hx Heart Attack - x4, Hx Hypercholesterolemia, Hx Hypertension Pulmonary Medical History: Reports: Hx Asthma, Hx Bronchitis, Hx Pneumonia Neurological Medical History: Reports: Hx Cerebrovascular Accident - L SIDE WEAKNESS Malignancy Medical History: Reports Hx Renal (Kidney) Cancer GI Medical History: Reports: Hx Gastroesophageal Reflux Disease, Hx Hepatitis Musculoskeletal Medical History: Reports Hx Arthritis Skin Medical History: Reports Hx MRSA Psychiatric Medical History: Reports: Hx Anxiety, Hx Dementia, Hx Depression Traumatic Medical History: Reports: Hx Fractures Infectious Medical History: Reports: Hx Hepatitis Past Surgical History: Reports: Hx Abdominal Surgery, Hx Appendectomy, Hx Cardiac Catheterization, Hx Cardiac Surgery - x4, Hx Coronary Stent - X 4 - Immunizations Immunizations up to date: Yes Hx Diphtheria, Pertussis, Tetanus Vaccination: No Hx Pneumococcal Vaccination: 08/05/10 <DEWAYNE JONES - Last Filed: 03/20/18 00:20> Review of Systems - Review of Systems Constitutional: No symptoms reported EENT: No symptoms reported Cardiovascular: See HPI, Chest pain Respiratory: No symptoms reported Gastrointestinal: See HPI, Diarrhea, Nausea, Vomiting Genitourinary: No symptoms reported Male Genitourinary: No symptoms reported Musculoskeletal: No symptoms reported Skin: No symptoms reported Hematologic/Lymphatic: No symptoms reported Neurological/Psychological: No symptoms reported -: Yes All other systems reviewed and negative <DEWAYNE JONES - Last Filed: 03/20/18 00:20> Physical Exam <DEWAYNE JONES - Last Filed: 03/20/18 00:20> <FITO MEADOWS - Last Filed: 03/20/18 05:03> - Vital signs Vitals: Pulse Resp BP Pulse Ox 65 22 H 118/69 98 03/19/18 23:31 03/19/18 23:31 03/19/18 23:31 03/19/18 23:31 - Notes Notes: GENERAL: Alert, interacts well, hard of hearing, appears uncomfortable. No acute distress. HEAD: Normocephalic, atraumatic. EYES: Pupils equal, round, and reactive to light. Extraocular movements intact. ENT: Oral mucosa moist, tongue midline. NECK: Full range of motion. Supple. Trachea midline. LUNGS: Clear to auscultation bilaterally, no wheezes, rales, or rhonchi. No respiratory distress. HEART: Regular rate and rhythm. No murmurs, gallops, or rubs. ABDOMEN: Soft, non-tender. Non-distended. Bowel sounds present in all 4 quadrants. EXTREMITIES: Moves all 4 extremities spontaneously. No edema. No cyanosis. NEUROLOGICAL: Alert and oriented x3. Normal speech. PSYCH: Normal affect, normal mood. SKIN: Warm, dry, normal turgor. No rashes or lesions noted. (DEWAYNE JONES) Course - Laboratory Result Diagrams: 03/20/18 00:05 03/20/18 00:05 <DEWAYNE JONES - Last Filed: 03/20/18 00:20> - Laboratory Result Diagrams: 03/20/18 00:05 03/20/18 00:05 - Diagnostic Test Radiology reviewed: Reports reviewed <FITO MEADOWS - Last Filed: 03/20/18 05:03> - Re-evaluation Re-evalutation: 03/20/18 02:15 Patient is feeling somewhat better. Slight hyponatremia and blood work. Otherwise within normal limits. No acute findings on EKG. 03/20/18 03:20 Feeling better. Tolerating p.o. No further symptoms. 03/20/18 04:52 Patient is an 87-year-old male who ate at a fast food restaurant last night at which point he felt nauseated. He also had loose stool which is unusual for him. Today the patient was nauseated and vomiting and had some intermittent chest pain which has since resolved and he has not had in the emergency department. No acute findings on blood work or urine. Troponin is negative 2. No acute findings on EKG. Patient is feeling better. Not orthostatic. He would like to go home. [facility] be [facility] and is to follow-up with his doctor this week. Understands agrees with plan. Stable for discharge. (FITO MEADOWS) - Vital Signs Vital signs: Temp Pulse Resp BP Pulse Ox 98.0 F 69 17 140/74 H 97 03/20/18 04:55 03/20/18 04:55 03/20/18 04:55 03/20/18 04:55 03/20/18 04:55 - Laboratory Laboratory results interpreted by me: 03/20/18 03/20/18 00:05 00:05 RBC 4.32 L Hgb 13.4 L Sodium 136.7 L Glucose 156 H ALT 17 L Discharge <DEWAYNE JONES - Last Filed: 03/20/18 00:20> <FITO MEADOWS - Last Filed: 03/20/18 05:03> - Discharge Clinical Impression: Nausea and vomiting Qualifiers: Vomiting type: unspecified Vomiting Intractability: non-intractable Qualified Code(s): R11.2 - Nausea with vomiting, unspecified Condition: Stable Disposition: HOME, SELF-CARE Instructions: Vomiting ([facility]) Referrals: STEVEN PÉREZ MD [Primary Care Provider] - Follow up tomorrow Scribe Attestation: 03/20/18 05:02 I personally performed the services described in the documentation, reviewed and edited the documentation which was dictated to the scribe in my presence, and it accurately records my words and actions. (FITO MEADOWS) Scribe Documentation - Scribe Written by Scribe:: Kinza Bañuelos, 03/20/2018 00:14 acting as scribe for :: Omi <DEWAYNE JONES - Last Filed: 03/20/18 00:20>
[2018-03-20 00:24] LABS: ABSOLUTE BASOPHILS # (AUTO) 0.1 10^3/uL (0.0-0.2); ABSOLUTE EOSINOPHILS # (AUTO) 0.3 10^3/uL (0.0-0.6); ABSOLUTE LYMPHOCYTES (AUTO) 1.7 10^3/uL (0.5-4.7); ABSOLUTE MONOCYTES (AUTO) 0.5 10^3/uL (0.1-1.4); ABSOLUTE NEUT (AUTO) 6.2 10^3/uL (1.7-8.2); BASOPHILS % (AUTO) 0.7 % (0-2); EOSINOPHILS % (AUTO) 3.3 % (0-6); HEMATOCRIT 38.9 % (37.9-51.0); HEMOGLOBIN 13.4 g/dL (13.5-17.0); LYMPHOCYTES % (AUTO) 19.2 % (13-45); MEAN CORPUSCULAR HEMOGLOBIN 31.1 pg (27.0-33.4); MEAN CORPUSCULAR HGB CONC 34.5 g/dL (32.0-36.0); MEAN CORPUSCULAR VOLUME 90 fl (80-97); MONOCYTES % (AUTO) 5.8 % (3-13); PLATELET COUNT 257 10^3/uL (150-450); RED BLOOD COUNT 4.32 10^6/uL (4.35-5.55); RED CELL DISTRIBUTION WIDTH 13.8 % (11.5-14.0); TOTAL CELLS COUNTED % (AUTO) 100 %; WHITE BLOOD COUNT 8.8 10^3/uL (4.0-10.5)
[2018-03-20 00:35] LABS: ALANINE AMINOTRANSFERASE 17 U/L (21-72); ALBUMIN 3.5 g/dL (3.5-5.0); ALKALINE PHOSPHATASE 95 U/L (38-126); ANION GAP 12 (5-19); ASPARTATE AMINO TRANSFERASE 18 U/L (17-59); BILIRUBIN,DIRECT 0.2 mg/dL (0.0-0.4); BILIRUBIN,TOTAL 0.8 mg/dL (0.2-1.3); BLOOD UREA NITROGEN 9 mg/dL (7-20); CALCIUM 8.6 mg/dL (8.4-10.2); CARBON DIOXIDE 22 mmol/L (22-30); CHLORIDE 103 mmol/L (98-107); CREATINE KINASE 86 U/L (55-170); GLUCOSE 156 mg/dL (75-110); POTASSIUM 3.8 mmol/L (3.6-5.0); SODIUM 136.7 mmol/L (137-145); TOTAL PROTEIN 6.6 g/dL (6.3-8.2)
[2018-03-20 00:47] LABS: CREATINE KINASE MB 1.07 ng/mL (<4.55)
[2018-03-20 00:51] LABS: TROPONIN I < 0.012 ng/mL
[2018-03-20] MEDS ORDERED: NORMAL SALINE 500 ML IV ONE (01:08)
[2018-03-20] MEDS ORDERED: METOCLOPRAMIDE HCL INJ/PF 10 MG/2 ML SDV IV ONE (02:10)
--- NOTE | 2018-03-20 02:12 | RADIOLOGY REPORT (SQ) ---
EXAM DESCRIPTION: XR CHEST 1 VIEW COMPLETED DATE/TME: 03/19/2018 23:57 CLINICAL HISTORY: 87 years Male, CP COMPARISON: 4.17.18 NUMBER OF VIEWS/TECHNIQUE: 1/AP FINDINGS: Increased lung volume, clear parenchyma, normal cardiac silhouette, and intact bony thorax. IMPRESSION: No acute cardiopulmonary findings.
[2018-03-20 04:39] LABS: APPEARANCE,URINE CLEAR; BILIRUBIN,URINE NEGATIVE (NEGATIVE); COLOR,URINE YELLOW; GLUCOSE, URINE NEGATIVE (NEGATIVE); KETONES,URINE NEGATIVE (NEGATIVE); LEUKOCYTE ESTERASE,URINE NEGATIVE (NEGATIVE); NITRITE,URINE NEGATIVE (NEGATIVE); PROTEIN,URINE NEGATIVE (NEGATIVE); URINE SPECIFIC GRAVITY 1.016; UROBILINOGEN,URINE NEGATIVE mg/dL (<2.0)
[2018-03-20] MEDS ORDERED: ONDANSETRON ODT 4 MG TAB (6 TAB/ER DISP) PO PRN (04:41)
[2018-03-20 05:13] VITALS: BP 135/77
--- NOTE | 2018-03-20 07:36 | EKG REPORT ---
SEVERITY:- BORDERLINE ECG - SINUS RHYTHM BORDERLINE T WAVE ABNORMALITIES : Confirmed by: Jeffrey Fair MD 20-Mar-2018 07:35:16
== END 2018-03-20 05:13 | disposition home or self-care (01) ==
LOC: ER 23:07
DX: R11.2 Nausea with vomiting, unspecified (principal); R07.9 Chest pain, unspecified; R19.7 Diarrhea, unspecified; R63.0 Anorexia; I25.10 Atherosclerotic heart disease of native coronary artery without angina pectoris; J45.909 Unspecified asthma, uncomplicated; Z85.528 Personal history of other malignant neoplasm of kidney; F03.90 Unspecified dementia, unspecified severity, without behavioral disturbance, psychotic disturbance, mood disturbance, and anxiety; I25.2 Old myocardial infarction; I10 Essential (primary) hypertension
CPT/HCPCS: 93005; 99284; 96361; 96374; 96375; 36415; 82553; 82550; 85025; 80053; 81001; 84484; 71045; 93010; A9270 ×2; J2765; J2405; J7040

== ENCOUNTER → 2018-03-27 | Outpatient (CLI) | payer MEDICARE, MEDICAID | LOC: LAB 12:17 | PROVIDERS: ATTEND Urology | DX: C64.9 Malignant neoplasm of unspecified kidney, except renal pelvis (principal) | CPT/HCPCS: 36415; 82565 ==

== ENCOUNTER 2018-04-04 12:14 | Inpatient (IN) | payer MEDICARE, MEDICAID ==
[2018-04-04] MEDS ORDERED: ASPIRIN 81 MG TABLET, CHEWABLE PO ONE (12:35)
[2018-04-04] MEDS ORDERED: NORMAL SALINE 1000 ML 1,000 ML IV ONE ×2 (12:36→15:07)
[2018-04-04 12:44] LABS: ABSOLUTE BASOPHILS # (AUTO) 0.1 10^3/uL (0.0-0.2); ABSOLUTE EOSINOPHILS # (AUTO) 0.2 10^3/uL (0.0-0.6); ABSOLUTE LYMPHOCYTES (AUTO) 2.2 10^3/uL (0.5-4.7); ABSOLUTE MONOCYTES (AUTO) 1.2 10^3/uL (0.1-1.4); ABSOLUTE NEUT (AUTO) 9.7 10^3/uL (1.7-8.2); BASOPHILS % (AUTO) 0.7 % (0-2); EOSINOPHILS % (AUTO) 1.1 % (0-6); HEMATOCRIT 43.5 % (37.9-51.0); LYMPHOCYTES % (AUTO) 16.8 % (13-45); MEAN CORPUSCULAR HEMOGLOBIN 31.2 pg (27.0-33.4); MEAN CORPUSCULAR HGB CONC 34.5 g/dL (32.0-36.0); MEAN CORPUSCULAR VOLUME 91 fl (80-97); MONOCYTES % (AUTO) 8.9 % (3-13); PLATELET COUNT 366 10^3/uL (150-450); RED CELL DISTRIBUTION WIDTH 13.7 % (11.5-14.0); SEGMENTED NEUTROPHILS % (AUTO) 72.5 % (42-78); TOTAL CELLS COUNTED % (AUTO) 100 %; WHITE BLOOD COUNT 13.4 10^3/uL (4.0-10.5)
[2018-04-04 12:50] LABS: INTERNATIONAL RATION (INR) 1.07; PROTHROMBIN TIME 14.4 SEC (11.4-15.4)
--- NOTE | 2018-04-04 13:00 | EKG REPORT ---
SEVERITY:- BORDERLINE ECG - SINUS RHYTHM BORDERLINE T WAVE ABNORMALITIES : Confirmed by: Jeffrey Fair MD 04-Apr-2018 12:59:41
[2018-04-04 13:19] LABS: TROPONIN I < 0.012 ng/mL
[2018-04-04 13:22] LABS: VENOUS BLOOD BASE EXCESS -0.5 mmol/L; VENOUS BLOOD HCO3 23.4 mmol/L (20-32); VENOUS BLOOD PCO2 36.8 mmHg (35-63); VENOUS BLOOD PH 7.42 (7.30-7.42)
[2018-04-04 13:34] LABS: APPEARANCE,URINE SLIGHTLY-CLOUDY; BILIRUBIN,URINE NEGATIVE (NEGATIVE); GLUCOSE, URINE NEGATIVE (NEGATIVE); KETONES,URINE NEGATIVE (NEGATIVE); LEUKOCYTE ESTERASE,URINE TRACE (NEGATIVE); NITRITE,URINE NEGATIVE (NEGATIVE); PROTEIN,URINE 30 mg/dL (NEGATIVE); URINE SPECIFIC GRAVITY 1.016
[2018-04-04 13:44] LABS: COLOR,URINE YELLOW
[2018-04-04 13:47] LABS: ALANINE AMINOTRANSFERASE 21 U/L (21-72); ALBUMIN 3.5 g/dL (3.5-5.0); ALKALINE PHOSPHATASE 75 U/L (38-126); ANION GAP 13 (5-19); ASPARTATE AMINO TRANSFERASE 23 U/L (17-59); BILIRUBIN,DIRECT 0.3 mg/dL (0.0-0.4); BILIRUBIN,TOTAL 0.9 mg/dL (0.2-1.3); BLOOD UREA NITROGEN 18 mg/dL (7-20); CALCIUM 8.3 mg/dL (8.4-10.2); CARBON DIOXIDE 20 mmol/L (22-30); CHLORIDE 105 mmol/L (98-107); CREATINE KINASE 160 U/L (55-170); GLUCOSE 110 mg/dL (75-110); POTASSIUM 3.4 mmol/L (3.6-5.0); SODIUM 138.4 mmol/L (137-145); TOTAL PROTEIN 6.7 g/dL (6.3-8.2)
--- NOTE | 2018-04-04 13:54 | RADIOLOGY REPORT (SQ) ---
EXAM DESCRIPTION: CHEST 2 VIEWS COMPLETED DATE/TIME: 04/04/2018 1:44 pm REASON FOR STUDY: CP SYNCOPE COMPARISON: 03/20/2018 EXAM PARAMETERS: NUMBER OF VIEWS: two views TECHNIQUE: Digital Frontal and Lateral radiographic views of the chest acquired. RADIATION DOSE: NA LIMITATIONS: none FINDINGS: LUNGS AND PLEURA: No opacities, masses or pneumothorax. No pleural effusion. MEDIASTINUM AND HILAR STRUCTURES: No masses or contour abnormalities. HEART AND VASCULAR STRUCTURES: Heart normal size. No evidence for failure. BONES: No acute findings. HARDWARE: None in the chest. OTHER: No other significant finding. IMPRESSION: NO ACUTE RADIOGRAPHIC FINDING IN THE CHEST. TECHNICAL DOCUMENTATION: JOB ID: [id number] [employer]- All Rights Reserved Reading location - IP/workstation name: [email or web address]
[2018-04-04] MEDS ORDERED: MECLIZINE HCL 25 MG TABLET PO ONE (15:10)
--- NOTE | 2018-04-04 15:40 | ER Document Report ---
ED General - General Chief Complaint: Syncope Stated Complaint: SYNCOPE Time Seen by Provider: 04/04/18 12:25 TRAVEL OUTSIDE OF THE [place] IN LAST 30 DAYS: No - HPI Patient complains to provider of: Syncope chest pain Notes: Patient coming in for evaluation of syncope and chest pain. Patient states last night while having a bowel movement patient has syncopal episode workup on the ground after sitting on the toilet trying to have a bowel movement. Patient states he is covered in feces. Patient denies any seizure activity. Patient states today lightheaded and dizzy especially when he is moving around also states having some substernal chest pain earlier this morning. Patient was able to eat breakfast without difficulty. Patient was scheduled to have a CAT scan performed today at [facility] for further evaluation of renal masses that are known on his kidneys. Patient states that he is unable to go to [place] and is requesting that we perform the CAT scans here. Patient otherwise denies any current chest pain fevers chills nausea vomiting diarrhea denies any head trauma headache states that he has had normal p.o. intake - Related Data Allergies/Adverse Reactions: Sulfa (Sulfonamide Antibiotics) Allergy (Unknown, Verified 01/13/18 03:08) RASH Past Medical History - Social History Smoking Status: Unknown if Ever Smoked Family History: Reviewed & Not Pertinent, CAD - Past Medical History Cardiac Medical History: Reports: Hx Coronary Artery Disease, Hx Heart Attack - x4, Hx Hypercholesterolemia, Hx Hypertension Denies: Hx Atrial Fibrillation, Hx Congestive Heart Failure Pulmonary Medical History: Reports: Hx Asthma, Hx Bronchitis, Hx Pneumonia Denies: Hx COPD, Hx Tuberculosis Neurological Medical History: Reports: Hx Cerebrovascular Accident - L SIDE WEAKNESS. Denies: Hx Seizures Renal/ Medical History: Denies: Hx End Stage Renal Disease, Hx Kidney Stones, Hx Peritoneal Dialysis Malignancy Medical History: Reports Hx Renal (Kidney) Cancer GI Medical History: Reports: Hx Gastroesophageal Reflux Disease, Hx Hepatitis. Denies: Hx Hiatal Hernia, Hx Ulcer Musculoskeletal Medical History: Reports Hx Arthritis Skin Medical History: Reports Hx MRSA Psychiatric Medical History: Reports: Hx Anxiety, Hx Dementia, Hx Depression Denies: Hx Bipolar Disorder, Hx Schizophrenia Traumatic Medical History: Reports: Hx Fractures Infectious Medical History: Reports: Hx Hepatitis Past Surgical History: Reports: Hx Abdominal Surgery, Hx Appendectomy, Hx Cardiac Catheterization, Hx Cardiac Surgery - x4, Hx Coronary Stent - X 4. Denies: Hx Bowel Surgery, Hx Cholecystectomy, Hx Open Heart Surgery, Hx Tonsillectomy - Immunizations Immunizations up to date: Yes Hx Diphtheria, Pertussis, Tetanus Vaccination: No Hx Pneumococcal Vaccination: 08/05/10 Review of Systems - Review of Systems Constitutional: No symptoms reported EENT: No symptoms reported Cardiovascular: Chest pain, Syncope, Dizziness, Other - Dizziness Respiratory: No symptoms reported Gastrointestinal: No symptoms reported Genitourinary: No symptoms reported Male Genitourinary: No symptoms reported Musculoskeletal: No symptoms reported Skin: No symptoms reported Hematologic/Lymphatic: No symptoms reported Neurological/Psychological: No symptoms reported -: Yes All other systems reviewed and negative Physical Exam - Vital signs Vitals: Pulse BP 80 114/71 04/04/18 15:05 04/04/18 15:05 Interpretation: Normal - General General appearance: Appears well, Alert - HEENT Head: Normocephalic, Atraumatic Eyes: Normal Pupils: PERRL - Respiratory Respiratory status: No respiratory distress Chest status: Nontender Breath sounds: Normal Chest palpation: Normal - Cardiovascular Rhythm: Regular Heart sounds: Normal auscultation Murmur: No - Abdominal Inspection: Normal Distension: No distension Bowel sounds: Normal Tenderness: Nontender Organomegaly: No organomegaly - Back Back: Normal, Nontender - Extremities General upper extremity: Normal inspection, Nontender, Normal color, Normal ROM , Normal temperature General lower extremity: Normal inspection, Nontender, Normal color, Normal ROM , Normal temperature, Normal weight bearing. No: Ne's sign - Neurological Neuro grossly intact: Yes Cognition: Normal Orientation: AAOx4 Henny Coma Scale Eye Opening: Spontaneous Crescent Coma Scale Verbal: Oriented Henny Coma Scale Motor: Obeys Commands Crescent Coma Scale Total: 15 Speech: Normal Motor strength normal: LUE, RUE, LLE, RLE Sensory: Normal - Psychological Associated symptoms: Normal affect, Normal mood - Skin Skin Temperature: Warm Skin Moisture: Dry Skin Color: Normal Course - Re-evaluation Re-evalutation: 04/04/18 18:10 Laboratory studies do show signs dehydration and low bicarb patient is orthostatic with reproducible symptoms patient is dizzy whenever standing. Patient EKG chest x-ray and troponin are all negative. Discussed with PCP will admit the patient for study dizziness and continued workup of his underlying chest pain. - Vital Signs Vital signs: Temp Pulse Resp BP Pulse Ox 80 114/71 04/04/18 15:05 04/04/18 15:05 - Laboratory Result Diagrams: 04/04/18 12:00 04/04/18 12:26 Laboratory results interpreted by me: 04/04/18 04/04/18 04/04/18 12:00 12:26 12:26 WBC 13.4 H Absolute Neutrophils 9.7 H Potassium 3.4 L Carbon Dioxide 20 L Creatinine 1.58 H Est GFR ( Amer) 51 L Est GFR (Non-Af Amer) 42 L Calcium 8.3 L Urine Protein 30 H Urine Blood SMALL H Urine Urobilinogen 2.0 H Ur Leukocyte Esterase TRACE H Discharge - Discharge Clinical Impression: Orthostatic dizziness, Renal mass, Chest pain of uncertain etiology, Syncope, Acute renal failure Condition: Good Disposition: ADMITTED OBSERVATION Admitting Provider: [facility] Admitted: Telemetry
[2018-04-04] MEDS ORDERED: NITROGLYCERIN 0.4 MG/TAB 25 TAB/BOTTLE SL PRN (18:50)
[2018-04-04] MEDS ORDERED: LUBIPROSTONE 24 MCG CAPSULE PO PRN (18:50)
[2018-04-04] MEDS ORDERED: (PENDING PHARMACY ID) (Oxycodone Hcl/Acetaminophen [Percocet 10-325 Mg Tablet] 1 TAB) PO PRN (18:50)
[2018-04-04] MEDS ORDERED: (PENDING PHARMACY ID) (Ranitidine Hcl [Zantac 150 Mg Tablet] 150 MG) PO SCH (19:00)
[2018-04-04] MEDS ORDERED: (PENDING PHARMACY ID) (Losartan/Hydrochlorothiazide [Losartan-Hctz 50-12.5 Mg Tab] 1 TAB) PO SCH (19:00)
[2018-04-04] MEDS ORDERED: (PENDING PHARMACY ID) (Pravastatin Sodium [Pravachol] 40 MG) PO SCH (19:00)
[2018-04-04] MEDS ORDERED: (PENDING PHARMACY ID) (Buspirone Hcl [Buspar 15 Mg Tablet] 7.5 MG) PO SCH (19:00)
[2018-04-04] MEDS ORDERED: ALBUTEROL SULFATE HFA (90 MCG/PUFF) 200 PUFF/8.5 GM MDI IH PRN (20:00)
[2018-04-04] MEDS ORDERED: OXYCODONE HCL IR 5 MG TABLET PO PRN (20:26)
--- NOTE | 2018-04-04 20:54 | PDOC H&P ---
History of Present Illness Admission Date/PCP: 04/04/18 16:36 STEVEN PÉREZ MD History of Present Illness: JERRY PELAEZ is a 87 year old male He came to the emergency room for evaluation of syncope, he had episode of loss of consciousness last night while he was having a bowel movement. He was seen in the emergency room and evaluated he also complained of atypical chest pain Past Medical History Cardiac Medical History: Reports: Coronary Artery Disease, Myocardial Infarction - x4, Hyperlipidema, Hypertension Pulmonary Medical History: Reports: Asthma, Bronchitis, Pneumonia Malignancy Medical History: Reports: Renal (Kidney) Cancer GI Medical History: Reports: Gastroesophageal Reflux Disease, Hepatitis Musculoskeltal Medical History: Reports: Arthritis Psychiatric Medical History: Reports: Dementia, Depression Past Surgical History Past Surgical History: Reports: Appendectomy, Cardiac Catheterization, Coronary Stent - X 4 Social History Smoking Status: Unknown if Ever Smoked Frequency of Alcohol Use: None Hx Recreational Drug Use: No Drugs: None Hx Prescription Drug Abuse: No - Advance Directive Resuscitation Status: Full Code Family History Family History: Reviewed & Not Pertinent, CAD Parental Family History Reviewed: Yes Children Family History Reviewed: Yes Sibling(s) Family History Reviewed.: Yes Medication/Allergy Home Medications: Albuterol Sulfate [Ventolin Hfa] 2 puff IH Q4HP PRN 11/19/17 Aspirin [Aspirin 81 mg Chewable Tablet] 81 mg PO DAILY 11/19/17 Buspirone HCl [Buspar 15 mg Tablet] 7.5 mg PO BID 11/19/17 Carvedilol [Coreg 3.125 mg Tablet] 3.125 mg PO Q12 11/19/17 Clopidogrel Bisulfate [Plavix 75 mg Tablet] 75 mg PO DAILY 11/19/17 Donepezil HCl [Aricept] 10 mg PO QHS 11/19/17 Oxycodone HCl/Acetaminophen [Percocet 10-325 mg Tablet] 1 tab PO Q6HP PRN Pravastatin Sodium [Pravachol] 40 mg PO DAILY 11/19/17 Ranitidine HCl [Zantac 150 mg Tablet] 150 mg PO BID 11/19/17 Duloxetine HCl [Cymbalta] 30 mg PO DAILY 04/04/18 Losartan/Hydrochlorothiazide [Losartan-Hctz 50-12.5 mg Tab] 1 tab PO DAILY 04/04 Lubiprostone [Amitiza 24 Mcg Capsule] 24 mcg PO DAILYP PRN 04/04/18 Nitroglycerin [Nitrostat 0.4 mg (1/150 Gr) Tabs 25/Bottle] 1 tab PO DAILYP PRN 04/04/18 Valsartan [Diovan 40 mg Tablet] 40 mg PO Q12 04/04/18 Allergies/Adverse Reactions: Sulfa (Sulfonamide Antibiotics) Allergy (Unknown, Verified 01/13/18 03:08) RASH Review of Systems Constitutional: ABSENT: chills, fever(s), headache(s), weight gain, weight loss Eyes: ABSENT: visual disturbances Ears: ABSENT: hearing changes Cardiovascular: ABSENT: chest pain, dyspnea on exertion, edema, orthropnea, palpitations Respiratory: ABSENT: cough, hemoptysis Gastrointestinal: ABSENT: abdominal pain, constipation, diarrhea, hematemesis, hematochezia, nausea, vomiting Genitourinary: ABSENT: dysuria, hematuria Musculoskeletal: ABSENT: joint swelling Integumentary: ABSENT: rash, wounds Neurological: PRESENT: syncope. ABSENT: abnormal gait, abnormal speech, confusion, dizziness, focal weakness Psychiatric: ABSENT: anxiety, depression, homidical ideation, suicidal ideation Endocrine: ABSENT: cold intolerance, heat intolerance, menstrual abnormalities, polydipsia, polyuria Hematologic/Lymphatic: ABSENT: easy bleeding, easy bruising, lymphadenopathy Physical Exam Vital Signs: Temp Pulse Resp BP Pulse Ox 98.9 F 89 16 112/59 L 95 04/04/18 19:00 04/04/18 19:00 04/04/18 19:00 04/04/18 19:00 04/04/18 19:00 Intake & Output 04/03/18 04/04/18 04/05/18 06:59 06:59 06:59 Weight 80.45 kg General appearance: PRESENT: no acute distress, well-developed, well-nourished Head exam: PRESENT: atraumatic, normocephalic Eye exam: PRESENT: conjunctiva pink, EOMI, PERRLA Ear exam: PRESENT: normal external ear exam Mouth exam: PRESENT: moist, tongue midline Neck exam: PRESENT: full ROM Respiratory exam: PRESENT: clear to auscultation alicia Cardiovascular exam: PRESENT: RRR, +S1, +S2 Pulses: PRESENT: normal dorsalis pedis pul, +2 pedal pulses bilateral Vascular exam: PRESENT: normal capillary refill GI/Abdominal exam: PRESENT: normal bowel sounds, soft Rectal exam: PRESENT: deferred Neurological exam: PRESENT: alert, awake, oriented to person, oriented to place , oriented to time, oriented to situation, CN II-XII grossly intact Psychiatric exam: PRESENT: appropriate affect, normal mood Skin exam: PRESENT: dry, intact, warm Results Laboratory Results: 04/04/18 17:53 Troponin I < 0.012 Impressions: Chest X-Ray 04/04/18 12:36 IMPRESSION: NO ACUTE RADIOGRAPHIC FINDING IN THE CHEST. Assessment & Plan - Diagnosis (1) Syncope Qualifiers: Syncope type: unspecified Qualified Code(s): R55 - Syncope and collapse Is this a current diagnosis for this admission?: Yes Plan: He has desiccation syncope. (2) Chest pain Is this a current diagnosis for this admission?: Yes (3) Left kidney mass Is this a current diagnosis for this admission?: Yes
[2018-04-04] MEDS ORDERED: HYDROCHLOROTHIAZIDE 12.5 MG TABLET PO SCH (21:00)
[2018-04-04] MEDS ORDERED: LOSARTAN POTASSIUM 50 MG TABLET PO SCH (21:00)
[2018-04-04] MEDS: ASPIRIN 81 MG TABLET, CHEWABLE PO SCH (21:57)
[2018-04-04] MEDS: DULOXETINE HCL 30 MG CAPSULE.DR PO SCH (21:57)
[2018-04-04] MEDS: CLOPIDOGREL BISULFATE 75 MG TABLET PO SCH (21:57)
[2018-04-04] MEDS: CARVEDILOL 3.125 MG TABLET PO SCH (21:57)
[2018-04-04 21:59] LABS: CREATINE KINASE MB 1.16 ng/mL (<4.55)
[2018-04-04] MEDS: FAMOTIDINE 20 MG TABLET PO SCH (21:59)
[2018-04-04] MEDS: ATORVASTATIN CALCIUM 10 MG TABLET PO SCH (21:59)
[2018-04-04 22:00] LABS: TROPONIN I < 0.012 ng/mL
[2018-04-04] MEDS ORDERED: (PENDING PHARMACY ID) (Donepezil Hcl [Aricept] 10 MG) PO SCH (22:00)
[2018-04-04] MEDS: VALSARTAN 40 MG TABLET PO SCH ×2 (22:04→22:34)
[2018-04-04] MEDS ORDERED: DONEPEZIL HCL 5 MG TABLET ONE (22:57)
[2018-04-04] MEDS: DONEPEZIL HCL 5 MG TABLET PO SCH (23:31)
[2018-04-05 06:16] LABS: CREATINE KINASE MB 1.06 ng/mL (<4.55)
[2018-04-05 06:17] LABS: TROPONIN I < 0.012 ng/mL
[2018-04-05] MEDS: FAMOTIDINE 20 MG TABLET PO SCH ×2 (10:09→21:22)
[2018-04-05] MEDS: DULOXETINE HCL 30 MG CAPSULE.DR PO SCH (10:09)
[2018-04-05] MEDS: CLOPIDOGREL BISULFATE 75 MG TABLET PO SCH (10:10)
[2018-04-05] MEDS: ASPIRIN 81 MG TABLET, CHEWABLE PO SCH (10:10)
[2018-04-05] MEDS: LOSARTAN POTASSIUM 50 MG TABLET PO SCH (10:10)
[2018-04-05] MEDS: CARVEDILOL 3.125 MG TABLET PO SCH ×2 (10:11→21:22)
[2018-04-05] MEDS: VALSARTAN 40 MG TABLET PO SCH ×2 (10:13→21:26)
[2018-04-05] MEDS: HYDROCHLOROTHIAZIDE 12.5 MG TABLET PO SCH (10:14)
[2018-04-05] MEDS: ENOXAPARIN SODIUM INJ 30 MG/0.3 ML DISP.SYRIN SUBCUT SCH (10:14)
--- NOTE | 2018-04-05 12:33 | PDOC PROGRESS REPORT ---
Subjective Progress Note for:: 04/05/18 Subjective:: Patient denied recurrent syncope. No constipation or diarrhea. Requesting for [id number] bedside commode to assist at home. Denied fever or chill. No nausea , vomiting or abdominal pain. No chest pain or difficulty with breathing. Reason For Visit: DEFECATION SYNCOPE Physical Exam Vital Signs: Temp Pulse Resp BP Pulse Ox 98.5 F 79 16 135/65 H 99 04/05/18 12:03 04/05/18 12:03 04/05/18 12:03 04/05/18 12:03 04/05/18 12:03 Intake & Output 04/04/18 04/05/18 04/06/18 06:59 06:59 06:59 Intake Total 1400 595 Output Total 350 200 Balance 1050 395 Weight 81 kg General appearance: PRESENT: no acute distress Head exam: PRESENT: atraumatic, normocephalic Ear exam: PRESENT: normal external ear exam, other - some degree of hearing impairment Mouth exam: PRESENT: moist Respiratory exam: PRESENT: clear to auscultation alicia Cardiovascular exam: PRESENT: RRR. ABSENT: diastolic murmur, rubs, systolic murmur Vascular exam: ABSENT: pallor GI/Abdominal exam: PRESENT: normal bowel sounds, soft. ABSENT: distended, guarding, mass, organolmegaly, rebound, tenderness Rectal exam: PRESENT: deferred Extremities exam: ABSENT: pedal edema Musculoskeletal exam: PRESENT: deformity - related to arthritis involvment in multiple joints. Neurological exam: PRESENT: alert, awake - and appropriate in responses Psychiatric exam: PRESENT: appropriate affect, normal mood. ABSENT: homicidal ideation, suicidal ideation Skin exam: PRESENT: dry, warm Results Laboratory Results: 04/04/18 04/04/18 04/04/18 17:53 21:14 21:14 Creatine Kinase 126 CK-MB (CK-2) 1.16 Troponin I < 0.012 < 0.012 04/05/18 04/05/18 05:15 05:15 Creatine Kinase 118 CK-MB (CK-2) 1.06 Troponin I < 0.012 Impressions: Chest X-Ray 04/04/18 12:36 IMPRESSION: NO ACUTE RADIOGRAPHIC FINDING IN THE CHEST. Assessment & Plan - Diagnosis (1) Syncope, vasovagal Is this a current diagnosis for this admission?: Yes Plan: Continue current medication management. (2) Probable sepsis Is this a current diagnosis for this admission?: Yes Plan: Possible contribution to his syncope episode. Obtain urine culture and start on IV antibiotic therapy. (3) HTN (hypertension) Qualifiers: Hypertension type: essential hypertension Qualified Code(s): I10 - Essential (primary) hypertension Is this a current diagnosis for this admission?: Yes Plan: Continue current medication management. (4) HLD (hyperlipidemia) Qualifiers: Hyperlipidemia type: unspecified Qualified Code(s): E78.5 - Hyperlipidemia , unspecified Is this a current diagnosis for this admission?: Yes Plan: Continue current medication management. (5) Coronary artery disease Qualifiers: Coronary Disease-Associated Artery/Lesion type: unspecified vessel or lesion type [place] vs. transplanted heart: [place] heart Associated angina: angina presence unspecified Qualified Code(s): I25.10 - Atherosclerotic heart disease of [place] coronary artery without angina pectoris Is this a current diagnosis for this admission?: Yes Plan: Continue current medication management. (6) Old [place] (myocardial infarction) Is this a current diagnosis for this admission?: Yes Plan: Continue current medication management. (7) GERD (gastroesophageal reflux disease) Qualifiers: Esophagitis presence: without esophagitis Qualified Code(s): K21.9 - Gastro -esophageal reflux disease without esophagitis Is this a current diagnosis for this admission?: Yes Plan: Continue current medication management. - Time Time Spent with patient: 25-34 minutes Medications reviewed and adjusted accordingly: Yes Anticipated discharge: Home with Homehealth Within: within 48 hours - Inpatient Certification Based on my medical assessment, after consideration of the patient's comorbidities, presenting symptoms, or acuity I expect that the services needed warrant INPATIENT care.: Yes I certify that my determination is in accordance with my understanding of Medicare's requirements for reasonable and necessary INPATIENT services [42 CFR 412.3e].: Yes Medical Necessity: Need Close Monitoring Due to Risk of Patient Decompensation, Need For IV Fluids, Need For Continuous Telemetry Monitoring, Need for IV Antibiotics 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 I will change admission status to full admission in view of his symptomatic UTI, hypokalemia and functional limitations.
[2018-04-05] MEDS ORDERED: CEFTRIAXONE 1 GM/D5W RTU 1 GM/50 ML RTUPB IV SCH (13:00)
[2018-04-05 13:50] LABS: CREATINE KINASE MB 1.05 ng/mL (<4.55)
[2018-04-05 13:55] LABS: TROPONIN I < 0.012 ng/mL
[2018-04-05] MEDS: CEFTRIAXONE SODIUM 1,000 MG in NORMAL SALINE 50 ML IV SCH (14:51)
[2018-04-05] MEDS: ATORVASTATIN CALCIUM 10 MG TABLET PO SCH (21:22)
[2018-04-05] MEDS: DONEPEZIL HCL 5 MG TABLET PO SCH (21:22)
[2018-04-05 21:44] LABS: CREATINE KINASE MB 1.02 ng/mL (<4.55)
[2018-04-05 21:49] LABS: TROPONIN I < 0.012 ng/mL
[2018-04-06] MEDS: FAMOTIDINE 20 MG TABLET PO SCH ×2 (09:09→21:05)
[2018-04-06] MEDS: ASPIRIN 81 MG TABLET, CHEWABLE PO SCH (09:09)
[2018-04-06] MEDS: DULOXETINE HCL 30 MG CAPSULE.DR PO SCH (09:09)
[2018-04-06] MEDS: CLOPIDOGREL BISULFATE 75 MG TABLET PO SCH (09:09)
[2018-04-06] MEDS: VALSARTAN 40 MG TABLET PO SCH ×2 (09:10→21:06)
[2018-04-06] MEDS: HYDROCHLOROTHIAZIDE 12.5 MG TABLET PO SCH (09:11)
[2018-04-06] MEDS: CARVEDILOL 3.125 MG TABLET PO SCH ×2 (09:11→21:05)
[2018-04-06] MEDS: LOSARTAN POTASSIUM 50 MG TABLET PO SCH (09:14)
[2018-04-06] MEDS: ENOXAPARIN SODIUM INJ 30 MG/0.3 ML DISP.SYRIN SUBCUT SCH (09:16)
--- NOTE | 2018-04-06 10:53 | PDOC PROGRESS REPORT ---
Subjective Progress Note for:: 04/06/18 Subjective:: No recurrent syncope. No dizziness, headache, or vertigo. No chest pain or difficulty with breathing. No fever or chills. No abdominal pain, nausea or vomiting. Remain on IV Rocephin coverage. Reason For Visit: SYNCOPE,UTI,HYPOKALEMIA Physical Exam Vital Signs: Temp Pulse Resp BP Pulse Ox 98.1 F 76 12 126/69 H 98 04/06/18 07:00 04/06/18 07:00 04/06/18 07:00 04/06/18 07:00 04/06/18 07:00 Intake & Output 04/05/18 04/06/18 04/07/18 06:59 06:59 06:59 Intake Total 272 Output Total 1075 Balance -803 Weight 82.8 kg Physical Exam: General appearance: PRESENT: no acute distress Head exam: PRESENT: atraumatic, normocephalic Ear exam: PRESENT: normal external ear exam, other - some degree of hearing impairment Mouth exam: PRESENT: moist Respiratory exam: PRESENT: clear to auscultation alicia Cardiovascular exam: PRESENT: RRR. ABSENT: diastolic murmur, rubs, systolic murmur Vascular exam: ABSENT: pallor GI/Abdominal exam: PRESENT: normal bowel sounds, soft. ABSENT: distended, guarding, mass, organomegaly, rebound, tenderness Extremities exam: ABSENT: pedal edema Musculoskeletal exam: PRESENT: deformity - related to arthritis involvement in multiple joints. Neurological exam: PRESENT: alert, awake - and appropriate in responses Psychiatric exam: PRESENT: appropriate affect, normal mood. ABSENT: homicidal ideation, suicidal ideation Skin exam: PRESENT: dry, warm Results Laboratory Results: 04/05/18 04/05/18 04/05/18 12:55 12:55 21:00 Creatine Kinase 98 95 CK-MB (CK-2) 1.05 Troponin I < 0.012 04/05/18 21:00 Creatine Kinase CK-MB (CK-2) 1.02 Troponin I < 0.012 Impressions: Chest X-Ray 04/04/18 12:36 IMPRESSION: NO ACUTE RADIOGRAPHIC FINDING IN THE CHEST. Assessment & Plan - Diagnosis (1) Syncope, vasovagal Is this a current diagnosis for this admission?: Yes (2) Probable sepsis Is this a current diagnosis for this admission?: Yes (3) HTN (hypertension) Qualifiers: Hypertension type: essential hypertension Qualified Code(s): I10 - Essential (primary) hypertension Is this a current diagnosis for this admission?: Yes (4) HLD (hyperlipidemia) Qualifiers: Hyperlipidemia type: unspecified Qualified Code(s): E78.5 - Hyperlipidemia , unspecified Is this a current diagnosis for this admission?: Yes (5) Coronary artery disease Qualifiers: Coronary Disease-Associated Artery/Lesion type: unspecified vessel or lesion type [place] vs. transplanted heart: [place] heart Associated angina: angina presence unspecified Qualified Code(s): I25.10 - Atherosclerotic heart disease of [place] coronary artery without angina pectoris Is this a current diagnosis for this admission?: Yes (6) Old [place] (myocardial infarction) Is this a current diagnosis for this admission?: Yes (7) GERD (gastroesophageal reflux disease) Qualifiers: Esophagitis presence: without esophagitis Qualified Code(s): K21.9 - Gastro -esophageal reflux disease without esophagitis Is this a current diagnosis for this admission?: Yes - Time Time Spent with patient: 25-34 minutes Medications reviewed and adjusted accordingly: Yes Anticipated discharge: Home with Homehealth Within: Other - Inpatient Certification Based on my medical assessment, after consideration of the patient's comorbidities, presenting symptoms, or acuity I expect that the services needed warrant INPATIENT care.: Yes I certify that my determination is in accordance with my understanding of Medicare's requirements for reasonable and necessary INPATIENT services [42 CFR 412.3e].: Yes Medical Necessity: Need Close Monitoring Due to Risk of Patient Decompensation, Need For IV Fluids, Need For Continuous Telemetry Monitoring, Need for IV Antibiotics, Risk of Complication if Not Cared For in Hospital 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
[2018-04-06] MEDS: CEFTRIAXONE SODIUM 1,000 MG in NORMAL SALINE 50 ML IV SCH (13:11)
[2018-04-06] MEDS: ATORVASTATIN CALCIUM 10 MG TABLET PO SCH (21:05)
[2018-04-06] MEDS: DONEPEZIL HCL 5 MG TABLET PO SCH (21:05)
[2018-04-07 06:18] LABS: ABSOLUTE BASOPHILS # (AUTO) 0.1 10^3/uL (0.0-0.2); ABSOLUTE EOSINOPHILS # (AUTO) 0.3 10^3/uL (0.0-0.6); ABSOLUTE MONOCYTES (AUTO) 0.8 10^3/uL (0.1-1.4); ABSOLUTE NEUT (AUTO) 5.4 10^3/uL (1.7-8.2); BASOPHILS % (AUTO) 0.9 % (0-2); EOSINOPHILS % (AUTO) 3.6 % (0-6); HEMATOCRIT 39.5 % (37.9-51.0); HEMOGLOBIN 13.7 g/dL (13.5-17.0); MEAN CORPUSCULAR HEMOGLOBIN 31.9 pg (27.0-33.4); MEAN CORPUSCULAR HGB CONC 34.7 g/dL (32.0-36.0); MEAN CORPUSCULAR VOLUME 92 fl (80-97); MONOCYTES % (AUTO) 9.8 % (3-13); PLATELET COUNT 274 10^3/uL (150-450); RED CELL DISTRIBUTION WIDTH 13.3 % (11.5-14.0); SEGMENTED NEUTROPHILS % (AUTO) 62.7 % (42-78); TOTAL CELLS COUNTED % (AUTO) 100 %; WHITE BLOOD COUNT 8.6 10^3/uL (4.0-10.5)
[2018-04-07 06:58] LABS: ALANINE AMINOTRANSFERASE 18 U/L (21-72); ALKALINE PHOSPHATASE 80 U/L (38-126); ANION GAP 11 (5-19); ASPARTATE AMINO TRANSFERASE 25 U/L (17-59); BILIRUBIN,DIRECT 0.3 mg/dL (0.0-0.4); BLOOD UREA NITROGEN 18 mg/dL (7-20); CALCIUM 9.4 mg/dL (8.4-10.2); CARBON DIOXIDE 29 mmol/L (22-30); CHLORIDE 99 mmol/L (98-107); GLUCOSE 105 mg/dL (75-110); POTASSIUM 4.4 mmol/L (3.6-5.0); SODIUM 138.7 mmol/L (137-145); TOTAL PROTEIN 7.2 g/dL (6.3-8.2)
[2018-04-07] MEDS: DULOXETINE HCL 30 MG CAPSULE.DR PO SCH (10:05)
[2018-04-07] MEDS: FAMOTIDINE 20 MG TABLET PO SCH ×2 (10:05→22:45)
[2018-04-07] MEDS: ASPIRIN 81 MG TABLET, CHEWABLE PO SCH (10:05)
[2018-04-07] MEDS: CLOPIDOGREL BISULFATE 75 MG TABLET PO SCH (10:05)
[2018-04-07] MEDS: CARVEDILOL 3.125 MG TABLET PO SCH ×2 (10:06→22:44)
[2018-04-07] MEDS: HYDROCHLOROTHIAZIDE 12.5 MG TABLET PO SCH (10:06)
[2018-04-07] MEDS: VALSARTAN 40 MG TABLET PO SCH ×2 (10:07→22:45)
[2018-04-07] MEDS: ENOXAPARIN SODIUM INJ 30 MG/0.3 ML DISP.SYRIN SUBCUT SCH (10:08)
[2018-04-07] MEDS: LOSARTAN POTASSIUM 50 MG TABLET PO SCH (10:10)
[2018-04-07] MEDS: OXYCODONE-ACETAMINOPHEN 5-325 MG TABLET PO PRN (10:17)
--- NOTE | 2018-04-07 11:29 | PDOC PROGRESS REPORT ---
Subjective Progress Note for:: 04/07/18 Subjective:: Patient denied any recurrent syncope or dizziness. No chest pain or difficulty with breathing. No fever or chills. No abdominal pain, nausea or vomiting. Reason For Visit: SYNCOPE,UTI,HYPOKALEMIA Physical Exam Vital Signs: Temp Pulse Resp BP Pulse Ox 98.1 F 77 14 122/88 H 96 04/07/18 07:18 04/07/18 07:18 04/07/18 07:18 04/07/18 07:18 04/07/18 07:18 Intake & Output 04/06/18 04/07/18 04/08/18 06:59 06:59 06:59 Intake Total 272 1153 Output Total 1075 1930 Balance -803 -777 Weight 82.8 kg 81.4 kg Physical Exam: General appearance: PRESENT: no acute distress Head exam: PRESENT: atraumatic, normocephalic Ear exam: PRESENT: normal external ear exam, other - some degree of hearing impairment Mouth exam: PRESENT: moist Respiratory exam: PRESENT: clear to auscultation alicia Cardiovascular exam: PRESENT: RRR. ABSENT: diastolic murmur, rubs, systolic murmur Vascular exam: ABSENT: pallor GI/Abdominal exam: PRESENT: normal bowel sounds, soft. ABSENT: distended, guarding, mass, organomegaly, rebound, tenderness Extremities exam: ABSENT: pedal edema Musculoskeletal exam: PRESENT: deformity - related to arthritis involvement in multiple joints. Neurological exam: PRESENT: alert, awake - and appropriate in responses Psychiatric exam: PRESENT: appropriate affect, normal mood. ABSENT: homicidal ideation, suicidal ideation Skin exam: PRESENT: dry, warm Results Laboratory Results: 04/07/18 05:39 04/07/18 05:39 04/07/18 04/07/18 05:39 05:39 WBC 8.6 RBC 4.30 L Hgb 13.7 Hct 39.5 MCV 92 MCH 31.9 MCHC 34.7 RDW 13.3 Plt Count 274 Seg Neutrophils % 62.7 Lymphocytes % 23.0 Monocytes % 9.8 Eosinophils % 3.6 Basophils % 0.9 Absolute Neutrophils 5.4 Absolute Lymphocytes 2.0 Absolute Monocytes 0.8 Absolute Eosinophils 0.3 Absolute Basophils 0.1 Sodium 138.7 Potassium 4.4 Chloride 99 Carbon Dioxide 29 Anion Gap 11 BUN 18 Creatinine 1.05 Est GFR ( Amer) > 60 Est GFR (Non-Af Amer) > 60 Glucose 105 Calcium 9.4 Total Bilirubin 1.0 AST 25 ALT 18 L Alkaline Phosphatase 80 Total Protein 7.2 Albumin 4.0 04/05/18 04/05/18 04/05/18 12:55 12:55 21:00 Creatine Kinase 98 95 CK-MB (CK-2) 1.05 Troponin I < 0.012 04/05/18 21:00 Creatine Kinase CK-MB (CK-2) 1.02 Troponin I < 0.012 Impressions: Chest X-Ray 04/04/18 12:36 IMPRESSION: NO ACUTE RADIOGRAPHIC FINDING IN THE CHEST. Assessment & Plan - Diagnosis (1) Syncope, vasovagal Is this a current diagnosis for this admission?: Yes (2) Probable sepsis Is this a current diagnosis for this admission?: Yes (3) HTN (hypertension) Qualifiers: Hypertension type: essential hypertension Qualified Code(s): I10 - Essential (primary) hypertension Is this a current diagnosis for this admission?: Yes (4) HLD (hyperlipidemia) Qualifiers: Hyperlipidemia type: unspecified Qualified Code(s): E78.5 - Hyperlipidemia , unspecified Is this a current diagnosis for this admission?: Yes (5) Coronary artery disease Qualifiers: Coronary Disease-Associated Artery/Lesion type: unspecified vessel or lesion type [place] vs. transplanted heart: [place] heart Associated angina: angina presence unspecified Qualified Code(s): I25.10 - Atherosclerotic heart disease of [place] coronary artery without angina pectoris Is this a current diagnosis for this admission?: Yes (6) Old [place] (myocardial infarction) Is this a current diagnosis for this admission?: Yes (7) GERD (gastroesophageal reflux disease) Qualifiers: Esophagitis presence: without esophagitis Qualified Code(s): K21.9 - Gastro -esophageal reflux disease without esophagitis Is this a current diagnosis for this admission?: Yes - Time Time Spent with patient: 25-34 minutes Medications reviewed and adjusted accordingly: Yes Anticipated discharge: Home with Homehealth Within: Other - Inpatient Certification Based on my medical assessment, after consideration of the patient's comorbidities, presenting symptoms, or acuity I expect that the services needed warrant INPATIENT care.: Yes I certify that my determination is in accordance with my understanding of Medicare's requirements for reasonable and necessary INPATIENT services [42 CFR 412.3e].: Yes Medical Necessity: Need Close Monitoring Due to Risk of Patient Decompensation, Need For IV Fluids, Need For Continuous Telemetry Monitoring, Need for IV Antibiotics, Risk of Complication if Not Cared For in Hospital 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 Follow up om urine culture findings.
[2018-04-07] MEDS: CEFTRIAXONE SODIUM 1,000 MG in NORMAL SALINE 50 ML IV SCH (13:59)
[2018-04-07] MEDS: DONEPEZIL HCL 5 MG TABLET PO SCH (22:44)
[2018-04-07] MEDS: ATORVASTATIN CALCIUM 10 MG TABLET PO SCH (22:45)
[2018-04-08] MEDS: OXYCODONE-ACETAMINOPHEN 5-325 MG TABLET PO PRN (05:36)
[2018-04-08] MEDS: DULOXETINE HCL 30 MG CAPSULE.DR PO SCH (09:16)
[2018-04-08] MEDS: ASPIRIN 81 MG TABLET, CHEWABLE PO SCH (09:16)
[2018-04-08] MEDS: FAMOTIDINE 20 MG TABLET PO SCH (09:16)
[2018-04-08] MEDS: CLOPIDOGREL BISULFATE 75 MG TABLET PO SCH (09:17)
[2018-04-08] MEDS: HYDROCHLOROTHIAZIDE 12.5 MG TABLET PO SCH (09:18)
[2018-04-08] MEDS: CARVEDILOL 3.125 MG TABLET PO SCH (09:18)
[2018-04-08] MEDS: VALSARTAN 40 MG TABLET PO SCH (09:25)
[2018-04-08] MEDS: ENOXAPARIN SODIUM INJ 30 MG/0.3 ML DISP.SYRIN SUBCUT SCH (09:29)
--- NOTE | 2018-04-08 12:39 | PDOC DISCHARGE SUMMARY ---
General - Admit/Disc Date/PCP Admission Date/Primary Care Provider: 04/05/18 12:35 STEVEN PÉREZ MD Discharge Date: 04/08/18 - Discharge Diagnosis (1) Syncope, vasovagal Is this a current diagnosis for this admission?: Yes (2) Probable sepsis Is this a current diagnosis for this admission?: Yes Summary: unknown bacterial source. Urine culture revealed urogenital josue. (3) HTN (hypertension) Is this a current diagnosis for this admission?: Yes (4) HLD (hyperlipidemia) Is this a current diagnosis for this admission?: Yes (5) Coronary artery disease Is this a current diagnosis for this admission?: Yes (6) Old [place] (myocardial infarction) Is this a current diagnosis for this admission?: Yes (7) GERD (gastroesophageal reflux disease) Is this a current diagnosis for this admission?: Yes - Additional Information Resuscitation Status: Full Code Discharge Diet: Cardiac Discharge Activity: Activity As Tolerated Home Medications: Albuterol Sulfate [Ventolin Hfa] 2 puff IH Q4HP PRN 11/19/17 Aspirin [Aspirin 81 mg Chewable Tablet] 81 mg PO DAILY 11/19/17 Buspirone HCl [Buspar 15 mg Tablet] 7.5 mg PO BID 11/19/17 Carvedilol [Coreg 3.125 mg Tablet] 3.125 mg PO Q12 11/19/17 Clopidogrel Bisulfate [Plavix 75 mg Tablet] 75 mg PO DAILY 11/19/17 Donepezil HCl [Aricept] 10 mg PO QHS 11/19/17 Oxycodone HCl/Acetaminophen [Percocet 10-325 mg Tablet] 1 tab PO Q6HP PRN Pravastatin Sodium [Pravachol] 40 mg PO DAILY 11/19/17 Ranitidine HCl [Zantac 150 mg Tablet] 150 mg PO BID 11/19/17 Duloxetine HCl [Cymbalta] 30 mg PO DAILY 04/04/18 Losartan/Hydrochlorothiazide [Losartan-Hctz 50-12.5 mg Tab] 1 tab PO DAILY 04/04 Lubiprostone [Amitiza 24 Mcg Capsule] 24 mcg PO DAILYP PRN 04/04/18 Nitroglycerin [Nitrostat 0.4 mg (1/150 Gr) Tabs 25/Bottle] 1 tab PO DAILYP PRN 04/04/18 Valsartan [Diovan 40 mg Tablet] 40 mg PO Q12 04/04/18 History of Present Illness History of Present Illness: JERRY PELAEZ is a 87 year old male. He came to the emergency room for evaluation of syncope, he had episode of loss of consciousness last night while he was having a bowel movement. He was seen in the emergency room and evaluated he also complained of atypical chest pain Hospital Course Hospital Course: Patient was managed as a case of probable UTI with vasovagal syncope. His leukocytosis with left shift did resolved. His urine culture revealed normal urogenital josue. No recurrent syncope episode during hospitalization. His monitoring analyst was unrevealing during his hospital stay. He will be discharged home with home health agency services including visiting nurse, personal lines insurance advisor and physical therapy for rehabilitation and home safety check. He will follow up with Dr. Pérez as instructed upon discharge. Physical Exam Vital Signs: Temp Pulse Resp BP Pulse Ox 97.9 F 75 16 128/72 H 98 04/08/18 07:19 04/08/18 07:19 04/08/18 07:19 04/08/18 07:19 04/08/18 07:19 Intake & Output 04/07/18 04/08/18 04/09/18 06:59 06:59 06:59 Intake Total 1153 805 Output Total 1930 900 Balance -777 -95 Weight 81.4 kg 80.8 kg Physical Exam: General appearance: PRESENT: no acute distress Head exam: PRESENT: atraumatic, normocephalic Ear exam: PRESENT: normal external ear exam, other - some degree of hearing impairment Mouth exam: PRESENT: moist Respiratory exam: PRESENT: clear to auscultation alicia Cardiovascular exam: PRESENT: RRR. ABSENT: diastolic murmur, rubs, systolic murmur Vascular exam: ABSENT: pallor GI/Abdominal exam: PRESENT: normal bowel sounds, soft. ABSENT: distended, guarding, mass, organomegaly, rebound, tenderness Extremities exam: ABSENT: pedal edema Musculoskeletal exam: PRESENT: deformity - related to arthritis involvement in multiple joints. Neurological exam: PRESENT: alert, awake - and appropriate in responses Psychiatric exam: PRESENT: appropriate affect, normal mood. ABSENT: homicidal ideation, suicidal ideation Skin exam: PRESENT: dry, warm Results Laboratory Results: 04/07/18 05:39 04/07/18 05:39 04/05/18 13:50 Clean Catch Midstream Urine Culture - Final Mixed Urogenital Josue 04/05/18 04/05/18 04/05/18 12:55 12:55 21:00 Creatine Kinase 98 95 CK-MB (CK-2) 1.05 Troponin I < 0.012 04/05/18 21:00 Creatine Kinase CK-MB (CK-2) 1.02 Troponin I < 0.012 Impressions: Chest X-Ray 04/04/18 12:36 IMPRESSION: NO ACUTE RADIOGRAPHIC FINDING IN THE CHEST. Qualifiers - * PATIENT BEING DISCHARGED WITH ANY OF THE FOLLOWING DIAGNOSIS: No Plan Discharge Plan: Discharge home today with home health agency services and 3-in-1 bedside commode. Follow up with Dr Pérez as instructed upon discharge.
[2018-04-08] MEDS ORDERED: BUSPIRONE HCL 10 MG TABLET PO SCH (14:00)
[2018-04-08 14:05] VITALS: BP 111/62
== END 2018-04-08 14:30 | disposition home health service (06) | DRG 312 ==
LOC: ER 12:14 → EH 16:36 → 4S 18:37 → OBSVTOIN 04-05 12:35
PROVIDERS: ADMIT Internal Medicine; ATTEND Internal Medicine
DX: R55 Syncope and collapse (principal); N39.0 Urinary tract infection, site not specified; R07.89 Other chest pain; N28.89 Other specified disorders of kidney and ureter; E78.5 Hyperlipidemia, unspecified; I10 Essential (primary) hypertension; K21.9 Gastro-esophageal reflux disease without esophagitis; M19.90 Unspecified osteoarthritis, unspecified site; Z79.82 Long term (current) use of aspirin; Z79.02 Long term (current) use of antithrombotics/antiplatelets; Z79.899 Other long term (current) drug therapy; I25.2 Old myocardial infarction; Z85.528 Personal history of other malignant neoplasm of kidney; Z95.5 Presence of coronary angioplasty implant and graft; Z88.2 Allergy status to sulfonamides
CPT/HCPCS: 36415; 71046; 80053; 81001; 82550; 82553; 82803; 84484; 85025; 85610; 87086; 93005; 93010; 96360; 96361; 99285; G0378; J0696; J1650; J3490; J7030

== ENCOUNTER 2018-05-11 10:35 | Emergency (ER) | payer MEDICARE, MEDICAID ==
[~2018-05-11 10:35] MED LIST: ASPIRIN 81 MG TABLET, CHEWABLE PO ONE
--- NOTE | 2018-05-11 11:02 | ER Document Report ---
ED General - General Chief Complaint: Chest Pain Stated Complaint: CHEST PAIN Time Seen by Provider: 05/11/18 10:57 TRAVEL OUTSIDE OF THE [place] IN LAST 30 DAYS: No - HPI Notes: Patient is an 87-year-old male with a history of COPD (occ O2 use at home 2L via [place]), CAD (4 stents), hyperlipidemia, GERD who presents to the ED complaining of intermittent chest pain that began a couple days ago. Patient states that he had recurrence of his chest pain this morning when he started taking his medicines. Patient states that the pain would radiate into his left arm which prompted him to come to the emergency department. Patient states that he currently is pain-free. Patient states that he did have associated shortness of breath and some dizziness. Patient states that he had been eating and drinking without any difficulties. He is urinating normally and having normal bowel movements. Denies any headache, fever, neck pain, changes in vision/speech/mentation/hearing, URI, sore throat, palpitations, syncope, cough , wheeze, dyspnea, abdominal pain, nausea/vomiting/diarrhea, urinary retention, dysuria, hematuria, loss of control of bowel or bladder, numbness/tingling, saddle anesthesia, muscle paralysis/weakness, or rash. - Related Data Allergies/Adverse Reactions: Sulfa (Sulfonamide Antibiotics) Allergy (Unknown, Verified 01/13/18 03:08) RASH Past Medical History - Social History Smoking Status: Former Smoker Chew tobacco use (# tins/day): No Frequency of alcohol use: None Drug Abuse: None Family History: Reviewed & Not Pertinent, CAD Patient has suicidal ideation: No Patient has homicidal ideation: No - Past Medical History Cardiac Medical History: Reports: Hx Coronary Artery Disease, Hx Heart Attack - x4, Hx Hypercholesterolemia, Hx Hypertension Denies: Hx Atrial Fibrillation, Hx Congestive Heart Failure Pulmonary Medical History: Reports: Hx Asthma, Hx Bronchitis, Hx Pneumonia Denies: Hx COPD, Hx Tuberculosis Neurological Medical History: Reports: Hx Cerebrovascular Accident - L SIDE WEAKNESS. Denies: Hx Seizures Renal/ Medical History: Denies: Hx End Stage Renal Disease, Hx Kidney Stones, Hx Peritoneal Dialysis Malignancy Medical History: Reports Hx Renal (Kidney) Cancer GI Medical History: Reports: Hx Gastroesophageal Reflux Disease, Hx Hepatitis. Denies: Hx Hiatal Hernia, Hx Ulcer Musculoskeletal Medical History: Reports Hx Arthritis Skin Medical History: Reports Hx MRSA Psychiatric Medical History: Reports: Hx Anxiety, Hx Dementia, Hx Depression Denies: Hx Bipolar Disorder, Hx Schizophrenia Traumatic Medical History: Reports: Hx Fractures Infectious Medical History: Reports: Hx Hepatitis Past Surgical History: Reports: Hx Abdominal Surgery, Hx Appendectomy, Hx Cardiac Catheterization, Hx Cardiac Surgery - x4, Hx Coronary Stent - X 4. Denies: Hx Bowel Surgery, Hx Cholecystectomy, Hx Open Heart Surgery, Hx Tonsillectomy - Immunizations Immunizations up to date: Yes Hx Diphtheria, Pertussis, Tetanus Vaccination: No Hx Pneumococcal Vaccination: 08/05/10 Review of Systems - Review of Systems -: Yes All other systems reviewed and negative Physical Exam - Vital signs Vitals: Pulse Ox 99 05/11/18 10:35 - Notes Notes: PHYSICAL EXAMINATION: GENERAL: Well-appearing, well-nourished and in no acute distress. Answers questions appropriately. HEAD: Atraumatic, normocephalic. EYES: Pupils equal round and reactive to light, extraocular movements intact, sclera anicteric, conjunctiva are normal. ENT: Nares patent and without discharge. oropharynx clear without exudates. No tonsilar hypertrophy or erythema. Moist mucous membranes. NECK: Normal range of motion, supple without lymphadenopathy LUNGS: Breath sounds clear to auscultation bilaterally and equal. No wheezes rales or rhonchi. HEART: Regular rate and rhythm without murmurs, rubs, gallops. ABDOMEN: Soft, nontender, nondistended abdomen. No guarding, no rebound. No masses appreciated. Normal bowel sounds present. No CVA tenderness bilaterally. Musculoskeletal: FROM to passive/active. Strength 5+/5. Ne neg. No asymmetry to LE's. Extremities: No cyanosis, clubbing, or edema b/l. Peripheral pulses 2+. Capillary refill less than 3 seconds. NEUROLOGICAL: Normal speech, normal gait. PSYCH: Normal mood, normal affect. SKIN: Warm, Dry, normal turgor, no rashes or lesions noted. Course - Re-evaluation Re-evalutation: 05/11/18 15:25 Patient is an afebrile, well-hydrated 87-year-old male who presents to the ED with atypical chest pain. Vitals are acceptable without any significant tachycardia, tachypnea, or hypoxia. PE is otherwise unremarkable. Patient is nontoxic-appearing and is tolerating p.o. without any difficulties. Pt is currently asymptomatic. CBC, CMP, EKG/cardiac enzymes 2, chest x-ray are all unremarkable for any acute pathology. Patient has a heart score of 4, Wells score of 0. Patient does not have any chest pain, dyspnea, or shortness of breath. Patient's presentation and symptomatology creates lower suspicion for ACS, PE, pneumothorax, pericarditis, dissection, respiratory compromise, severe dehydration, sepsis, meningitis, or other systemic emergent condition at this time. Patient is aware that his condition can change from initial presentation and he needs to monitor symptoms closely and seek medical attention for any acute changes. Pt is feeling better and would like to go home. I did call and speak with Dr. Pérez who stated that the patient is always being seen for chest pain with unremarkable workups and he can follow-up in the office this week. Recommend conservative measures for symptoms. Recheck with your PCM in 1 -2 days. Consider consult with Cardiology. Return to the ED with any worsening/ concerning symptoms otherwise as reviewed in discharge. Patient is in agreement. - Vital Signs Vital signs: Temp Pulse Resp BP Pulse Ox 10 L 120/80 94 05/11/18 12:01 05/11/18 12:01 05/11/18 12:01 - Laboratory Result Diagrams: 05/11/18 10:49 05/11/18 10:49 Laboratory results interpreted by me: 05/11/18 10:49 Glucose 111 H ALT 18 L Discharge - Discharge Clinical Impression: Chest pain of uncertain etiology Condition: Stable Disposition: HOME, SELF-CARE Instructions: Chest Pain of Unclear Cause ([facility]) Additional Instructions: Maintain adequate fluid and food intake Take home medications as directed Low sodium/fat diet Monitor blood pressure daily and keep a log Monitor symptoms for any acute changes Recheck with your PCM in 1-2 days Consider a follow-up with cardiology Return to the ED with any worsening symptoms and/or development of fever, headache, chest pain, palpitations, syncope, shortness of breath, trouble breathing, abdominal pain, n/v/d, blood in stool/urine, loss of control of bowel /bladder, urinary retention, muscle weakness/paralysis, numbness/tingling, or other worsening symptoms that are concerning to you. Referrals: STEVEN PÉREZ MD [Primary Care Provider] - Follow up tomorrow
[2018-05-11 11:14] LABS: ABSOLUTE BASOPHILS # (AUTO) 0.1 10^3/uL (0.0-0.2); ABSOLUTE EOSINOPHILS # (AUTO) 0.3 10^3/uL (0.0-0.6); ABSOLUTE MONOCYTES (AUTO) 0.8 10^3/uL (0.1-1.4); ABSOLUTE NEUT (AUTO) 5.3 10^3/uL (1.7-8.2); BASOPHILS % (AUTO) 0.9 % (0-2); EOSINOPHILS % (AUTO) 3.7 % (0-6); HEMATOCRIT 40.4 % (37.9-51.0); HEMOGLOBIN 14.2 g/dL (13.5-17.0); LYMPHOCYTES % (AUTO) 23.6 % (13-45); MEAN CORPUSCULAR HEMOGLOBIN 32.1 pg (27.0-33.4); MEAN CORPUSCULAR VOLUME 92 fl (80-97); MONOCYTES % (AUTO) 9.4 % (3-13); PLATELET COUNT 313 10^3/uL (150-450); RED BLOOD COUNT 4.42 10^6/uL (4.35-5.55); RED CELL DISTRIBUTION WIDTH 13.7 % (11.5-14.0); SEGMENTED NEUTROPHILS % (AUTO) 62.4 % (42-78); TOTAL CELLS COUNTED % (AUTO) 100 %; WHITE BLOOD COUNT 8.5 10^3/uL (4.0-10.5)
[2018-05-11 11:27] LABS: INTERNATIONAL RATION (INR) 1.03; PROTHROMBIN TIME 14.1 SEC (11.4-15.4)
[2018-05-11 11:28] LABS: PARTIAL THROMBOPLASTIN TIME 32.6 SEC (23.5-35.8)
[2018-05-11 11:43] LABS: ALANINE AMINOTRANSFERASE 18 U/L (21-72); ALBUMIN 3.9 g/dL (3.5-5.0); ALKALINE PHOSPHATASE 81 U/L (38-126); ANION GAP 7 (5-19); ASPARTATE AMINO TRANSFERASE 23 U/L (17-59); BILIRUBIN,DIRECT 0.3 mg/dL (0.0-0.4); BLOOD UREA NITROGEN 9 mg/dL (7-20); CALCIUM 8.8 mg/dL (8.4-10.2); CARBON DIOXIDE 26 mmol/L (22-30); CHLORIDE 106 mmol/L (98-107); CREATINE KINASE 63 U/L (55-170); GLUCOSE 111 mg/dL (75-110); POTASSIUM 3.8 mmol/L (3.6-5.0); SODIUM 139.1 mmol/L (137-145); TOTAL PROTEIN 7.4 g/dL (6.3-8.2)
[2018-05-11 11:52] LABS: CREATINE KINASE MB 1.16 ng/mL (<4.55)
[2018-05-11 11:53] LABS: TROPONIN I < 0.012 ng/mL
--- NOTE | 2018-05-11 11:55 | RADIOLOGY REPORT (SQ) ---
EXAM DESCRIPTION: CHEST SINGLE VIEW COMPLETED DATE/TIME: 05/11/2018 11:23 am REASON FOR STUDY: Shortness of breath COMPARISON: 04/04/2018 and earlier EXAM PARAMETERS: NUMBER OF VIEWS: One view. TECHNIQUE: Single frontal radiographic view of the chest acquired. RADIATION DOSE: NA LIMITATIONS: None. FINDINGS: LUNGS AND PLEURA: No opacities, masses or pneumothorax. No pleural effusion. MEDIASTINUM AND HILAR STRUCTURES: No masses. Contour normal. HEART AND VASCULAR STRUCTURES: Heart normal in size. Normal vasculature. BONES: No acute findings. HARDWARE: None in the chest. OTHER: No other significant finding. IMPRESSION: NO ACUTE RADIOGRAPHIC FINDING IN THE CHEST. TECHNICAL DOCUMENTATION: JOB ID: [id number] [employer]- All Rights Reserved Reading location - IP/workstation name: [email or web address]
[2018-05-11 15:32] VITALS: BP 152/82
--- NOTE | 2018-05-11 19:00 | EKG REPORT ---
SEVERITY:- NORMAL ECG - SINUS RHYTHM : Confirmed by: Austin Mcnulty 11-May-2018 18:59:44
== END 2018-05-11 15:46 | disposition home or self-care (01) ==
LOC: ER 10:35
DX: R07.9 Chest pain, unspecified (principal); J44.9 Chronic obstructive pulmonary disease, unspecified; I25.10 Atherosclerotic heart disease of native coronary artery without angina pectoris; E78.00 Pure hypercholesterolemia, unspecified; I11.0 Hypertensive heart disease with heart failure; Z88.2 Allergy status to sulfonamides; I25.2 Old myocardial infarction; Z86.14 Personal history of Methicillin resistant Staphylococcus aureus infection
CPT/HCPCS: 93005; 99285; 36415; 82553; 82550; 85025; 85610; 85730; 80053; 84484; 71045; 93010; A9270

== ENCOUNTER → 2018-05-22 | Outpatient (CLI) | payer MEDICARE, MEDICAID | LOC: LAB 10:20 | PROVIDERS: ATTEND Urology | DX: C64.9 Malignant neoplasm of unspecified kidney, except renal pelvis (principal) | CPT/HCPCS: 36415; 82565 ==

== ENCOUNTER 2018-07-24 14:53 | Observation (INO) | payer MEDICARE, MEDICAID ==
--- NOTE | 2018-07-24 15:16 | ER Document Report ---
ED General - General Chief Complaint: Chest Pressure Stated Complaint: CHEST PAINS Time Seen by Provider: 07/24/18 15:15 Mode of Arrival: Medic Information source: Patient Notes: 87-year-old male brought to emergency department by EMS for chest pain that is been present for the last 10 hours. Patient states that he woke up at 4 AM with a dull aching sensation in the left chest that radiated to the left arm. He had associated nausea but denies any vomiting or diaphoresis. He denies any s hortness of breath. Patient called EMS and he was given aspirin and 1 nitro. He states that he is completely pain-free right now. He has no complaints in the emergency department. Patient does have a history of coronary artery disease with 4 stents placed. He is on Plavix. He has hypertension, hyperlipidemia and is a former smoker. Has a family history of coronary artery disease. 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 He states that his stents were placed probably 5 years ago. He follows up with Dr. Roberts. TRAVEL OUTSIDE OF THE [place] IN LAST 30 DAYS: No - HPI Onset: This morning Onset/Duration: Gradual Quality of pain: Achy Severity: Moderate Associated symptoms: None Exacerbated by: Denies Relieved by: Other - Aspirin and nitro Similar symptoms previously: Yes Recently seen / treated by doctor: Yes - Related Data Allergies/Adverse Reactions: Sulfa (Sulfonamide Antibiotics) Allergy (Unknown, Verified 07/24/18 15:14) RASH Past Medical History - General Information source: Patient - Social History Smoking Status: Former Smoker Chew tobacco use (# tins/day): No Frequency of alcohol use: former Drug Abuse: None Family History: Reviewed & Not Pertinent, CAD Patient has suicidal ideation: No Patient has homicidal ideation: No - Past Medical History Cardiac Medical History: Reports: Hx Coronary Artery Disease, Hx Heart Attack - x4, Hx Hypercholesterolemia, Hx Hypertension Denies: Hx Atrial Fibrillation, Hx Congestive Heart Failure Pulmonary Medical History: Reports: Hx Asthma, Hx Bronchitis, Hx Pneumonia Denies: Hx COPD, Hx Tuberculosis Neurological Medical History: Reports: Hx Cerebrovascular Accident - L SIDE WEAKNESS. Denies: Hx Seizures Renal/ Medical History: Denies: Hx End Stage Renal Disease, Hx Kidney Stones, Hx Peritoneal Dialysis Malignancy Medical History: Reports Hx Renal (Kidney) Cancer GI Medical History: Reports: Hx Gastroesophageal Reflux Disease, Hx Hepatitis. Denies: Hx Hiatal Hernia, Hx Ulcer Musculoskeletal Medical History: Reports Hx Arthritis Skin Medical History: Reports Hx MRSA Psychiatric Medical History: Reports: Hx Anxiety, Hx Dementia, Hx Depression Denies: Hx Bipolar Disorder, Hx Schizophrenia Traumatic Medical History: Reports: Hx Fractures Infectious Medical History: Reports: Hx Hepatitis Past Surgical History: Reports: Hx Abdominal Surgery, Hx Appendectomy, Hx Cardiac Catheterization, Hx Cardiac Surgery - x4, Hx Coronary Stent - X 4. Denies: Hx Bowel Surgery, Hx Cholecystectomy, Hx Open Heart Surgery, Hx Tonsillectomy - Immunizations Immunizations up to date: Yes Hx Diphtheria, Pertussis, Tetanus Vaccination: No Hx Pneumococcal Vaccination: 08/05/10 Review of Systems - Review of Systems Constitutional: No symptoms reported EENT: No symptoms reported Cardiovascular: Chest pain Respiratory: No symptoms reported Gastrointestinal: No symptoms reported Genitourinary: No symptoms reported Male Genitourinary: No symptoms reported Musculoskeletal: No symptoms reported Skin: No symptoms reported Neurological/Psychological: No symptoms reported -: Yes All other systems reviewed and negative Physical Exam - Vital signs Vitals: Temp Pulse Resp BP Pulse Ox 98.4 F 83 13 117/77 97 07/24/18 15:03 07/24/18 15:03 07/24/18 15:03 07/24/18 15:03 07/24/18 15:03 - Notes Notes: PHYSICAL EXAMINATION: GENERAL: Well-appearing, well-nourished and in no acute distress. HEAD: Atraumatic, normocephalic. EYES: Pupils equal round and reactive to light, extraocular movements intact, sclera anicteric, conjunctiva are normal. ENT: Nares patent, oropharynx clear without exudates. Moist mucous membranes. NECK: Normal range of motion, supple without lymphadenopathy LUNGS: Breath sounds clear to auscultation bilaterally and equal. No wheezes rales or rhonchi. HEART: Regular rate and rhythm without murmurs ABDOMEN: Soft, nontender, nondistended abdomen. No guarding, no rebound. No masses appreciated. Musculoskeletal: Normal range of motion, no pitting or edema. No cyanosis. NEUROLOGICAL: Cranial nerves grossly intact. Normal speech, normal gait. Brenna l sensory, motor exams PSYCH: Normal mood, normal affect. SKIN: Warm, Dry, normal turgor, no rashes or lesions noted. Course - Re-evaluation Re-evalutation: 07/24/18 15:15 EKG: Ventricular rate 83, [place] interval 152, QRS duration 84, QTc 423, sinus rhythm, no ST segment elevation. 07/24/18 17:16 Patient has a heart score 4. Labs and imaging obtained. Troponin is normal. EKG does not show any ST segment elevation. Chest x-ray does not show an acute process. Patient is currently asymptomatic. Patient requesting admission as he continues to have the chest pain intermittently. I spoke with Dr. Roberts. He is agreeable with admitting the patient. Patient is currently stable. - Vital Signs Vital signs: Temp Pulse Resp BP Pulse Ox 98.4 F 83 13 117/77 98 07/24/18 15:03 07/24/18 15:03 07/24/18 15:04 07/24/18 15:04 07/24/18 15:15 - Laboratory Result Diagrams: 07/24/18 15:17 07/24/18 15:17 Laboratory results interpreted by me: 07/24/18 07/24/18 15:17 15:17 RBC 4.23 L Hgb 13.4 L Glucose 182 H ALT 20 L Discharge - Discharge Clinical Impression: Chest pain Qualifiers: Chest pain type: unspecified Qualified Code(s): R07.9 - Chest pain, unspecified Condition: Good Disposition: ADMITTED OBSERVATION Admitting Provider: Alejandra Unit Admitted: Telemetry Referrals: LORETTA HUNTER MD [Primary Care Provider] - Follow up as needed
--- NOTE | 2018-07-24 15:34 | RADIOLOGY REPORT (SQ) ---
EXAM DESCRIPTION: CHEST SINGLE VIEW COMPLETED DATE/TIME: 07/24/2018 3:22 pm REASON FOR STUDY: BED 12 CP COMPARISON: 05/11/2018. EXAM PARAMETERS: NUMBER OF VIEWS: One view. TECHNIQUE: Single frontal radiographic view of the chest acquired. RADIATION DOSE: NA LIMITATIONS: None. FINDINGS: LUNGS AND PLEURA: No opacities, masses or pneumothorax. No pleural effusion. MEDIASTINUM AND HILAR STRUCTURES: No masses. Contour normal. HEART AND VASCULAR STRUCTURES: Heart normal in size. Normal vasculature. BONES: No acute findings. HARDWARE: None in the chest. OTHER: No other significant finding. IMPRESSION: NO ACUTE RADIOGRAPHIC FINDING IN THE CHEST. TECHNICAL DOCUMENTATION: JOB ID: [id number] [employer]- All Rights Reserved Reading location - IP/workstation name: [email or web address]
[2018-07-24 15:40] LABS: ABSOLUTE BASOPHILS # (AUTO) 0.1 10^3/uL (0.0-0.2); ABSOLUTE EOSINOPHILS # (AUTO) 0.3 10^3/uL (0.0-0.6); ABSOLUTE LYMPHOCYTES (AUTO) 1.4 10^3/uL (0.5-4.7); ABSOLUTE MONOCYTES (AUTO) 0.6 10^3/uL (0.1-1.4); ABSOLUTE NEUT (AUTO) 5.4 10^3/uL (1.7-8.2); EOSINOPHILS % (AUTO) 3.7 % (0-6); HEMATOCRIT 38.5 % (37.9-51.0); HEMOGLOBIN 13.4 g/dL (13.5-17.0); LYMPHOCYTES % (AUTO) 18.6 % (13-45); MEAN CORPUSCULAR HEMOGLOBIN 31.6 pg (27.0-33.4); MEAN CORPUSCULAR HGB CONC 34.7 g/dL (32.0-36.0); MEAN CORPUSCULAR VOLUME 91 fl (80-97); MONOCYTES % (AUTO) 7.6 % (3-13); PLATELET COUNT 291 10^3/uL (150-450); RED BLOOD COUNT 4.23 10^6/uL (4.35-5.55); RED CELL DISTRIBUTION WIDTH 13.5 % (11.5-14.0); SEGMENTED NEUTROPHILS % (AUTO) 69.1 % (42-78); TOTAL CELLS COUNTED % (AUTO) 100 %; WHITE BLOOD COUNT 7.8 10^3/uL (4.0-10.5)
[2018-07-24 16:01] LABS: ALANINE AMINOTRANSFERASE 20 U/L (21-72); ALBUMIN 3.5 g/dL (3.5-5.0); ALKALINE PHOSPHATASE 82 U/L (38-126); ANION GAP 8 (5-19); ASPARTATE AMINO TRANSFERASE 24 U/L (17-59); BILIRUBIN,DIRECT 0.2 mg/dL (0.0-0.4); BILIRUBIN,TOTAL 0.6 mg/dL (0.2-1.3); BLOOD UREA NITROGEN 17 mg/dL (7-20); CALCIUM 8.8 mg/dL (8.4-10.2); CARBON DIOXIDE 27 mmol/L (22-30); CHLORIDE 104 mmol/L (98-107); CREATINE KINASE 80 U/L (55-170); GLUCOSE 182 mg/dL (75-110); SODIUM 138.5 mmol/L (137-145); TOTAL PROTEIN 6.5 g/dL (6.3-8.2)
[2018-07-24 16:11] LABS: CREATINE KINASE MB 0.68 ng/mL (<4.55)
[2018-07-24 16:13] LABS: TROPONIN I < 0.012 ng/mL
--- NOTE | 2018-07-24 18:17 | EKG REPORT ---
SEVERITY:- BORDERLINE ECG - SINUS RHYTHM BORDERLINE T ABNORMALITIES, ANT-LAT LEADS : Confirmed by: Jeffrey Fair MD 24-Jul-2018 18:16:35
[2018-07-24] MEDS ORDERED: ALBUTEROL SULFATE HFA (90 MCG/PUFF) 200 PUFF/8.5 GM MDI IH PRN (19:43)
--- NOTE | 2018-07-24 20:05 | PDOC H&P ---
History of Present Illness Admission Date/PCP: 07/24/18 17:35 LORETTA HUNTER MD History of Present Illness: JERRY PELAEZ is a 87 year old male, He has a history of ischemic heart dis ease status post coronary artery stenting he came to the Emergency room for evaluation of atypical chest pain. He has had multiple ED visits for Evaluation of chest pains. Patient said he felt he needed IV fluid because he was dehydrated, he has not been drinking fluids regularly Past Medical History Cardiac Medical History: Reports: Coronary Artery Disease, Myocardial Infarction - x4, Hyperlipidema, Hypertension Pulmonary Medical History: Reports: Asthma, Bronchitis, Pneumonia Malignancy Medical History: Reports: Renal (Kidney) Cancer GI Medical History: Reports: Gastroesophageal Reflux Disease, Hepatitis Musculoskeltal Medical History: Reports: Arthritis Psychiatric Medical History: Reports: Dementia, Depression Past Surgical History Past Surgical History: Reports: Appendectomy, Cardiac Catheterization, Coronary Stent - X 4 Social History Smoking Status: Former Smoker Frequency of Alcohol Use: None Hx Recreational Drug Use: No Drugs: None Hx Prescription Drug Abuse: No - Advance Directive Resuscitation Status: Full Code Family History Family History: Reviewed & Not Pertinent, CAD Parental Family History Reviewed: Yes Children Family History Reviewed: Yes Sibling(s) Family History Reviewed.: Yes Medication/Allergy Home Medications: Albuterol Sulfate [Proair HFA Inhalation Aerosol 8.5 gm MDI] 2 puff IH Q6HP PRN 07/24/18 Aspirin [Aspirin 81 mg Chewable Tablet] 81 mg PO QAM 07/24/18 Buspirone HCl [Buspar 15 mg Tablet] 7.5 mg PO BID 07/24/18 Carvedilol [Coreg 3.125 mg Tablet] 3.125 mg PO Q12 07/24/18 Donepezil HCl [Aricept] 10 mg PO QPM 07/24/18 Duloxetine HCl [Cymbalta] 30 mg PO QAM 07/24/18 Losartan/Hydrochlorothiazide [Hyzaar 50-12.5 Tablet] 1 tab PO QAM 07/24/18 Pravastatin Sodium [Pravachol] 40 mg PO QHS 07/24/18 Ranitidine HCl [Zantac 150 mg Tablet] 150 mg PO BID 07/24/18 Allergies/Adverse Reactions: Sulfa (Sulfonamide Antibiotics) Allergy (Unknown, Verified 07/24/18 15:14) RASH Review of Systems Constitutional: ABSENT: chills, fever(s), headache(s), weight gain, weight loss Eyes: ABSENT: visual disturbances Ears: ABSENT: hearing changes Cardiovascular: PRESENT: chest pain. ABSENT: dyspnea on exertion, edema, orthropnea, palpitations Respiratory: ABSENT: cough, hemoptysis Gastrointestinal: ABSENT: abdominal pain, constipation, diarrhea, hematemesis, hematochezia, nausea, vomiting Genitourinary: ABSENT: dysuria, hematuria Musculoskeletal: ABSENT: joint swelling Integumentary: ABSENT: rash, wounds Neurological: ABSENT: abnormal gait, abnormal speech, confusion, dizziness, focal weakness, syncope Psychiatric: ABSENT: anxiety, depression, homidical ideation, suicidal ideation Endocrine: ABSENT: cold intolerance, heat intolerance, menstrual abnormalities, polydipsia, polyuria Hematologic/Lymphatic: ABSENT: easy bleeding, easy bruising, lymphadenopathy Physical Exam Vital Signs: Temp Pulse Resp BP Pulse Ox 98.1 F 71 16 122/57 L 100 07/24/18 18:49 07/24/18 19:00 07/24/18 18:49 07/24/18 18:49 07/24/18 18:49 Intake & Output 07/23/18 07/24/18 07/25/18 06:59 06:59 06:59 Weight 83.6 kg General appearance: PRESENT: no acute distress, well-developed, well-nourished Head exam: PRESENT: atraumatic, normocephalic Eye exam: PRESENT: conjunctiva pink, EOMI, PERRLA Ear exam: PRESENT: normal external ear exam Mouth exam: PRESENT: moist, tongue midline Neck exam: PRESENT: full ROM Respiratory exam: PRESENT: clear to auscultation alicia Cardiovascular exam: PRESENT: RRR, +S1, +S2 Vascular exam: PRESENT: normal capillary refill GI/Abdominal exam: PRESENT: normal bowel sounds, soft Rectal exam: PRESENT: deferred Neurological exam: PRESENT: alert, awake, oriented to person, oriented to place, oriented to time, oriented to situation, CN II-XII grossly intact Psychiatric exam: PRESENT: appropriate affect, normal mood Skin exam: PRESENT: dry, intact, warm Results Laboratory Results: 07/24/18 15:17 07/24/18 15:17 07/24/18 07/24/18 15:17 15:17 WBC 7.8 RBC 4.23 L Hgb 13.4 L Hct 38.5 MCV 91 MCH 31.6 MCHC 34.7 RDW 13.5 Plt Count 291 Seg Neutrophils % 69.1 Lymphocytes % 18.6 Monocytes % 7.6 Eosinophils % 3.7 Basophils % 1.0 Absolute Neutrophils 5.4 Absolute Lymphocytes 1.4 Absolute Monocytes 0.6 Absolute Eosinophils 0.3 Absolute Basophils 0.1 Sodium 138.5 Potassium 4.0 Chloride 104 Carbon Dioxide 27 Anion Gap 8 BUN 17 Creatinine 0.93 Est GFR ( Amer) > 60 Est GFR (Non-Af Amer) > 60 Glucose 182 H Calcium 8.8 Total Bilirubin 0.6 AST 24 ALT 20 L Alkaline Phosphatase 82 Total Protein 6.5 Albumin 3.5 07/24/18 07/24/18 15:17 15:17 Creatine Kinase 80 CK-MB (CK-2) 0.68 Troponin I < 0.012 Impressions: Chest X-Ray 07/24/18 14:55 IMPRESSION: NO ACUTE RADIOGRAPHIC FINDING IN THE CHEST. Assessment & Plan - Diagnosis (1) Chest pain Qualifiers: Chest pain type: unspecified Qualified Code(s): R07.9 - Chest pain, unspecified Is this a current diagnosis for this admission?: Yes (2) Coronary artery disease Qualifiers: Coronary Disease-Associated Artery/Lesion type: unspecified vessel or lesion type [place] vs. transplanted heart: [place] heart Associated angina: angina presence unspecified Qualified Code(s): I25.10 - Atherosclerotic heart disease of [place] coronary artery without angina pectoris Is this a current diagnosis for this admission?: Yes (3) HTN (hypertension) Qualifiers: Hypertension type: essential hypertension Qualified Code(s): I10 - Essential (primary) hypertension Is this a current diagnosis for this admission?: Yes
[2018-07-24 20:56] LABS: CREATINE KINASE MB 0.69 ng/mL (<4.55)
[2018-07-24 20:57] LABS: TROPONIN I < 0.012 ng/mL
[2018-07-24] MEDS ORDERED: ENOXAPARIN SODIUM INJ 40 MG/0.4 ML DISP.SYRIN SUBCUT ONE (21:00)
[2018-07-24] MEDS: ENOXAPARIN SODIUM INJ 40 MG/0.4 ML DISP.SYRIN SUBCUT SCH (21:58)
[2018-07-24] MEDS: DONEPEZIL HCL 5 MG TABLET PO SCH (21:59)
[2018-07-24] MEDS: CARVEDILOL 3.125 MG TABLET PO SCH (22:00)
[2018-07-24] MEDS: BUSPIRONE HCL 10 MG TABLET PO SCH (22:00)
[2018-07-24] MEDS: ATORVASTATIN CALCIUM 10 MG TABLET PO SCH (22:00)
[2018-07-24] MEDS: FAMOTIDINE 20 MG TABLET PO SCH (22:00)
[2018-07-24] MEDS ORDERED: (PENDING PHARMACY ID) (Pravastatin Sodium [Pravachol] 40 MG) PO SCH (22:00)
[2018-07-25] MEDS ORDERED: ACETAMINOPHEN 325 MG TABLET PO PRN (01:49)
[2018-07-25 02:46] LABS: CREATINE KINASE MB 0.78 ng/mL (<4.55)
[2018-07-25 02:48] LABS: TROPONIN I < 0.012 ng/mL
[2018-07-25] MEDS: BUSPIRONE HCL 10 MG TABLET PO SCH ×3 (05:44→22:22)
[2018-07-25] MEDS ORDERED: (PENDING PHARMACY ID) (Losartan/Hydrochlorothiazide [Hyzaar 50-12.5 Tablet] 1 TAB) PO SCH (08:00)
[2018-07-25] MEDS: ASPIRIN 81 MG TABLET, CHEWABLE PO SCH (08:32)
[2018-07-25] MEDS: DULOXETINE HCL 30 MG CAPSULE.DR PO SCH (08:32)
[2018-07-25] MEDS: LOSARTAN POTASSIUM 50 MG TABLET PO SCH (09:38)
[2018-07-25] MEDS: FAMOTIDINE 20 MG TABLET PO SCH ×2 (09:39→22:22)
[2018-07-25] MEDS: HYDROCHLOROTHIAZIDE 12.5 MG TABLET PO SCH (09:39)
[2018-07-25] MEDS: CARVEDILOL 3.125 MG TABLET PO SCH ×2 (09:39→22:22)
[2018-07-25] MEDS: ENOXAPARIN SODIUM INJ 40 MG/0.4 ML DISP.SYRIN SUBCUT SCH (09:40)
[2018-07-25] MEDS ORDERED: (PENDING PHARMACY ID) (Buspirone Hcl [Buspar 15 Mg Tablet] 7.5 MG) PO SCH (10:00)
[2018-07-25] MEDS ORDERED: (PENDING PHARMACY ID) (Ranitidine Hcl [Zantac 150 Mg Tablet] 150 MG) PO SCH (10:00)
[2018-07-25 10:04] LABS: CREATINE KINASE MB 0.79 ng/mL (<4.55)
[2018-07-25 10:06] LABS: TROPONIN I < 0.012 ng/mL
[2018-07-25] MEDS: DONEPEZIL HCL 5 MG TABLET PO SCH (17:44)
[2018-07-25] MEDS ORDERED: (PENDING PHARMACY ID) (Donepezil Hcl [Aricept] 10 MG) PO SCH (18:00)
[2018-07-25] MEDS: 1/2 NORMAL SALINE 1,000 ML IV PRN (19:20)
[2018-07-25] MEDS: ATORVASTATIN CALCIUM 10 MG TABLET PO SCH (22:22)
[2018-07-26] MEDS: BUSPIRONE HCL 10 MG TABLET PO SCH ×3 (05:19→21:12)
[2018-07-26] MEDS: ASPIRIN 81 MG TABLET, CHEWABLE PO SCH (08:08)
[2018-07-26] MEDS: DULOXETINE HCL 30 MG CAPSULE.DR PO SCH (08:08)
[2018-07-26] MEDS: ENOXAPARIN SODIUM INJ 40 MG/0.4 ML DISP.SYRIN SUBCUT SCH (09:42)
[2018-07-26] MEDS: FAMOTIDINE 20 MG TABLET PO SCH ×2 (09:43→21:13)
[2018-07-26] MEDS: LOSARTAN POTASSIUM 50 MG TABLET PO SCH (09:43)
[2018-07-26] MEDS: CARVEDILOL 3.125 MG TABLET PO SCH ×2 (09:43→21:13)
[2018-07-26] MEDS: HYDROCHLOROTHIAZIDE 12.5 MG TABLET PO SCH (09:43)
[2018-07-26] MEDS: 1/2 NORMAL SALINE 1,000 ML IV PRN (13:56)
[2018-07-26] MEDS: DONEPEZIL HCL 5 MG TABLET PO SCH (17:17)
--- NOTE | 2018-07-26 19:11 | PDOC DISCHARGE SUMMARY ---
General - Admit/Disc Date/PCP Admission Date/Primary Care Provider: 07/24/18 17:35 LORETTA HUNTER MD Discharge Date: 07/26/18 - Discharge Diagnosis (1) Chest pain Is this a current diagnosis for this admission?: Yes (2) Coronary artery disease Is this a current diagnosis for this admission?: Yes (3) HTN (hypertension) Is this a current diagnosis for this admission?: Yes - Additional Information Resuscitation Status: Full Code Home Medications: RX: Albuterol Sulfate [Proair HFA Inhalation Aerosol 8.5 gm MDI] 2 puff IH Q6HP PRN 07/24/18 RX: Aspirin [Aspirin 81 mg Chewable Tablet] 81 mg PO QAM 07/24/18 RX: Buspirone HCl [Buspar 15 mg Tablet] 7.5 mg PO BID 07/24/18 RX: Carvedilol [Coreg 3.125 mg Tablet] 3.125 mg PO Q12 07/24/18 RX: Donepezil HCl [Aricept] 10 mg PO QPM 07/24/18 RX: Duloxetine HCl [Cymbalta] 30 mg PO QAM 07/24/18 RX: Losartan/Hydrochlorothiazide [Hyzaar 50-12.5 Tablet] 1 tab PO QAM 07/24/18 RX: Pravastatin Sodium [Pravachol] 40 mg PO QHS 07/24/18 RX: Ranitidine HCl [Zantac 150 mg Tablet] 150 mg PO BID 07/24/18 History of Present Illness History of Present Illness: JERRY PELAEZ is a 87 year old male, He has a history of ischemic heart disease status post coronary artery stenting he came to the Emergency room for evaluation of atypical chest pain. He has had multiple ED visits for Evaluation of chest pains. Patient said he felt he needed IV fluid because he was dehydrated, he has not been drinking fluids regularly Hospital Course Hospital Course: Patient was admitted for management of chest pain the chest pain is atypical in character 3 sets of cardiac enzymes negative for acute NH he was treated with IV fluid half-normal saline because patient felt he was dehydrated and that he needed IV infusion Physical Exam Vital Signs: Temp Pulse Resp BP Pulse Ox 98.4 F 80 17 112/67 98 07/26/18 15:55 07/26/18 15:55 07/26/18 15:55 07/26/18 15:55 07/26/18 15:55 Intake & Output 07/25/18 07/26/18 07/27/18 06:59 06:59 06:59 Intake Total 760 737 5936 Output Total 100 700 600 Balance 650 265 670 Weight 83.5 kg 82.4 kg General appearance: PRESENT: no acute distress Head exam: PRESENT: atraumatic, normocephalic Eye exam: PRESENT: conjunctiva pink, EOMI, PERRLA Neck exam: PRESENT: full ROM Respiratory exam: PRESENT: clear to auscultation alicia Cardiovascular exam: PRESENT: RRR, +S1, +S2 Vascular exam: PRESENT: normal capillary refill GI/Abdominal exam: PRESENT: normal bowel sounds, soft Rectal exam: PRESENT: deferred Neurological exam: PRESENT: alert, awake, oriented to person, oriented to place, oriented to time, oriented to situation, CN II-XII grossly intact Psychiatric exam: PRESENT: appropriate affect, normal mood Skin exam: PRESENT: dry, intact, warm Results Laboratory Results: 07/24/18 15:17 07/24/18 15:17 07/24/18 07/24/18 07/24/18 15:17 15:17 20:13 Creatine Kinase 80 61 CK-MB (CK-2) 0.68 Troponin I < 0.012 07/24/18 07/25/18 07/25/18 20:13 02:02 02:02 Creatine Kinase 82 CK-MB (CK-2) 0.69 0.78 Troponin I < 0.012 < 0.012 07/25/18 07/25/18 08:52 08:52 Creatine Kinase 72 CK-MB (CK-2) 0.79 Troponin I < 0.012 Impressions: Chest X-Ray 07/24/18 14:55 IMPRESSION: NO ACUTE RADIOGRAPHIC FINDING IN THE CHEST. Qualifiers - * PATIENT BEING DISCHARGED WITH ANY OF THE FOLLOWING DIAGNOSIS: No
[2018-07-26] MEDS: ATORVASTATIN CALCIUM 10 MG TABLET PO SCH (21:12)
[2018-07-27] MEDS: BUSPIRONE HCL 10 MG TABLET PO SCH (05:25)
[2018-07-27] MEDS: DULOXETINE HCL 30 MG CAPSULE.DR PO SCH (07:51)
[2018-07-27] MEDS: ASPIRIN 81 MG TABLET, CHEWABLE PO SCH (07:51)
[2018-07-27 08:43] VITALS: BP 130/65
== END 2018-07-27 08:46 | disposition home or self-care (01) ==
LOC: ER 14:53 → EH 17:35 → 5 18:25
PROVIDERS: ADMIT Internal Medicine; ATTEND Internal Medicine
DX: R07.9 Chest pain, unspecified (principal); I25.10 Atherosclerotic heart disease of native coronary artery without angina pectoris; I10 Essential (primary) hypertension; E78.5 Hyperlipidemia, unspecified; F03.90 Unspecified dementia, unspecified severity, without behavioral disturbance, psychotic disturbance, mood disturbance, and anxiety; K21.9 Gastro-esophageal reflux disease without esophagitis; J45.909 Unspecified asthma, uncomplicated; Z82.49 Family history of ischemic heart disease and other diseases of the circulatory system; Z95.5 Presence of coronary angioplasty implant and graft; Z87.891 Personal history of nicotine dependence; Z88.1 Allergy status to other antibiotic agents; Z79.899 Other long term (current) drug therapy; Z86.74 Personal history of sudden cardiac arrest; Z86.73 Personal history of transient ischemic attack (TIA), and cerebral infarction without residual deficits
CPT/HCPCS: 93005; 99285; 36415 ×2; 82553 ×2; 82550 ×2; 85025; 80053; 84484 ×2; 71045; 93010; A9270 ×27; J1650 ×3; G0378; J3490

== ENCOUNTER 2018-09-05 16:26 | Emergency (ER) | payer MEDICARE, MEDICAID ==
--- NOTE | 2018-09-05 17:46 | ER Document Report ---
ED General - General Chief Complaint: Dizziness Stated Complaint: DIZZINESS Time Seen by Provider: 09/05/18 17:45 Primary Care Provider: LORETTA HUNTER MD [Primary Care Provider] - Follow up as needed Mode of Arrival: Medic Information source: Patient, Emergency Med Personnel, [facility] Records Notes: 87-year-old male with coronary artery disease, hyperlipidemia, hypertension, GERD, previous CVA presents with complaint of dizziness, nausea that started 2 days prior to arrival. Patient reports that he has been recently constipated, nauseous and took a stool softener yesterday evening which caused him to have a large bowel movement, abdominal cramping. Patient states that earlier today he went to the bank with his niece and when he went to get out of the car he felt very dizzy, off balance. Patient does admit to prior similar symptoms. He states he has also had intermittent right-sided chest pain since this morning. Chest pain was described as sharp, brief and without radiation. Patient had no associated shortness of breath, diaphoresis, . Patient does have a history of CABG approximately 10 years ago. He does take aspirin daily. TRAVEL OUTSIDE OF THE [place] IN LAST 30 DAYS: No - HPI Onset: Yesterday Onset/Duration: Gradual, Persistent Quality of pain: Sharp Associated symptoms: Chest pain, Diarrhea, Nausea. denies: Nonproductive cough, Productive cough, Fever, Headache, Vomiting, Shortness of breath, Sweating Exacerbated by: Walking Relieved by: Denies Similar symptoms previously: No Recently seen / treated by doctor: No - Related Data Allergies/Adverse Reactions: Sulfa (Sulfonamide Antibiotics) Allergy (Unknown, Verified 09/05/18 17:43) RASH Past Medical History - General Information source: Patient - Social History Smoking Status: Former Smoker Frequency of alcohol use: None Drug Abuse: None Lives with: Family Family History: Reviewed & Not Pertinent, CAD Patient has suicidal ideation: No Patient has homicidal ideation: No - Past Medical History Cardiac Medical History: Reports: Hx Coronary Artery Disease, Hx Heart Attack - x4, Hx Hypercholesterolemia, Hx Hypertension Denies: Hx Atrial Fibrillation, Hx Congestive Heart Failure Pulmonary Medical History: Reports: Hx Asthma, Hx Bronchitis, Hx Pneumonia Denies: Hx COPD, Hx Tuberculosis Neurological Medical History: Reports: Hx Cerebrovascular Accident - L SIDE WEAKNESS. Denies: Hx Seizures Renal/ Medical History: Denies: Hx End Stage Renal Disease, Hx Kidney Stones, Hx Peritoneal Dialysis Malignancy Medical History: Reports Hx Renal (Kidney) Cancer GI Medical History: Reports: Hx Gastroesophageal Reflux Disease, Hx Hepatitis. Denies: Hx Hiatal Hernia, Hx Ulcer Musculoskeletal Medical History: Reports Hx Arthritis Skin Medical History: Reports Hx MRSA Psychiatric Medical History: Reports: Hx Anxiety, Hx Dementia, Hx Depression Denies: Hx Bipolar Disorder, Hx Schizophrenia Traumatic Medical History: Reports: Hx Fractures Infectious Medical History: Reports: Hx Hepatitis Past Surgical History: Reports: Hx Abdominal Surgery, Hx Appendectomy, Hx Cardiac Catheterization, Hx Cardiac Surgery - x4, Hx Coronary Stent - X 4. Denies: Hx Bowel Surgery, Hx Cholecystectomy, Hx Open Heart Surgery, Hx Tonsillectomy - Immunizations Immunizations up to date: Yes Hx Diphtheria, Pertussis, Tetanus Vaccination: No Hx Pneumococcal Vaccination: 08/05/10 Review of Systems - Review of Systems Constitutional: Weakness. denies: Fever EENT: denies: Blurred vision Cardiovascular: Chest pain, Dizziness Respiratory: denies: Cough, Short of breath Gastrointestinal: Abdomen distended, Abdominal pain, Diarrhea, Nausea Genitourinary: denies: Dysuria, Hematuria Male Genitourinary: No symptoms reported Musculoskeletal: denies: Back pain Skin: denies: Rash Hematologic/Lymphatic: No symptoms reported Neurological/Psychological: Dementia. denies: Seizure, Headaches -: Yes All other systems reviewed and negative Physical Exam - Vital signs Vitals: Temp Resp BP Pulse Ox 98.4 F 8 L 112/68 95 09/05/18 17:01 09/05/18 17:01 09/05/18 17:01 09/05/18 17:01 - Notes Notes: PHYSICAL EXAMINATION: GENERAL: Well-appearing, well-nourished and in no acute distress. HEAD: Atraumatic, normocephalic. EYES: Pupils equal round and reactive to light, extraocular movements intact, sclera anicteric, conjunctiva are normal. No nystagmus. ENT: Nares patent, oropharynx clear without exudates. Moist mucous membranes. NECK: Normal range of motion, supple without lymphadenopathy LUNGS: Breath sounds clear to auscultation bilaterally and equal. No wheezes rales or rhonchi. HEART: Regular rate and rhythm without murmurs ABDOMEN: Soft, nontender, nondistended abdomen. No guarding, no rebound. No masses appreciated. Musculoskeletal: Normal range of motion, no pitting or edema. No cyanosis. NEUROLOGICAL: Cranial nerves grossly intact. Normal speech, normal gait. Normal sensory, motor exams PSYCH: Normal mood, normal affect. SKIN: Warm, Dry, normal turgor, no rashes or lesions noted. Course - Re-evaluation Re-evalutation: Laboratory 09/05/18 09/05/18 09/05/18 17:20 17:20 17:20 WBC 5.5 RBC 4.34 L Hgb 13.8 Hct 39.5 MCV 91 MCH 31.9 MCHC 35.0 RDW 13.6 Plt Count 274 Seg Neutrophils % 61.6 Lymphocytes % 19.9 Monocytes % 15.5 H Eosinophils % 2.5 Basophils % 0.5 Absolute Neutrophils 3.4 Absolute Lymphocytes 1.1 Absolute Monocytes 0.9 Absolute Eosinophils 0.1 Absolute Basophils 0.0 Sodium 136.2 L Potassium 3.8 Chloride 100 Carbon Dioxide 27 Anion Gap 9 BUN 18 Creatinine 1.12 Est GFR ( Amer) > 60 Est GFR (Non-Af Amer) > 60 Glucose 115 H Calcium 8.8 Total Bilirubin 0.9 Direct Bilirubin 0.3 Neonat Total Bilirubin Not Reportable Neonat Direct Bilirubin Not Reportable Neonat Indirect Bili Not Reportable AST 30 ALT 30 Alkaline Phosphatase 77 Creatine Kinase 43 L CK-MB (CK-2) 0.23 Troponin I < 0.012 Total Protein 6.6 Albumin 3.8 Urine Color Urine Appearance Urine pH Ur Specific [place] Urine Protein Urine Glucose (UA) Urine Ketones Urine Blood Urine Nitrite Urine Bilirubin Urine Urobilinogen Ur Leukocyte Esterase Urine WBC (Auto) Urine RBC (Auto) Squamous Epi Cells Auto Urine Mucus (Auto) Urine Ascorbic Acid 09/05/18 09/05/18 18:15 19:35 WBC RBC Hgb Hct MCV MCH MCHC RDW Plt Count Seg Neutrophils % Lymphocytes % Monocytes % Eosinophils % Basophils % Absolute Neutrophils Absolute Lymphocytes Absolute Monocytes Absolute Eosinophils Absolute Basophils Sodium Potassium Chloride Carbon Dioxide Anion Gap BUN Creatinine Est GFR ( Amer) Est GFR (Non-Af Amer) Glucose Calcium Total Bilirubin Direct Bilirubin Neonat Total Bilirubin Neonat Direct Bilirubin Neonat Indirect Bili AST ALT Alkaline Phosphatase Creatine Kinase CK-MB (CK-2) Troponin I < 0.012 Total Protein Albumin Urine Color YELLOW Urine Appearance CLEAR Urine pH 6.0 Ur Specific [place] 1.019 Urine Protein NEGATIVE Urine Glucose (UA) NEGATIVE Urine Ketones NEGATIVE Urine Blood NEGATIVE Urine Nitrite NEGATIVE Urine Bilirubin NEGATIVE Urine Urobilinogen 4.0 H Ur Leukocyte Esterase NEGATIVE Urine WBC (Auto) 1 Urine RBC (Auto) 1 Squamous Epi Cells Auto <1 Urine Mucus (Auto) RARE Urine Ascorbic Acid NEGATIVE Head CT 09/05/18 17:45 IMPRESSION: NORMAL BRAIN CT WITHOUT CONTRAST. EVIDENCE OF ACUTE STROKE: NO. Temp Pulse Resp BP Pulse Ox 98.6 F 95 11 L 101/70 97 09/05/18 19:01 09/05/18 17:44 09/05/18 20:01 09/05/18 20:01 09/05/18 20:01 87-year-old male with coronary artery disease, hyperlipidemia, hypertension, GERD, previous CVA presents with complaint of dizziness that started 2 days prior to arrival. Patient reports that he has been recently constipated, nauseous and took a stool softener yesterday evening which caused him to have a large bowel movement, abdominal cramping. Patient states that earlier today he went to the bank with his niece and when he went to get out of the car he felt very dizzy, off balance. Patient does admit to prior similar symptoms. He states he has also had intermittent right-sided chest pain since this morning. Chest pain was described as sharp, brief and without radiation. Vital signs reviewed and within normal limits upon arrival. Patient was placed on department of natural resources officer and EKG was obtained which showed the patient to be in normal sinus rhythm. Patient is orthostatic negative. CBC, CMP, cardiac enzymes including delta troponin are all within normal limits. CT of the head shows no acute process. 09/05/18 20:09 Patient reevaluated after receiving meclizine, IV fluids and states that he is feeling much better. He states "get me some paperwork so I can get out of here". Delta troponin pending. Patient agreeable with staying until it is resulted. 09/05/18 20:09 Patient is orthostatic negative. 09/05/18 20:43 Patient ambulated without difficulty, dizziness. Patient was evaluated and treated as appropriate for the patient's presenting symptoms and complaint, with consideration of any critical or life threatening conditions that may be associated with their obtained history and exam as noted above. All results were discussed with patient. Patient provided the opportunity to ask questions, and express concerns. Patient was educated on treatments based on their presumed diagnosis as noted above. At this time we will discharge the patient with return precautions and follow-up recommendations. Verbal discharge instructions given a the bedside. Medication warnings reviewed. Patient is in agreement with this plan and has verbalized understanding of return precautions. After careful consideration I feel that that patient can be safely discharged from the emergency department, they were advised to followup with a primary care physician in 2-3 days. Dictation on this chart was performed using voice recognition software and may result in unintended grammatical, spelling, syntax or errors. 09/06/18 01:59 09/06/18 02:00 09/06/18 02:01 - Vital Signs Vital signs: Temp Pulse Resp BP Pulse Ox 98.6 F 95 11 L 101/70 97 09/05/18 19:01 09/05/18 17:44 09/05/18 20:01 09/05/18 20:01 09/05/18 20:01 - Laboratory Result Diagrams: 09/05/18 17:20 09/05/18 17:20 Laboratory results interpreted by me: 09/05/18 09/05/18 09/05/18 17:20 17:20 18:15 RBC 4.34 L Monocytes % 15.5 H Sodium 136.2 L Glucose 115 H Creatine Kinase 43 L Urine Urobilinogen 4.0 H - Diagnostic Test Radiology reviewed: Image reviewed, Reports reviewed - EKG Interpretation by Me EKG shows normal: Sinus rhythm Rate: Normal Rhythm: NSR When compared to previous EKG there are: No significant change Discharge - Discharge Clinical Impression: Chest pain of uncertain etiology, Dizziness, Nausea Condition: Good Disposition: HOME, SELF-CARE Instructions: Chest Pain of Unclear Cause ([facility]), Dizziness ([facility]), Meclizine ([facility]) Additional Instructions: You were seen today for chest pain. The exact cause of your pain is unclear. However, based on your cardiac enzyme testing, chest x-ray, and EKG it does not appear that it is from an immediately life-threatening cause at this time. Although your testing here is normal is critical that you follow-up with your primary care physician for continued evaluation of this chest pain and possible stress testing. I recommended you see your physician within the next 24-48 hours to be evaluated for consideration of a stress test. Please return to emergency department immediately if you have worsening of your chest pain, shortness of breath, vomiting, become unable to exert yourself due to pain or difficulty breathing, you pass out, or have any pain that radiates into your arms, jaw, or back. Please also return if you have any additional symptoms that are concerning to you. Prescriptions: Meclizine HCl 25 mg PO Q8H PRN #[id number] tab.chew PRN Reason: Referrals: LORETTA HUNTER MD [Primary Care Provider] - Follow up as needed
[2018-09-05] MEDS ORDERED: MECLIZINE HCL 25 MG TABLET PO ONE (17:52)
[2018-09-05 17:56] LABS: ABSOLUTE EOSINOPHILS # (AUTO) 0.1 10^3/uL (0.0-0.6); ABSOLUTE LYMPHOCYTES (AUTO) 1.1 10^3/uL (0.5-4.7); ABSOLUTE MONOCYTES (AUTO) 0.9 10^3/uL (0.1-1.4); ABSOLUTE NEUT (AUTO) 3.4 10^3/uL (1.7-8.2); BASOPHILS % (AUTO) 0.5 % (0-2); EOSINOPHILS % (AUTO) 2.5 % (0-6); HEMATOCRIT 39.5 % (37.9-51.0); HEMOGLOBIN 13.8 g/dL (13.5-17.0); LYMPHOCYTES % (AUTO) 19.9 % (13-45); MEAN CORPUSCULAR HEMOGLOBIN 31.9 pg (27.0-33.4); MEAN CORPUSCULAR VOLUME 91 fl (80-97); MONOCYTES % (AUTO) 15.5 % (3-13); PLATELET COUNT 274 10^3/uL (150-450); RED BLOOD COUNT 4.34 10^6/uL (4.35-5.55); RED CELL DISTRIBUTION WIDTH 13.6 % (11.5-14.0); SEGMENTED NEUTROPHILS % (AUTO) 61.6 % (42-78); TOTAL CELLS COUNTED % (AUTO) 100 %; WHITE BLOOD COUNT 5.5 10^3/uL (4.0-10.5)
[2018-09-05 18:18] LABS: ALANINE AMINOTRANSFERASE 30 U/L (21-72); ALBUMIN 3.8 g/dL (3.5-5.0); ALKALINE PHOSPHATASE 77 U/L (38-126); ANION GAP 9 (5-19); ASPARTATE AMINO TRANSFERASE 30 U/L (17-59); BILIRUBIN,DIRECT 0.3 mg/dL (0.0-0.4); BILIRUBIN,TOTAL 0.9 mg/dL (0.2-1.3); BLOOD UREA NITROGEN 18 mg/dL (7-20); CALCIUM 8.8 mg/dL (8.4-10.2); CARBON DIOXIDE 27 mmol/L (22-30); CHLORIDE 100 mmol/L (98-107); CREATINE KINASE 43 U/L (55-170); GLUCOSE 115 mg/dL (75-110); POTASSIUM 3.8 mmol/L (3.6-5.0); SODIUM 136.2 mmol/L (137-145); TOTAL PROTEIN 6.6 g/dL (6.3-8.2)
[2018-09-05 18:21] LABS: CREATINE KINASE MB 0.23 ng/mL (<4.55)
[2018-09-05 18:25] LABS: TROPONIN I < 0.012 ng/mL
--- NOTE | 2018-09-05 18:27 | EKG REPORT ---
SEVERITY:- ABNORMAL ECG - SINUS RHYTHM NONSPECIFIC T ABNORMALITIES, ANT-LAT LEADS : Confirmed by: Jeffrey Fair MD 05-Sep-2018 18:27:03
--- NOTE | 2018-09-05 18:28 | RADIOLOGY REPORT (SQ) ---
EXAM DESCRIPTION: CT HEAD WITHOUT COMPLETED DATE/TIME: 09/05/2018 6:07 pm REASON FOR STUDY: dizzy COMPARISON: 01/13/2018 TECHNIQUE: Axial images acquired through the brain without intravenous contrast. Images reviewed wi th bone, brain and subdural windows. Additional sagittal and coronal reconstructions were generated. Images stored on PACS. All CT scanners at this facility use dose modulation, iterative reconstruction, and/or weight based d osing when appropriate to reduce radiation dose to as low as reasonably achievable (ALARA). [facility]: Dose Right [facility]: CareDose [facility]: Dose Right [facility]: Teradose 4D [facility]: [employer] RADIATION DOSE: CT Rad equipment meets quality standard of care and radiation dose reduction techniq ues were employed. CTDIvol: 53.2 mGy. DLP: 991 mGy-cm. mGy. LIMITATIONS: None. FINDINGS: VENTRICLES: Normal size and contour. CEREBRUM: No masses. No hemorrhage. No midline shift. No evidence for acute infarction. Normal gra y/white matter differentiation. No areas of low density in the white matter. CEREBELLUM: No masses. No hemorrhage. No alteration of density. No evidence for acute infarction. EXTRAAXIAL SPACES: No fluid collections. No masses. ORBITS AND GLOBE: No intra- or extraconal masses. Normal contour of globe without masses. CALVARIUM: No fracture. PARANASAL SINUSES: No fluid or mucosal thickening. SOFT TISSUES: No mass or hematoma. OTHER: No other significant finding. IMPRESSION: NORMAL BRAIN CT WITHOUT CONTRAST. EVIDENCE OF ACUTE STROKE: NO. COMMENT: Quality ID # [id number]: Final reports with documentation of one or more dose reduction techniques (e.g., Automated exposure control, adjustment of the mA and/or kV according to patient size, use of iterative reconstruction technique) TECHNICAL DOCUMENTATION: JOB ID: [id number] [employer]- All Rights Reserved Reading location - IP/workstation name: [email or web address]
[2018-09-05 18:40] LABS: APPEARANCE,URINE CLEAR; BILIRUBIN,URINE NEGATIVE (NEGATIVE); COLOR,URINE YELLOW; GLUCOSE, URINE NEGATIVE (NEGATIVE); KETONES,URINE NEGATIVE (NEGATIVE); LEUKOCYTE ESTERASE,URINE NEGATIVE (NEGATIVE); NITRITE,URINE NEGATIVE (NEGATIVE); PROTEIN,URINE NEGATIVE (NEGATIVE); URINE SPECIFIC GRAVITY 1.019
[2018-09-05 20:06] VITALS: BP 101/70
== END 2018-09-06 08:13 | disposition home or self-care (01) ==
LOC: ER 16:26
DX: R07.9 Chest pain, unspecified (principal); R42 Dizziness and giddiness; R11.0 Nausea; R10.9 Unspecified abdominal pain; R19.7 Diarrhea, unspecified; I25.10 Atherosclerotic heart disease of native coronary artery without angina pectoris; E78.5 Hyperlipidemia, unspecified; I10 Essential (primary) hypertension; Z86.73 Personal history of transient ischemic attack (TIA), and cerebral infarction without residual deficits; Z87.891 Personal history of nicotine dependence
CPT/HCPCS: 93005; 99284; 36415; 82553; 82550; 85025; 80053; 81001; 84484; 70450; 93010; A9270

== ENCOUNTER 2018-10-28 14:34 | Emergency (ER) | payer MEDICARE, MEDICAID ==
[2018-10-28] MEDS ORDERED: ASPIRIN 81 MG TABLET, CHEWABLE PO ONE (15:07)
[2018-10-28 15:17] LABS: ABSOLUTE BASOPHILS # (AUTO) 0.1 10^3/uL (0.0-0.2); ABSOLUTE EOSINOPHILS # (AUTO) 0.4 10^3/uL (0.0-0.6); ABSOLUTE MONOCYTES (AUTO) 0.8 10^3/uL (0.1-1.4); ABSOLUTE NEUT (AUTO) 5.3 10^3/uL (1.7-8.2); BASOPHILS % (AUTO) 1.4 % (0-2); EOSINOPHILS % (AUTO) 4.4 % (0-6); HEMATOCRIT 40.4 % (37.9-51.0); HEMOGLOBIN 14.2 g/dL (13.5-17.0); LYMPHOCYTES % (AUTO) 22.9 % (13-45); MEAN CORPUSCULAR HGB CONC 35.3 g/dL (32.0-36.0); MEAN CORPUSCULAR VOLUME 91 fl (80-97); MONOCYTES % (AUTO) 9.5 % (3-13); PLATELET COUNT 300 10^3/uL (150-450); RED BLOOD COUNT 4.45 10^6/uL (4.35-5.55); RED CELL DISTRIBUTION WIDTH 13.3 % (11.5-14.0); SEGMENTED NEUTROPHILS % (AUTO) 61.8 % (42-78); TOTAL CELLS COUNTED % (AUTO) 100 %; WHITE BLOOD COUNT 8.5 10^3/uL (4.0-10.5)
[2018-10-28 15:39] LABS: ALANINE AMINOTRANSFERASE 25 U/L (21-72); ALBUMIN 3.7 g/dL (3.5-5.0); ALKALINE PHOSPHATASE 92 U/L (38-126); ANION GAP 11 (5-19); ASPARTATE AMINO TRANSFERASE 32 U/L (17-59); BILIRUBIN,DIRECT 0.3 mg/dL (0.0-0.4); BILIRUBIN,TOTAL 0.7 mg/dL (0.2-1.3); BLOOD UREA NITROGEN 14 mg/dL (7-20); CALCIUM 9.5 mg/dL (8.4-10.2); CARBON DIOXIDE 24 mmol/L (22-30); CHLORIDE 99 mmol/L (98-107); CREATINE KINASE 58 U/L (55-170); GLUCOSE 206 mg/dL (75-110); POTASSIUM 3.8 mmol/L (3.6-5.0); TOTAL PROTEIN 6.9 g/dL (6.3-8.2)
[2018-10-28 15:50] LABS: CREATINE KINASE MB 0.46 ng/mL (<4.55)
[2018-10-28 15:51] LABS: TROPONIN I < 0.012 ng/mL
--- NOTE | 2018-10-28 15:52 | RADIOLOGY REPORT (SQ) ---
EXAM DESCRIPTION: CHEST SINGLE VIEW COMPLETED DATE/TIME: 10/28/2018 3:22 pm REASON FOR STUDY: cp COMPARISON: 07/24/2018 EXAM PARAMETERS: NUMBER OF VIEWS: One view. TECHNIQUE: Single frontal radiographic view of the chest acquired. RADIATION DOSE: NA LIMITATIONS: None. FINDINGS: LUNGS AND PLEURA: No opacities, masses or pneumothorax. No pleural effusion. MEDIASTINUM AND HILAR STRUCTURES: No masses. Contour normal. HEART AND VASCULAR STRUCTURES: Heart normal in size. Normal vasculature. BONES: No acute findings. HARDWARE: None in the chest. OTHER: No other significant finding. IMPRESSION: NO ACUTE RADIOGRAPHIC FINDING IN THE CHEST. TECHNICAL DOCUMENTATION: JOB ID: [id number] [employer]- All Rights Reserved Reading location - IP/workstation name: [email or web address]
--- NOTE | 2018-10-28 19:15 | ER Document Report ---
ED General - General Chief Complaint: Chest Pain Stated Complaint: CHEST PAIN Time Seen by Provider: 10/28/18 15:57 Primary Care Provider: LORETTA HUNTER MD [Primary Care Provider] - Follow up as needed TRAVEL OUTSIDE OF THE [place] IN LAST 30 DAYS: No - HPI Notes: Patient presents to the emergency department for evaluation of chest pain. He states it started about 1030 this morning while he was sitting in his bed at home. He states it felt like a tightness, nonradiating. He denies any associated symptoms. It lasted about 20 -30 minutes and went away. He denied any real associated symptoms with it, but states he became more concerned with it while it was there. He went to be evaluated his doctor's office and was sent here. He has not had any return of his chest pain. He has been taking his medications as prescribed. He has absolutely no complaints or concerns at this time. - Related Data Allergies/Adverse Reactions: Sulfa (Sulfonamide Antibiotics) Allergy (Unknown, Verified 09/05/18 17:43) RASH Past Medical History - General Information source: Patient - Social History Smoking Status: Former Smoker Frequency of alcohol use: None Drug Abuse: None Family History: Reviewed & Not Pertinent, CAD Patient has suicidal ideation: No Patient has homicidal ideation: No - Past Medical History Cardiac Medical History: Reports: Hx Coronary Artery Disease, Hx Heart Attack - x4, Hx Hypercholesterolemia, Hx Hypertension Denies: Hx Atrial Fibrillation, Hx Congestive Heart Failure Pulmonary Medical History: Reports: Hx Asthma, Hx Bronchitis, Hx Pneumonia Denies: Hx COPD, Hx Tuberculosis Neurological Medical History: Reports: Hx Cerebrovascular Accident - L SIDE WEAKNESS. Denies: Hx Seizures Renal/ Medical History: Denies: Hx End Stage Renal Disease, Hx Kidney Stones, Hx Peritoneal Dialysis Malignancy Medical History: Reports Hx Renal (Kidney) Cancer GI Medical History: Reports: Hx Gastroesophageal Reflux Disease, Hx Hepatitis. Denies: Hx Hiatal Hernia, Hx Ulcer Musculoskeletal Medical History: Reports Hx Arthritis Skin Medical History: Reports Hx MRSA Psychiatric Medical History: Reports: Hx Anxiety, Hx Dementia, Hx Depression Denies: Hx Bipolar Disorder, Hx Schizophrenia Traumatic Medical History: Reports: Hx Fractures Infectious Medical History: Reports: Hx Hepatitis Past Surgical History: Reports: Hx Abdominal Surgery, Hx Appendectomy, Hx Cardiac Catheterization, Hx Cardiac Surgery - x4, Hx Coronary Stent - X 4. Denies: Hx Bowel Surgery, Hx Cholecystectomy, Hx Open Heart Surgery, Hx Tonsillectomy - Immunizations Immunizations up to date: Yes Hx Diphtheria, Pertussis, Tetanus Vaccination: No Hx Pneumococcal Vaccination: 08/05/10 Review of Systems - Review of Systems Constitutional: No symptoms reported EENT: No symptoms reported Cardiovascular: No symptoms reported Respiratory: No symptoms reported Gastrointestinal: No symptoms reported Genitourinary: No symptoms reported Male Genitourinary: No symptoms reported Musculoskeletal: No symptoms reported Skin: No symptoms reported Physical Exam - Vital signs Vitals: Temp Pulse Resp BP Pulse Ox 98.2 F 97 16 105/67 96 10/28/18 14:44 10/28/18 14:44 10/28/18 14:44 10/28/18 14:44 10/28/18 14:44 - Notes Notes: Vital signs reviewed, please refer to chart. Patient is normocephalic, atraumatic. Pupils equal round, reactive to light. Neck is supple without meningismus. Heart is regular rate and rhythm. Lungs are clear to auscultation bilaterally. Abdomen is soft, nontender, normoactive bowel sounds throughout. Extremities without cyanosis, clubbing. No posterior calf tenderness. Peripher al pulses are equal. Skin is warm and dry. Patient is awake, alert, oriented x3. Course - Re-evaluation Re-evalutation: 10/28/18 19:13 Patient presents to the emergency department for evaluation of chest pain. He had had this chest pain several hours prior to his arrival. Cardiac enzymes, basic labs, EKG, chest x-ray ordered. Cardiac enzymes were negative, delta troponin was negative. Patient had no recurrence of his chest pain while he was here. Laboratory investigations were largely unremarkable. EKG revealed no acute ST changes, and was unchanged from prior study. Patient was anxious for discharge. He is told he needs to follow-up with his primary care physician in 1-2 days. He is to return to the emergency department with worsening or new concerning symptoms of any sort. He voiced understanding to this and was discharged. - Vital Signs Vital signs: Temp Pulse Resp BP Pulse Ox 98.2 F 97 13 113/67 96 10/28/18 14:44 10/28/18 14:44 10/28/18 18:01 10/28/18 18:01 10/28/18 18:01 - Laboratory Result Diagrams: 10/28/18 15:00 10/28/18 15:00 Laboratory results interpreted by me: 10/28/18 15:00 Sodium 134.0 L Glucose 206 H - Diagnostic Test Radiology reviewed: Reports reviewed - No acute cardiopulmonary disease - EKG Interpretation by Me Additional EKG results interpreted by me: 10/28/18 19:15 Sinus mechanism with a rate of 91 bpm. Normal axis and intervals, nonspecific ST changes. No acute changes concerning for ischemia or infarction. Unchanged from prior study performed September 05, 2018 Discharge - Discharge Clinical Impression: Chest pain of uncertain etiology Condition: Stable Disposition: HOME, SELF-CARE Instructions: Chest Pain of Unclear Cause ([facility]) Additional Instructions: Follow-up with your doctor in 1-2 days. If your chest pain returns, or if you develop new or concerning symptoms of any sort, return immediately to the emergency department for reevaluation. Referrals: LORETTA HUNTER MD [Primary Care Provider] - Follow up as needed
[2018-10-28 19:48] VITALS: BP 150/76
--- NOTE | 2018-10-28 21:51 | EKG REPORT ---
SEVERITY:- BORDERLINE ECG - SINUS RHYTHM BORDERLINE T ABNORMALITIES, ANT-LAT LEADS : Confirmed by: Marta Jules MD 28-Oct-2018 21:49:29
== END 2018-10-28 19:48 | disposition home or self-care (01) ==
LOC: ER 14:34
DX: R07.9 Chest pain, unspecified (principal); I25.10 Atherosclerotic heart disease of native coronary artery without angina pectoris; E78.00 Pure hypercholesterolemia, unspecified; I10 Essential (primary) hypertension; I69.354 Hemiplegia and hemiparesis following cerebral infarction affecting left non-dominant side; Z88.2 Allergy status to sulfonamides; I25.2 Old myocardial infarction
CPT/HCPCS: 36415; 71045; 80053; 82550; 82553; 84484; 85025; 93005; 93010; 99285

== ENCOUNTER 2019-03-23 12:20 | Emergency (ER) | payer MEDICARE, MEDICAID ==
[2019-03-23] MEDS ORDERED: ASPIRIN 81 MG TABLET, CHEWABLE PO ONE (12:26)
[2019-03-23 13:14] LABS: ABSOLUTE BASOPHILS # (AUTO) 0.1 10^3/uL (0.0-0.2); ABSOLUTE EOSINOPHILS # (AUTO) 0.3 10^3/uL (0.0-0.6); ABSOLUTE MONOCYTES (AUTO) 0.9 10^3/uL (0.1-1.4); ABSOLUTE NEUT (AUTO) 5.8 10^3/uL (1.7-8.2); BASOPHILS % (AUTO) 0.7 % (0-2); EOSINOPHILS % (AUTO) 2.8 % (0-6); HEMATOCRIT 42.1 % (37.9-51.0); HEMOGLOBIN 14.8 g/dL (13.5-17.0); LYMPHOCYTES % (AUTO) 22.6 % (13-45); MEAN CORPUSCULAR HEMOGLOBIN 32.8 pg (27.0-33.4); MEAN CORPUSCULAR HGB CONC 35.1 g/dL (32.0-36.0); MEAN CORPUSCULAR VOLUME 94 fl (80-97); MONOCYTES % (AUTO) 9.5 % (3-13); PLATELET COUNT 343 10^3/uL (150-450); RED BLOOD COUNT 4.51 10^6/uL (4.35-5.55); RED CELL DISTRIBUTION WIDTH 13.7 % (11.5-14.0); SEGMENTED NEUTROPHILS % (AUTO) 64.4 % (42-78); TOTAL CELLS COUNTED % (AUTO) 100 %
[2019-03-23] MEDS ORDERED: NITROGLYCERIN 0.4 MG/TAB 25 TAB/BOTTLE SL ONE (13:18)
--- NOTE | 2019-03-23 13:22 | ER Document Report ---
ED Cardiac - General Chief Complaint: Chest Pain Stated Complaint: CHEST PAIN Time Seen by Provider: 03/23/19 13:18 Primary Care Provider: STEVEN PÉREZ MD [Primary Care Provider] - Follow up as needed TRAVEL OUTSIDE OF THE [place] IN LAST 30 DAYS: No - HPI Notes: Patient is an 88-year-old gentleman who presents to the emergency department for evaluation of dizziness and chest pain. He really cannot describe the chest pain for me. He states he has been dizzy for some time. He has been told it is "old age." He sleeps in a hospital bed, states is been getting progressively more dizzy. This morning he became acutely more dizzy. He states he just felt lightheaded, denies the sensation of the world spinning. He states that about half an hour after taking his morning medications he developed a chest pain. It radiates into his left arm. He really cannot describe it for me. He states he felt somewhat short of breath with it. He states he has had similar pains in the past. He states that he has these at night sometimes when he lays on his back or on his stomach. He states that also seems to make his dizziness worse as well. - Related Data Allergies/Adverse Reactions: Sulfa (Sulfonamide Antibiotics) Allergy (Unknown, Verified 03/23/19 12:48) RASH Home Medications: Aspirin, BuSpar, Coreg, donepezil, duloxetine, losartan/HCTZ, pravastatin, ranitidine Past Medical History - General Information source: Patient - Social History Smoking Status: Former Smoker Frequency of alcohol use: None Family History: Reviewed & Not Pertinent, CAD Patient has suicidal ideation: No Patient has homicidal ideation: No - Past Medical History Cardiac Medical History: Reports: Hx Coronary Artery Disease, Hx Heart Attack - x4, Hx Hypercholesterolemia, Hx Hypertension Denies: Hx Atrial Fibrillation, Hx Congestive Heart Failure Pulmonary Medical History: Reports: Hx Asthma, Hx Bronchitis, Hx Pneumonia Denies: Hx COPD, Hx Tuberculosis Neurological Medical History: Reports: Hx Cerebrovascular Accident - L SIDE WEAKNESS. Denies: Hx Seizures Renal/ Medical History: Denies: Hx End Stage Renal Disease, Hx Kidney Stones, Hx Peritoneal Dialysis Malignancy Medical History: Reports Hx Renal (Kidney) Cancer GI Medical History: Reports: Hx Gastroesophageal Reflux Disease, Hx Hepatitis. Denies: Hx Hiatal Hernia, Hx Ulcer Musculoskeletal Medical History: Reports Hx Arthritis, Denies Hx Systemic Lupus Erythematosus Skin Medical History: Reports Hx MRSA Psychiatric Medical History: Reports: Hx Anxiety, Hx Dementia, Hx Depression Denies: Hx Bipolar Disorder, Hx Schizophrenia Traumatic Medical History: Reports: Hx Fractures Infectious Medical History: Reports: Hx Hepatitis Past Surgical History: Reports: Hx Abdominal Surgery, Hx Appendectomy, Hx Cardiac Catheterization, Hx Cardiac Surgery - x4, Hx Coronary Stent - X 4. Denies: Hx Bowel Surgery, Hx Cholecystectomy, Hx Open Heart Surgery, Hx Tonsillectomy - Immunizations Immunizations up to date: Yes Hx Diphtheria, Pertussis, Tetanus Vaccination: No Hx Pneumococcal Vaccination: 08/05/10 Review of Systems - Review of Systems Constitutional: No symptoms reported EENT: No symptoms reported Cardiovascular: See HPI Respiratory: See HPI Gastrointestinal: No symptoms reported Genitourinary: No symptoms reported Musculoskeletal: No symptoms reported Skin: No symptoms reported Neurological/Psychological: See HPI Physical Exam - Vital signs Vitals: Pulse Ox 98 03/23/19 12:27 - Notes Notes: Vital signs reviewed, please refer to chart. Head is normocephalic, atraumatic. Pupils equal round, reactive to light. Neck is supple without meningismus. Heart is regular rate and rhythm. Lungs are clear to auscultation bilaterally. Abdomen is soft, nontender, normoactive bowel sounds throughout. Extremities without cyanosis, clubbing. Posterior calves are nontender. Peripheral pulses are equal. Skin is warm and dry. Patient is awake, alert very cooperative with examiner. Moves all 4 extremity spontaneously. No gross facial asymmetry. Course - Re-evaluation Re-evalutation: 03/23/19 13:22 Patient presents emergency department for evaluation. Given his history of d ementia he is an extremely poor historian. I did review his chart. It seems he has been here frequently with complaints of chest pain. He did agree to one sublingual nitroglycerin to see if this helps his pain. Laboratory investigations were obtained. EKG is unchanged. We will continue to monitor. 03/23/19 18:38 Patient became chest pain-free, unsure as to whether or not this was as a result of the sublingual nitroglycerin. He remained stable and chest pain-free throughout the course of his stay. The patient's pain is positional. It is not exertional. He has been admitted in the past with chest pain. At this point he is likely medical management only. He feels comfortable with the idea of going home and follow-up closely with primary care as well as cardiology. He understands if his pain returns he is to return to the ED for reevaluation. - Vital Signs Vital signs: Temp Pulse Resp BP Pulse Ox 10 L 115/70 96 03/23/19 17:01 03/23/19 17:01 03/23/19 17:01 - Laboratory Result Diagrams: 03/23/19 12:35 03/23/19 14:45 Laboratory results interpreted by me: 03/23/19 14:45 Sodium 133.6 L Glucose 153 H Creatine Kinase 50 L - EKG Interpretation by Me Additional EKG results interpreted by me: 03/23/19 18:40 Sinus tachycardia with a rate of 101 bpm. Normal axis intervals, nonspecific ST changes, but no acute changes concerning for ischemia or infarction. Discharge - Discharge Clinical Impression: Chest pain of uncertain etiology Condition: Stable Disposition: HOME, SELF-CARE Instructions: Chest Pain of Unclear Cause ([facility]) Additional Instructions: No clear cause was found for your chest pain here today. You need to follow-up with primary care as well as cardiology this week. Return to the emergency department with worsening or new concerning symptoms of any sort. Referrals: STEVEN PÉREZ MD [Primary Care Provider] - Follow up as needed
[2019-03-23 15:39] LABS: ALBUMIN 3.6 g/dL (3.5-5.0); ALKALINE PHOSPHATASE 85 U/L (38-126); ANION GAP 10 (5-19); ASPARTATE AMINO TRANSFERASE 32 U/L (17-59); BILIRUBIN,DIRECT 0.3 mg/dL (0.0-0.4); BILIRUBIN,TOTAL 0.6 mg/dL (0.2-1.3); BLOOD UREA NITROGEN 16 mg/dL (7-20); CALCIUM 8.7 mg/dL (8.4-10.2); CARBON DIOXIDE 24 mmol/L (22-30); CHLORIDE 100 mmol/L (98-107); CREATINE KINASE 50 U/L (55-170); GLUCOSE 153 mg/dL (75-110); POTASSIUM 3.9 mmol/L (3.6-5.0); TOTAL PROTEIN 6.7 g/dL (6.3-8.2)
--- NOTE | 2019-03-23 15:51 | EKG REPORT ---
SEVERITY:- ABNORMAL ECG - SINUS TACHYCARDIA BORDERLINE T ABNORMALITIES, ANT-LAT LEADS : Confirmed by: Marta Jules MD 23-Mar-2019 15:50:32
[2019-03-23 16:32] LABS: CREATINE KINASE MB 0.47 ng/mL (<4.55)
[2019-03-23 16:37] LABS: TROPONIN I < 0.012 ng/mL
[2019-03-23 18:50] VITALS: BP 99/66
== END 2019-03-23 19:58 | disposition home or self-care (01) ==
LOC: ER 12:20
DX: R07.9 Chest pain, unspecified (principal); R42 Dizziness and giddiness; R00.0 Tachycardia, unspecified; I25.10 Atherosclerotic heart disease of native coronary artery without angina pectoris; E78.00 Pure hypercholesterolemia, unspecified; I10 Essential (primary) hypertension; I69.954 Hemiplegia and hemiparesis following unspecified cerebrovascular disease affecting left non-dominant side; I25.2 Old myocardial infarction; Z88.2 Allergy status to sulfonamides; Z85.528 Personal history of other malignant neoplasm of kidney; Z86.14 Personal history of Methicillin resistant Staphylococcus aureus infection
CPT/HCPCS: 36415; 80053; 82550; 82553; 84484; 85025; 93005; 93010; 99285

== ENCOUNTER 2019-11-01 15:19 | Emergency (ER) | payer MEDICARE, MEDICAID ==
[2019-11-01] MEDS ORDERED: LIDOCAINE 2% URO-JET 5 ML KIT MM ONE (16:05)
--- NOTE | 2019-11-01 17:29 | ER Document Report ---
Entered by SAHARA ORDAZ SCRIBE 11/01/19 1602 Acting as scribe for:JAMES MAGALLON MD ED General - General Chief Complaint: Inability to Void Stated Complaint: URINARY PROBLEM Time Seen by Provider: 11/01/19 16:00 Primary Care Provider: STEVEN PÉREZ MD [Primary Care Provider] - Follow up as needed Information source: Patient Notes: This 89-year-old male patient presents to the emergency department today with what sounds like urinary retention. Patient states that he is "having problems with his water", further adding that "I just cannot pass this water". Patient complains of associated lower abdominal discomfort, described as a "pressure" sensation over his bladder. TRAVEL OUTSIDE OF THE [place] IN LAST 30 DAYS: No - Related Data Allergies/Adverse Reactions: Sulfa (Sulfonamide Antibiotics) Allergy (Unknown, Verified 11/01/19 15:30) RASH Past Medical History - General Information source: Patient - Social History Smoking Status: Never Smoker Cigarette use (# per day): No Chew tobacco use (# tins/day): No Frequency of alcohol use: None Drug Abuse: None Family History: Reviewed & Not Pertinent, CAD Patient has suicidal ideation: No Patient has homicidal ideation: No - Past Medical History Cardiac Medical History: Reports: Hx Coronary Artery Disease, Hx Heart Attack - x4, Hx Hypercholesterolemia, Hx Hypertension Denies: Hx Atrial Fibrillation, Hx Congestive Heart Failure Pulmonary Medical History: Reports: Hx Asthma, Hx Bronchitis, Hx Pneumonia Denies: Hx COPD, Hx Tuberculosis Neurological Medical History: Reports: Hx Cerebrovascular Accident - L SIDE WEAKNESS. Denies: Hx Seizures, Hx Parkinson's Disease Renal/ Medical History: Denies: Hx End Stage Renal Disease, Hx Kidney Stones, Hx Peritoneal Dialysis Malignancy Medical History: Reports Hx Renal (Kidney) Cancer GI Medical History: Reports: Hx Gastroesophageal Reflux Disease, Hx Hepatitis. Denies: Hx Hiatal Hernia, Hx Ulcer Musculoskeletal Medical History: Reports Hx Arthritis, Denies Hx Systemic Lupus Erythematosus Skin Medical History: Reports Hx MRSA Psychiatric Medical History: Reports: Hx Anxiety, Hx Dementia, Hx Depression Denies: Hx Bipolar Disorder, Hx Schizophrenia Traumatic Medical History: Reports: Hx Fractures Infectious Medical History: Reports: Hx Hepatitis Past Surgical History: Reports: Hx Abdominal Surgery, Hx Appendectomy, Hx Cardiac Catheterization, Hx Cardiac Surgery - x4, Hx Coronary Stent - X 4. Denies: Hx Bowel Surgery, Hx Cholecystectomy, Hx Open Heart Surgery, Hx Tonsill ectomy - Immunizations Immunizations up to date: Yes Hx Diphtheria, Pertussis, Tetanus Vaccination: No Hx Pneumococcal Vaccination: 08/05/10 Review of Systems - Review of Systems Constitutional: No symptoms reported EENT: No symptoms reported Cardiovascular: Chest pain - Chronic chest pains Respiratory: Cough - Chronic cough for almost 30 years. Gastrointestinal: No symptoms reported Genitourinary: See HPI, Retention Male Genitourinary: No symptoms reported Musculoskeletal: No symptoms reported Skin: No symptoms reported Hematologic/Lymphatic: No symptoms reported Neurological/Psychological: Anxiety -: Yes All other systems reviewed and negative Physical Exam - Vital signs Vitals: Temp Pulse Resp BP Pulse Ox 98.2 F 107 H 16 140/89 H 97 11/01/19 15:19 11/01/19 15:19 11/01/19 15:19 11/01/19 15:19 11/01/19 15:19 - General General appearance: Appears well, Alert In distress: None - HEENT Head: Normocephalic, Atraumatic Eyes: Normal Pupils: PERRL - Respiratory Respiratory status: No respiratory distress Breath sounds: Normal - Cardiovascular Rhythm: Regular - Decision Heart sounds: Normal auscultation Murmur: No - Abdominal Distension: Distended bladder Bowel sounds: Normal - Back Back: Normal - Extremities General upper extremity: Normal inspection General lower extremity: Normal inspection - Neurological Neuro grossly intact: Yes - Psychological Associated symptoms: Normal affect, Normal mood - Skin Skin Temperature: Warm Skin Moisture: Dry Skin Color: Normal Course - Re-evaluation Re-evalutation: 11/01/19 17:03 Camejo catheter was placed. Over 700 mL's of dark urine drained. - Vital Signs Vital signs: Temp Pulse Resp BP Pulse Ox 98.2 F 107 H 16 140/89 H 97 11/01/19 15:19 11/01/19 15:19 11/01/19 15:19 11/01/19 15:19 11/01/19 15:19 - Laboratory Result Diagrams: 11/01/19 17:00 11/01/19 17:00 Laboratory results interpreted by me: 11/01/19 11/01/19 11/01/19 16:30 17:00 17:00 WBC 11.9 H Absolute Neuts (auto) 8.5 H Sodium 131.5 L Glucose 161 H Creatine Kinase 46 L Urine Glucose (UA) >=500 H Urine Urobilinogen 4.0 H Discharge - Discharge Clinical Impression: Acute urinary retention Condition: Stable Disposition: HOME, SELF-CARE Additional Instructions: Urinary Retention: Urinary retention is inability to empty the bladder. It can result from a urine infection, or from mechanical problems such as an enlarged prostate gland or swelling of the urethra. Drugs or alcohol can also lead to urine retention. The condition is usually treated by passage of a catheter. If the physician thinks the problem will continue, the catheter may be left in place for a few days. Sometimes drugs are used to stimulate the bladder if the physician feels that inadequate bladder contraction is the cause. If the condition leading to the retention is a chronic one, such as an enlarged prostate, you will be referred to a specialist for further care. Call the physician or return if you develop fever, flank or back pain, pain on urination, or recurrent difficulty passing the urine. Leave the catheter in until you see a urologist. Drink plenty of fluids every day. Call [facility] office tomorrow morning to schedule an appointment this week. Follow-up with Dr. Pérez if having problems getting an appointment with the urologist. RETURN TO THE EMERGENCY ROOM IF ANY NEW OR WORSENING SYMPTOMS. Referrals: STEVEN PÉREZ MD [Primary Care Provider] - Follow up as needed [facility] [Provider Group] - Follow up tomorrow (Call tomorrow m rashel for an appointment this week.) I personally performed the services described in the documentation, reviewed and edited the documentation which was dictated to the scribe in my presence, and it accurately records my words and actions.
[2019-11-01] MEDS ORDERED: NORMAL SALINE 1000 ML 1,000 ML IV ONE (17:42)
[2019-11-01 17:47] LABS: ABSOLUTE BASOPHILS # (AUTO) 0.1 10^3/uL (0.0-0.2); ABSOLUTE EOSINOPHILS # (AUTO) 0.2 10^3/uL (0.0-0.6); ABSOLUTE LYMPHOCYTES (AUTO) 2.1 10^3/uL (0.5-4.7); ABSOLUTE MONOCYTES (AUTO) 0.9 10^3/uL (0.1-1.4); ABSOLUTE NEUT (AUTO) 8.5 10^3/uL (1.7-8.2); BASOPHILS % (AUTO) 0.7 % (0-2); EOSINOPHILS % (AUTO) 1.6 % (0-6); HEMATOCRIT 41.7 % (37.9-51.0); LYMPHOCYTES % (AUTO) 18.1 % (13-45); MEAN CORPUSCULAR HEMOGLOBIN 32.2 pg (27.0-33.4); MEAN CORPUSCULAR HGB CONC 35.8 g/dL (32.0-36.0); MEAN CORPUSCULAR VOLUME 90 fl (80-97); MONOCYTES % (AUTO) 7.9 % (3-13); PLATELET COUNT 346 10^3/uL (150-450); RED BLOOD COUNT 4.64 10^6/uL (4.35-5.55); RED CELL DISTRIBUTION WIDTH 13.3 % (11.5-14.0); SEGMENTED NEUTROPHILS % (AUTO) 71.7 % (42-78); TOTAL CELLS COUNTED % (AUTO) 100 %; WHITE BLOOD COUNT 11.9 10^3/uL (4.0-10.5)
[2019-11-01 18:06] LABS: ALBUMIN 3.9 g/dL (3.5-5.0); ALKALINE PHOSPHATASE 90 U/L (38-126); ANION GAP 10 (5-19); ASPARTATE AMINO TRANSFERASE 33 U/L (17-59); BILIRUBIN,DIRECT 0.1 mg/dL (0.0-0.4); BLOOD UREA NITROGEN 19 mg/dL (7-20); CALCIUM 9.2 mg/dL (8.4-10.2); CARBON DIOXIDE 24 mmol/L (22-30); CHLORIDE 98 mmol/L (98-107); CREATINE KINASE 46 U/L (55-170); GLUCOSE 161 mg/dL (75-110); POTASSIUM 4.1 mmol/L (3.6-5.0); TOTAL PROTEIN 7.2 g/dL (6.3-8.2)
[2019-11-01 18:10] LABS: APPEARANCE,URINE CLEAR; BILIRUBIN,URINE NEGATIVE (NEGATIVE); COLOR,URINE YELLOW; GLUCOSE, URINE >=500 mg/dL (NEGATIVE); KETONES,URINE NEGATIVE (NEGATIVE); LEUKOCYTE ESTERASE,URINE NEGATIVE (NEGATIVE); NITRITE,URINE NEGATIVE (NEGATIVE); PROTEIN,URINE NEGATIVE (NEGATIVE); URINE SPECIFIC GRAVITY 1.022
[2019-11-01 20:05] VITALS: BP 146/69
== END 2019-11-01 20:25 | disposition home or self-care (01) ==
LOC: ER 15:19
DX: R33.9 Retention of urine, unspecified (principal); F41.9 Anxiety disorder, unspecified; R05 Cough; I25.10 Atherosclerotic heart disease of native coronary artery without angina pectoris; I10 Essential (primary) hypertension; J45.909 Unspecified asthma, uncomplicated; R07.9 Chest pain, unspecified; G89.29 Other chronic pain; Z95.5 Presence of coronary angioplasty implant and graft; Z88.2 Allergy status to sulfonamides
CPT/HCPCS: 99283; 96360; 96361; 51702; 36415; 82550; 85025; 80053; 81001; J7030; A9270; J3490

== ENCOUNTER 2019-11-02 11:14 | Emergency (ER) | payer MEDICARE, MEDICAID ==
[2019-11-02 12:34] LABS: APPEARANCE,URINE SLIGHTLY-CLOUDY; BILIRUBIN,URINE NEGATIVE (NEGATIVE); COLOR,URINE AMBER; GLUCOSE, URINE 50 mg/dL (NEGATIVE); KETONES,URINE NEGATIVE (NEGATIVE); LEUKOCYTE ESTERASE,URINE MODERATE (NEGATIVE); NITRITE,URINE NEGATIVE (NEGATIVE); PROTEIN,URINE 100 mg/dL (NEGATIVE); URINE SPECIFIC GRAVITY 1.028
[2019-11-02 12:46] LABS: ABSOLUTE BASOPHILS # (AUTO) 0.1 10^3/uL (0.0-0.2); ABSOLUTE EOSINOPHILS # (AUTO) 0.2 10^3/uL (0.0-0.6); ABSOLUTE LYMPHOCYTES (AUTO) 1.8 10^3/uL (0.5-4.7); ABSOLUTE MONOCYTES (AUTO) 0.7 10^3/uL (0.1-1.4); BASOPHILS % (AUTO) 0.7 % (0-2); HEMATOCRIT 44.4 % (37.9-51.0); HEMOGLOBIN 15.3 g/dL (13.5-17.0); LYMPHOCYTES % (AUTO) 18.3 % (13-45); MEAN CORPUSCULAR HEMOGLOBIN 32.1 pg (27.0-33.4); MEAN CORPUSCULAR HGB CONC 34.5 g/dL (32.0-36.0); MEAN CORPUSCULAR VOLUME 93 fl (80-97); MONOCYTES % (AUTO) 7.4 % (3-13); PLATELET COUNT 381 10^3/uL (150-450); RED BLOOD COUNT 4.78 10^6/uL (4.35-5.55); RED CELL DISTRIBUTION WIDTH 13.3 % (11.5-14.0); SEGMENTED NEUTROPHILS % (AUTO) 71.6 % (42-78); TOTAL CELLS COUNTED % (AUTO) 100 %; WHITE BLOOD COUNT 9.7 10^3/uL (4.0-10.5)
[2019-11-02 13:22] LABS: ALBUMIN 3.9 g/dL (3.5-5.0); ALKALINE PHOSPHATASE 86 U/L (38-126); ANION GAP 12 (5-19); ASPARTATE AMINO TRANSFERASE 31 U/L (17-59); BILIRUBIN,TOTAL 0.9 mg/dL (0.2-1.3); BLOOD UREA NITROGEN 18 mg/dL (7-20); CALCIUM 9.1 mg/dL (8.4-10.2); CARBON DIOXIDE 25 mmol/L (22-30); CHLORIDE 98 mmol/L (98-107); GLUCOSE 197 mg/dL (75-110); POTASSIUM 4.2 mmol/L (3.6-5.0); TOTAL PROTEIN 7.1 g/dL (6.3-8.2)
[2019-11-02] MEDS ORDERED: CIPROFLOXACIN HCL 500 MG TABLET PO ONE (13:53)
--- NOTE | 2019-11-02 14:01 | ER Document Report ---
Entered by ML ASHTON SCRIBE 11/02/19 1221 Acting as scribe for:ANUJ ABBOTT MD ED General - General Chief Complaint: Groin Pain Stated Complaint: GROIN PAIN Time Seen by Provider: 11/02/19 11:32 Primary Care Provider: STEVEN PÉREZ MD [Primary Care Provider] - Follow up as needed Information source: Patient Notes: This 89-year-old male presents to the emergency department complaining of groin pain. Patient states that he is having a problem with his recently placed catheter and he would like to get it out. Patient was seen yesterday in this emergency department, was diagnosed with urinary retention and given a catheter. Patient states that when he tries to "pass water" now, he ends up having a bowel movement instead. Patients mentions that he "may not drink enough water". Patient denies testicular pain, fever, nausea, vomiting and chills. TRAVEL OUTSIDE OF THE [place] IN LAST 30 DAYS: No - Related Data Allergies/Adverse Reactions: Sulfa (Sulfonamide Antibiotics) Allergy (Unknown, Verified 11/01/19 15:30) RASH Past Medical History - General Information source: Patient - Social History Smoking Status: Former Smoker Cigarette use (# per day): No Chew tobacco use (# tins/day): No Frequency of alcohol use: None Drug Abuse: None Family History: Reviewed & Not Pertinent, CAD Patient has suicidal ideation: No Patient has homicidal ideation: No - Past Medical History Cardiac Medical History: Reports: Hx Coronary Artery Disease, Hx Heart Attack - x4, Hx Hypercholesterolemia, Hx Hypertension Pulmonary Medical History: Reports: Hx Asthma, Hx Bronchitis, Hx Pneumonia Neurological Medical History: Reports: Hx Cerebrovascular Accident - L SIDE WEAKNESS Malignancy Medical History: Reports Hx Renal (Kidney) Cancer GI Medical History: Reports: Hx Gastroesophageal Reflux Disease, Hx Hepatitis Musculoskeletal Medical History: Reports Hx Arthritis Skin Medical History: Reports Hx MRSA Psychiatric Medical History: Reports: Hx Anxiety, Hx Dementia, Hx Depression Traumatic Medical History: Reports: Hx Fractures Infectious Medical History: Reports: Hx Hepatitis Past Surgical History: Reports: Hx Abdominal Surgery, Hx Appendectomy, Hx Cardiac Catheterization, Hx Cardiac Surgery - x4, Hx Coronary Stent - X 4 - Immunizations Immunizations up to date: Yes Hx Diphtheria, Pertussis, Tetanus Vaccination: No Hx Pneumococcal Vaccination: 08/05/10 Review of Systems - Review of Systems Constitutional: See HPI. denies: Chills, Fever EENT: No symptoms reported Cardiovascular: See HPI. denies: Chest pain Respiratory: No symptoms reported Gastrointestinal: See HPI. denies: Nausea, Vomiting Genitourinary: No symptoms reported Male Genitourinary: See HPI. denies: Testicular pain Musculoskeletal: See HPI, Other - Groin Pain Skin: No symptoms reported Hematologic/Lymphatic: No symptoms reported Neurological/Psychological: No symptoms reported -: Yes All other systems reviewed and negative Physical Exam - Vital signs Vitals: Temp Pulse Resp BP Pulse Ox 97.8 F 98 18 147/75 H 98 11/02/19 11:20 11/02/19 11:20 11/02/19 11:20 11/02/19 11:20 11/02/19 11:20 - Notes Notes: Physical Exam: General: Alert, appears well. HEENT: Normocephalic. Atraumatic. PERRL. Extraocular movements intact. Oropharynx clear. Neck: Supple. Non-tender. Respiratory: No respiratory distress. Clear and equal breath sounds bilaterally. Cardiovascular: Regular rate and rhythm. Abdominal: Non-tender. Slightly distended. Normal Bowel Sounds. Male Genitourinary: No hernias. Non-tender. Camejo catheter in place and draining yellow urine. Back: No gross abnormalities. Extremities: Moves all four extremities. Upper extremities: Normal inspection. Normal ROM. Lower extremities: Normal inspection. No edema. Normal ROM. Neurological: Normal cognition. AAOx4. Normal speech. Psychological: Normal affect. Normal Mood. Skin: Warm. Dry. Normal color. Course - Re-evaluation Re-evalutation: 11/02/19 13:54 Patient resting comfortable. Camejo catheter has been removed patient states he feels much better. Less pain. - Vital Signs Vital signs: Temp Pulse Resp BP Pulse Ox 97.8 F 98 18 147/75 H 98 11/02/19 11:20 11/02/19 11:20 11/02/19 11:20 11/02/19 11:20 11/02/19 11:20 - Laboratory Result Diagrams: 11/02/19 10:46 11/02/19 10:46 Laboratory results interpreted by me: 11/02/19 11/02/19 10:46 11:50 Sodium 134.6 L Glucose 197 H Urine Protein 100 H Urine Glucose (UA) 50 H Urine Blood MODERATE H Urine Urobilinogen 4.0 H Ur Leukocyte Esterase MODERATE H Urinalysis shows moderate leukocyte esterase and blood present. Concerning for urinary tract infection. Will start patient on ciprofloxacin for 2 reasons urinalysis shows preps probable infection and patient has had instrumentation with Camejo catheter entry yesterday and and removal of catheter today. 11/02/19 13:56 Also noted elevated blood sugar 197 no evidence for any acidosis. Patient does not have a history of hyperglycemia noted in the chart. We will discussed with patient diet control. Also advised patient to increase p.o. fluids. Discharge - Discharge Clinical Impression: Urinary tract infection, Hyperglycemia Condition: Stable Disposition: HOME, SELF-CARE Instructions: Urinary Tract Infection ([facility]) Additional Instructions: Hyperglycemia (High Blood Sugar) You have an abnormally high blood sugar. Not all high blood sugar requires long-term treatment. High blood sugar can be due to medications, , or the stress of illness. (These cases are "borderline diabetes.") If the doctor feels your high blood sugar might resolve with time, you may not require treatment now. You will be scheduled for further evaluation. It's very important that you follow through, to see if the blood sugar returns to normal levels. Un controlled high blood sugar leads to early heart disease, strokes, nerve damage, eye damage, and kidney damage. Call the physician if there is faintness, excess sleepiness, or very rapid breathing. The urinary Camejo catheter that was inserted yesterday is removed today at your request. If there is further problems of urinary obstruction you may need to return to the emergency department for a replacement of the urinary bladder catheter again. Hopefully that does not occur. Increase your fluids as discussed. Take ciprofloxacin twice a day to treat urinary tract infection. Also instructions sent to you regarding your blood sugar elevation today. Follow-up with your primary care physician within a few days. Prescriptions: Ciprofloxacin HCl [Cipro 500 mg Tablet] 500 mg PO BID #20 tablet Referrals: STEVEN PÉREZ MD [Primary Care Provider] - Follow up as needed I personally performed the services described in the documentation, reviewed and edited the documentation which was dictated to the scribe in my presence, and it accurately records my words and actions.
[2019-11-02 14:38] VITALS: BP 134/78
== END 2019-11-02 15:01 | disposition home or self-care (01) ==
LOC: ER 11:14
DX: N39.0 Urinary tract infection, site not specified (principal); R73.9 Hyperglycemia, unspecified; R10.30 Lower abdominal pain, unspecified; I25.10 Atherosclerotic heart disease of native coronary artery without angina pectoris; E78.00 Pure hypercholesterolemia, unspecified; I10 Essential (primary) hypertension; I69.354 Hemiplegia and hemiparesis following cerebral infarction affecting left non-dominant side; Z88.2 Allergy status to sulfonamides; Z85.528 Personal history of other malignant neoplasm of kidney; Z86.14 Personal history of Methicillin resistant Staphylococcus aureus infection; I25.2 Old myocardial infarction
CPT/HCPCS: 99283; 36415; 83605; 83690; 85025; 80053; 81001; A9270

== ENCOUNTER 2019-11-03 10:52 | Emergency (ER) | payer MEDICARE, MEDICAID ==
--- NOTE | 2019-11-03 11:17 | ER Document Report ---
ED General - General Chief Complaint: Inability to Void Stated Complaint: UNABLE TO URINATE Time Seen by Provider: 11/03/19 11:06 Primary Care Provider: STEVEN PÉREZ MD [Primary Care Provider] - Follow up as needed Mode of Arrival: Medic Information source: Patient, [facility] Records TRAVEL OUTSIDE OF THE [place] IN LAST 30 DAYS: No - HPI Onset: Last week Onset/Duration: Persistent Quality of pain: Pressure, Throbbing Severity: Moderate Pain Level: 2 Context: Patient is an 89-year-old male presenting to the emergency department chief complaint of urinary retention. Patient states that he was seen a couple days ago for the same complaint and had a Camejo catheter placed. He states yesterday he came back because the catheter was too uncomfortable he had that removed. Patient was found to have a UTI yesterday and provider started him on Cipro. Patient states that he is not urinated since he left the department yesterday and presents today for evaluation and treatment. At time of presentation I explained to the patient the main treatment for urinary retention is Camejo catheter placement and follow-up with urology. Associated symptoms: None Exacerbated by: Movement, Walking Relieved by: Denies Similar symptoms previously: Yes Recently seen / treated by doctor: Yes - Related Data Allergies/Adverse Reactions: Sulfa (Sulfonamide Antibiotics) Allergy (Unknown, Verified 11/03/19 11:35) RASH Past Medical History - General Information source: Patient, [facility] Records - Social History Smoking Status: Unknown if Ever Smoked Chew tobacco use (# tins/day): No Frequency of alcohol use: None Drug Abuse: None Lives with: Family Family History: Reviewed & Not Pertinent, CAD Patient has suicidal ideation: No Patient has homicidal ideation: No - Past Medical History Cardiac Medical History: Reports: Hx Coronary Artery Disease, Hx Heart Attack - x4, Hx Hypercholesterolemia, Hx Hypertension Denies: Hx Atrial Fibrillation, Hx Congestive Heart Failure Pulmonary Medical History: Reports: Hx Asthma, Hx Bronchitis, Hx Pneumonia Denies: Hx COPD, Hx Tuberculosis Neurological Medical History: Reports: Hx Cerebrovascular Accident - L SIDE WEAKNESS. Denies: Hx Seizures, Hx Parkinson's Disease Renal/ Medical History: Denies: Hx End Stage Renal Disease, Hx Kidney Stones, Hx Peritoneal Dialysis Malignancy Medical History: Reports Hx Renal (Kidney) Cancer GI Medical History: Reports: Hx Gastroesophageal Reflux Disease, Hx Hepatitis. Denies: Hx Hiatal Hernia, Hx Ulcer Musculoskeletal Medical History: Reports Hx Arthritis, Denies Hx Systemic Lupus Erythematosus Skin Medical History: Reports Hx MRSA Psychiatric Medical History: Reports: Hx Anxiety, Hx Dementia, Hx Depression Denies: Hx Bipolar Disorder, Hx Schizophrenia Traumatic Medical History: Reports: Hx Fractures Infectious Medical History: Reports: Hx Hepatitis Past Surgical History: Reports: Hx Abdominal Surgery, Hx Appendectomy, Hx Cardiac Catheterization, Hx Cardiac Surgery - x4, Hx Coronary Stent - X 4. Denies: Hx Bowel Surgery, Hx Cholecystectomy, Hx Open Heart Surgery, Hx Tonsillectomy - Immunizations Immunizations up to date: Yes Hx Diphtheria, Pertussis, Tetanus Vaccination: No Hx Pneumococcal Vaccination: 08/05/10 Review of Systems - Review of Systems Constitutional: No symptoms reported EENT: No symptoms reported Cardiovascular: No symptoms reported Respiratory: No symptoms reported Gastrointestinal: No symptoms reported Genitourinary: See HPI Male Genitourinary: No symptoms reported Musculoskeletal: No symptoms reported Skin: No symptoms reported Hematologic/Lymphatic: No symptoms reported Neurological/Psychological: No symptoms reported -: Yes All other systems reviewed and negative Physical Exam - Vital signs Vitals: Pulse Ox 83 L 11/03/19 10:55 - Notes Notes: PHYSICAL EXAMINATION: GENERAL: Well-appearing, well-nourished and in no acute distress. HEAD: Atraumatic, normocephalic. EYES: Pupils equal round and reactive to light, extraocular movements intact, sclera anicteric, conjunctiva are normal. ENT: nares patent, oropharynx clear without exudates. Moist mucous membranes. NECK: Normal range of motion, supple without lymphadenopathy, no appreciable JVD LUNGS: Lungs clear to auscultation bilaterally and equal. No wheezes rales or rhonchi. HEART: Regular rate and rhythm without murmurs ABDOMEN: Soft, slightly distended tenderness is appreciated over the suprapubic region. Patient will be reevaluated after Camejo placed EXTREMITIES: Active full range of motion, no pitting or edema. No cyanosis. 2+ pulses x4 NEUROLOGICAL: No focal neurological deficits. Moves all extremities spontaneously and on command. SKIN: Warm, Dry, and intact. Normal turgor, no rashes or lesions noted. Course - Re-evaluation Re-evalutation: 11/03/19 12:01 Camejo catheter was placed by nursing staff. Patient tolerated the procedure well. Patient had an immediate relief of the lower abdominal pain. Urine output was 550 cc. Patient will be discharged home with the Camejo catheter in place. Patient is instructed to follow-up with urology as soon as possible. - Vital Signs Vital signs: Temp Pulse Resp BP Pulse Ox 98 F 129/84 H 98 11/03/19 10:56 11/03/19 10:56 11/03/19 11:00 Discharge - Discharge Clinical Impression: Acute urinary retention Condition: Stable Disposition: HOME, SELF-CARE Referrals: STEVEN PÉREZ MD [Primary Care Provider] - Follow up as needed LYDIA LANDIN MD [NO LOCAL MD] - Follow up as needed
[2019-11-03 12:15] VITALS: BP 131/68
== END 2019-11-03 12:38 | disposition home or self-care (01) ==
LOC: ER 10:52
DX: R33.9 Retention of urine, unspecified (principal); N39.0 Urinary tract infection, site not specified; I25.10 Atherosclerotic heart disease of native coronary artery without angina pectoris; I10 Essential (primary) hypertension; J45.909 Unspecified asthma, uncomplicated; Z85.528 Personal history of other malignant neoplasm of kidney; Z88.2 Allergy status to sulfonamides; Z95.5 Presence of coronary angioplasty implant and graft
CPT/HCPCS: 51702; 99283